=== PATIENT | female | born 1955 | race Hispanic/Latino ===

== ENCOUNTER 2018-11-01 11:42 | Emergency (ER) | payer OTHER ==
[2018-11-01] MEDS ORDERED: LORAZEPAM 0.5 MG TABLET ONE (12:15)
--- NOTE | 2018-11-01 12:25 | RAD REPORT ---
EXAM DESCRIPTION: CT - Head Brain Wo Cont - 11/01/2018 12:17 pm CLINICAL HISTORY: HEADACHE Headache, drowsiness COMPARISON: No comparisonsHEAD BRAIN W O CONTRAST dated 02/01/2013 TECHNIQUE: All CT scans are performed using dose optimization technique as appropriate and may inclu de automated exposure control or mA/KV adjustment according to patient size. FINDINGS: No intracranial hemorrhage, hydrocephalus or extra-axial fluid collection.No areas of brai n edema or evidence of midline shift. The paranasal sinuses and mastoids are clear. The calvarium is intact. IMPRESSION: No acute intracranial abnormality.
--- NOTE | 2018-11-01 13:21 | EDPHYS ---
Physician Documentation [facility] Name: Rosi Gaytan Age: 63 yrs Sex: Female : 1955 Arrival Date: 11/01/2018 Time: 11:45 Bed 13 Private MD: SHERLYN Physician Don Cordero HPI: 11/01 13:18 This 63 yrs old Female presents to ER via Ambulatory with complaints of pm1 Headache. 13:18 The patient complains of pain to the whole head. The patient describes the headache as pm1 aching. Onset: The symptoms/episode began/occurred just prior to arrival. Associated signs and symptoms: The patient has no apparent associated signs or symptoms, Pertinent negatives: dizziness, fever, nausea, rash, vomiting, weakness. Headache History: The patient has had previous headaches and this one is similar to previous episodes. The symptoms are alleviated by nothing. the symptoms are aggravated by stress, argument with . The patient has experienced similar episodes in the past, multiple times, and the symptoms today are exactly the same, to previous headaches with argument with her . Patient discovered that her was sleeping with prostitutes 3 months ago. He has tried to come home multiple times, today was the tenth time, but they get in arguments and he leaves. Today she had an argument with him and she was shaking all over and had a headache. 13:18 They are in the process of getting a divorce. pm1 Historical: - Allergies: 11:48 Ampicillin; sv - PMHx: 11:48 Diabetes - IDDM; GERD; Hyperlipidemia; Hypertension; Thyroid problem; sv - PSHx: 11:48 Tubal ligation; sv - Immunization history:: Adult Immunizations up to date. - Social history:: Smoking status: Patient/guardian denies using tobacco. - Ebola Screening: : No symptoms or risks identified at this time. ROS: 13:18 Constitutional: Negative for fever, chills, and weight loss, Eyes: Negative for injury, pm1 pain, redness, and discharge, ENT: Negative for injury, pain, and discharge, Neck: Negative for injury, pain, and swelling, Cardiovascular: Negative for chest pain, palpitations, and edema, Respiratory: Negative for shortness of breath, cough, wheezing, and pleuritic chest pain, Abdomen/GI: Negative for abdominal pain, nausea, vomiting, diarrhea, and constipation, Back: Negative for injury and pain, : Negative for injury, bleeding, discharge, and swelling, MS/Extremity: Negative for injury and deformity, Skin: Negative for injury, rash, and discoloration. 13:18 Neuro: Positive for headache, Negative for dizziness, numbness, tingling, weakness. Exam: 13:18 Constitutional: This is a well developed, well nourished patient who is awake, alert, pm1 and in no acute distress. Head/Face: Normocephalic, atraumatic. Eyes: Pupils equal round and reactive to light, extra-ocular motions intact. Lids and lashes normal. Conjunctiva and sclera are non-icteric and not injected. Cornea within normal limits. Periorbital areas with no swelling, redness, or edema. ENT: Nares patent. No nasal discharge, no septal abnormalities noted. Tympanic membranes are normal and external auditory canals are clear. Oropharynx with no redness, swelling, or masses, exudates, or evidence of obstruction, uvula midline. Mucous membranes moist. Neck: Trachea midline, no thyromegaly or masses palpated, and no cervical lymphadenopathy. Supple, full range of motion without nuchal rigidity, or vertebral point tenderness. No Meningismus. Chest/axilla: Normal chest wall appearance and motion. Nontender with no deformity. No lesions are appreciated. Cardiovascular: Regular rate and rhythm with a normal S1 and S2. No gallops, murmurs, or rubs. Normal PMI, no JVD. No pulse deficits. Respiratory: Lungs have equal breath sounds bilaterally, clear to auscultation and percussion. No rales, rhonchi or wheezes noted. No increased work of breathing, no retractions or nasal flaring. Abdomen/GI: Soft, non-tender, with normal bowel sounds. No distension or tympany. No guarding or rebound. No evidence of tenderness throughout. Back: No spinal tenderness. No costovertebral tenderness. Full range of motion. Skin: Warm, dry with normal turgor. Normal color with no rashes, no lesions, and no evidence of cellulitis. MS/ Extremity: Pulses equal, no cyanosis. Neurovascular intact. Full, normal range of motion. 13:18 Neuro: Orientation: is normal, Motor: is normal, moves all fours, strength is normal, strength is 5/5 in all extremities, Sensation: is normal, no obvious gross deficits. 13:18 Psych: Behavior/mood is anxious, Affect is animated, crying. Vital Signs: 11:48 BP 196 / 103; Pulse 103; Resp 22; Pulse Ox 100% ; Weight 102.51 kg; Height 5 ft. 2 in. sv (157.48 cm); Pain 0/10; 12:25 BP 169 / 103; Pulse 80; Resp 18; Temp 97.8(O); Pulse Ox 99% on R/A; mh5 13:16 BP 161 / 84; Pulse 77; Resp 17; Temp 97.5(O); Pulse Ox 100% on R/A; mh5 11:48 Body Mass Index 41.34 (102.51 kg, 157.48 cm) sv MDM: 11:56 Patient medically screened. pm1 13:18 Data reviewed: vital signs. Data interpreted: Pulse oximetry: on room air is 100 %. pm1 Interpretation: normal. Counseling: I had a detailed discussion with the patient and/or guardian regarding: the historical points, exam findings, and any diagnostic results supporting the discharge/admit diagnosis, radiology results, the need for outpatient follow up, to return to the emergency department if symptoms worsen or persist or if there are any questions or concerns that arise at home. 11/01 12:07 Order name: CT Head Brain wo Cont; Complete Time: 12:34 pm1 Administered Medications: 12:14 Drug: Ativan 0.5 mg Route: PO; bp 13:48 Follow up: Response: Anxiety decreased bp Disposition: 11/02 08:20 Co-signature as Attending Physician, Don Cordero MD I agree with the assessment and arun plan of care. Disposition: 11/01/18 13:20 Discharged to Home. Impression: Acute stress reaction, Headache. - Condition is Stable. - Discharge Instructions: General Headache Without Cause, Stress and Stress Management. - Prescriptions for Ativan 0.5 mg Oral Tablet - take 1 tablet by ORAL route every 8 hours As needed; 6 tablet. - Medication Reconciliation Form, Thank You Letter, Antibiotic Education, Prescription Opioid Use form. - Follow up: Emergency Department; When: As needed; Reason: Worsening of condition. Follow up: Private Physician; When: 2 - 3 days; Reason: Recheck today's complaints, Continuance of care, Re-evaluation by your physician. - Problem is new. - Symptoms have improved. Signatures: Dispatcher [employer] EDMignon Hernandez RN RN Don Rose MD MD cha Marinas, Patrick, MATT HYDROSTATIC TUBING TESTER pm1 Flaquito Shearer, RN RN bp Corrections: (The following items were deleted from the chart) 11/01 13:51 13:20 11/01/2018 13:20 Discharged to Home. Impression: Acute stress reaction; Headache. bp Condition is Stable. Forms are Medication Reconciliation Form, Thank You Letter, Antibiotic Education, Prescription Opioid Use. Follow up: Emergency Department; When: As needed; Reason: Worsening of condition. Follow up: Private Physician; When: 2 - 3 days; Reason: Recheck today's complaints, Continuance of care, Re-evaluation by your physician. Problem is new. Symptoms have improved. pm1
--- NOTE | 2018-11-01 13:21 | ER ---
Nurse's Notes [facility] Name: Rosi Gaytan Age: 63 yrs Sex: Female : 1955 Arrival Date: 11/01/2018 Time: 11:45 Bed 13 Private MD: Diagnosis: Acute stress reaction;Headache Presentation: 11/01 11:46 Presenting complaint: Patient states: "My came and pissed me off and then I sv started shaking and my heart was racing." Pt reports feeling like this the other day but today was worse. Denies physical abuse. c/o headache. Transition of care: patient was not received from another setting of care. Onset of symptoms was November 01, 2018. Risk Assessment: Do you want to hurt yourself or someone else? Patient reports no desire to harm self or others. Care prior to arrival: None. 11:46 Method Of Arrival: Ambulatory sv 11:46 Acuity: BILL 3 sv 13:51 Initial Sepsis Screen: Does the patient meet any 2 criteria? No. Patient's initial bp sepsis screen is negative. Does the patient have a suspected source of infection? No. Patient's initial sepsis screen is negative. Triage Assessment: 12:00 General: Appears in no apparent distress. comfortable, obese, Behavior is cooperative, bp appropriate for age, anxious. Pain: Complains of pain in head. EENT: No deficits noted. Neuro: Level of Consciousness is awake, alert, obeys commands, Oriented to person, place, time, situation, Appropriate for age. Cardiovascular: No deficits noted. Respiratory: No deficits noted. GI: No signs and/or symptoms were reported involving the gastrointestinal system. : No signs and/or symptoms were reported regarding the genitourinary system. Derm: No deficits noted. Musculoskeletal: No deficits noted. Historical: - Allergies: 11:48 Ampicillin; sv - PMHx: 11:48 Diabetes - IDDM; GERD; Hyperlipidemia; Hypertension; Thyroid problem; sv - PSHx: 11:48 Tubal ligation; sv - Immunization history:: Adult Immunizations up to date. - Social history:: Smoking status: Patient/guardian denies using tobacco. - Ebola Screening: : No symptoms or risks identified at this time. Screenin:00 Abuse screen: Denies threats or abuse. Denies injuries from another. Nutritional bp screening: No deficits noted. Tuberculosis screening: No symptoms or risk factors identified. Fall Risk None identified. Assessment: 12:00 General: SEE TRIAGE NOTE. Pain: Complains of pain in head. bp 13:48 Reassessment: PT D/C HOME AMBULATORY, DX WITH ACUTE STRESS REACTION. bp Vital Signs: 11:48 BP 196 / 103; Pulse 103; Resp 22; Pulse Ox 100% ; Weight 102.51 kg; Height 5 ft. 2 in. sv (157.48 cm); Pain 0/10; 12:25 BP 169 / 103; Pulse 80; Resp 18; Temp 97.8(O); Pulse Ox 99% on R/A; mh5 13:16 BP 161 / 84; Pulse 77; Resp 17; Temp 97.5(O); Pulse Ox 100% on R/A; mh5 11:48 Body Mass Index 41.34 (102.51 kg, 157.48 cm) sv ED Course: 11:45 Patient arrived in ED. rg4 11:47 Triage completed. sv 11:48 Arm band placed on. sv 11:50 Niranjan Koehler NP is PHCP. pm1 11:50 Don Cordero MD is Attending Physician. pm1 12:00 Flaquito Shearer, R[place] is Primary Nurse. bp 12:22 CT Head Brain wo Cont In Process Unspecified. EDMS 13:16 Patient has correct armband on for positive identification. Call light in reach. Pulse mh5 ox on. NIBP on. 13:48 No provider procedures requiring assistance completed. Patient did not have IV access bp during this emergency room visit. Administered Medications: 12:14 Drug: Ativan 0.5 mg Route: PO; bp 13:48 Follow up: Response: Anxiety decreased bp Outcome: 13:20 Discharge ordered by . pm1 13:49 Discharged to home ambulatory. bp 13:49 Condition: stable 13:49 Discharge instructions given to patient, Instructed on discharge instructions, follow up and referral plans. medication usage, Demonstrated understanding of instructions, follow-up care, medications, Prescriptions given X 1. 13:51 Patient left the ED. bp Signatures: Dispatcher [employer] EDMignon Hernandez RN RN Niranjan Koehler NP PROJECT DIRECTOR pm1 Ines Rodriguez rg4 Viv Atkins [facility] Flaquito Shearer RN RN bp Corrections: (The following items were deleted from the chart) 11:46 Presenting complaint: Patient states: "My came and pissed me off and then sv I started shaking and my heart was racing." Pt reports feeling like this the other day but today was worse. Denies physical abuse. sv 11:46 Acuity: BILL 4 sv sv
[2018-11-01 14:03] VITALS: BP 161/84; TEMP 97.5; O2SAT 100
== END 2018-11-01 13:51 | disposition home or self-care (01) ==
LOC: ER 11:42
DX: F43.0 Acute stress reaction (principal); Z88.1 Allergy status to other antibiotic agents
CPT/HCPCS: 70450; 99284

== ENCOUNTER 2018-11-10 09:05 | Emergency (ER) | payer OTHER ==
[2018-11-10] MEDS ORDERED: LORAZEPAM 0.5 MG TABLET ONE (09:14)
--- NOTE | 2018-11-10 09:59 | ER ---
Nurse's Notes [facility] Name: Rosi Gaytan Age: 63 yrs Sex: Female : 1955 Arrival Date: 11/10/2018 Time: 09:10 Bed 17 Private MD: Diagnosis: Anxiety disorder, unspecified Presentation: 11/10 09:10 Presenting complaint: EMS states: Pt is going through a divorce, pt states "My jacobo got me upset.". Transition of care: patient was not received from another setting of care. Onset of symptoms was November 10, 2018. Risk Assessment: Do you want to hurt yourself or someone else? Patient reports no desire to harm self or others. Initial Sepsis Screen: Does the patient meet any 2 criteria? No. Patient's initial sepsis screen is negative. Does the patient have a suspected source of infection? No. Patient's initial sepsis screen is negative. Care prior to arrival: None. 09:10 Method Of Arrival: EMS: [facility] 09:10 Acuity: BILL 3 jl7 Historical: - Allergies: 09:12 Ampicillin; jl7 - PMHx: 09:12 Diabetes - IDDM; GERD; Hyperlipidemia; Hypertension; Thyroid problem; jl7 - PSHx: 09:12 Tubal ligation; jl7 - Immunization history:: Adult Immunizations unknown. - Social history:: Smoking status: unknown. - Ebola Screening: : No symptoms or risks identified at this time. Screenin:15 Abuse screen: Denies threats or abuse. Denies injuries from another. Nutritional jl7 screening: No deficits noted. Tuberculosis screening: No symptoms or risk factors identified. Fall Risk None identified. Assessment: 09:16 General: Appears in no apparent distress. uncomfortable, Behavior is cooperative, jl7 anxious, crying. Pain: Denies pain. Neuro: Level of Consciousness is awake, alert, obeys commands, Oriented to person, place, time, situation. Cardiovascular: Patient's skin is warm and dry. Respiratory: Airway is patent Respiratory effort is even, unlabored, Respiratory pattern is regular, symmetrical. GI: No signs and/or symptoms were reported involving the gastrointestinal system. : No signs and/or symptoms were reported regarding the genitourinary system. EENT: No signs and/or symptoms were reported regarding the EENT system. Derm: Skin is pink, warm \\T\\ dry. Musculoskeletal: No signs and/or symptoms reported regarding the musculoskeletal system. 09:45 Reassessment: Patient appears in no apparent distress at this time. Patient states jl7 feeling better. Patient states symptoms have improved. Vital Signs: 09:12 BP 160 / 64; Pulse 89; Resp 16 S; Temp 98.9(O); Pulse Ox 100% on R/A; jl7 10:11 BP 118 / 64; Pulse 87; Resp 16 S; Pulse Ox 98% on R/A; jl7 ED Course: 09:09 Liza Me[facility] F[facility]-C [facility]. kb 09:09 Don Cordero MD is Attending Physician. kb 09:10 Patient arrived in ED. jl7 09:12 Triage completed. jl7 09:12 Arm band placed on right wrist. jl7 09:13 Chris Cornejo RN is Primary Nurse. jl7 09:15 Patient has correct armband on for positive identification. Placed in gown. Bed in low jl7 position. Call light in reach. Side rails up X 1. court recording monitor on. Pulse ox on. NIBP on. Warm blanket given. 10:12 No provider procedures requiring assistance completed. Patient did not have IV access jl7 during this emergency room visit. Administered Medications: 09:15 Drug: Ativan 0.5 mg Route: PO; jl7 09:45 Follow up: Response: No adverse reaction; Anxiety decreased jl7 Outcome: 09:59 Discharge ordered by . kb 10:12 Discharged to home ambulatory. jl7 10:12 Condition: stable 10:12 Discharge instructions given to patient, family, Instructed on discharge instructions, follow up and referral plans. medication usage, Demonstrated understanding of instructions, follow-up care, medications, Prescriptions given X 1. 10:12 Patient left the ED. jl7 Signatures: Liza Meza FNP-C FNP-Chris Alicia, RN RN jl7
--- NOTE | 2018-11-10 10:00 | EDPHYS ---
Physician Documentation [facility] Name: Rosi Gaytan Age: 63 yrs Sex: Female : 1955 Arrival Date: 11/10/2018 Time: 09:10 Bed 17 Private MD: ED Physician Don Cordero HPI: 11/10 09:12 This 63 yrs old Female presents to ER via EMS with complaints of Anxiety. kb 09:12 The patient presents to the emergency department with anxiety, over a relationship. kb Onset: The symptoms/episode began/occurred just prior to arrival. Associated signs and symptoms: Pertinent positives; anxiety, tremor. Severity of symptoms: At their worst the symptoms were moderate in the emergency department the symptoms are unchanged. The patient has not experienced similar symptoms in the past. The patient has not recently seen a physician. Pt reports she got into an argument with her this morning. States she was here getting blood work done and he started yelling at her on the phone about the hospital charging too much money. States she drove back home and he continued to yell and cuss at her. She started shaking after that and felt tingling all over so she called 911. Pt is tearful while recalling argument with . Historical: - Allergies: 09:12 Ampicillin; jl7 - PMHx: 09:12 Diabetes - IDDM; GERD; Hyperlipidemia; Hypertension; Thyroid problem; jl7 - PSHx: 09:12 Tubal ligation; jl7 - Immunization history:: Adult Immunizations unknown. - Social history:: Smoking status: unknown. - Ebola Screening: : No symptoms or risks identified at this time. ROS: 09:10 Constitutional: Negative for fever, chills, and weight loss, ENT: Negative for injury, kb pain, and discharge, Neck: Negative for injury, pain, and swelling, Cardiovascular: Negative for chest pain, palpitations, and edema, Respiratory: Negative for shortness of breath, cough, wheezing, and pleuritic chest pain, Abdomen/GI: Negative for abdominal pain, nausea, vomiting, diarrhea, and constipation, Back: Negative for injury and pain, MS/Extremity: Negative for injury and deformity, Skin: Negative for injury, rash, and discoloration. 09:10 Neuro: Positive for "shaking and tingling all over". Exam: 09:11 Constitutional: This is a well developed, well nourished patient who is awake, alert, kb and in no acute distress. Head/Face: Normocephalic, atraumatic. ENT: Nares patent. No nasal discharge, no septal abnormalities noted. Tympanic membranes are normal and external auditory canals are clear. Oropharynx with no redness, swelling, or masses, exudates, or evidence of obstruction, uvula midline. Mucous membranes moist. Neck: Trachea midline, no thyromegaly or masses palpated, and no cervical lymphadenopathy. Supple, full range of motion without nuchal rigidity, or vertebral point tenderness. No Meningismus. Chest/axilla: Normal chest wall appearance and motion. Nontender with no deformity. No lesions are appreciated. Cardiovascular: Regular rate and rhythm with a normal S1 and S2. No gallops, murmurs, or rubs. Normal PMI, no JVD. No pulse deficits. Respiratory: Lungs have equal breath sounds bilaterally, clear to auscultation and percussion. No rales, rhonchi or wheezes noted. No increased work of breathing, no retractions or nasal flaring. Abdomen/GI: Soft, non-tender, with normal bowel sounds. No distension or tympany. No guarding or rebound. No evidence of tenderness throughout. Skin: Warm, dry with normal turgor. Normal color with no rashes, no lesions, and no evidence of cellulitis. MS/ Extremity: Pulses equal, no cyanosis. Neurovascular intact. Full, normal range of motion. Neuro: Awake and alert, GCS 15, oriented to person, place, time, and situation. Cranial nerves II-XII grossly intact. Motor strength 5/5 in all extremities. Sensory grossly intact. Cerebellar exam normal. Normal gait. 09:11 Psych: Behavior/mood is cooperative, anxious, Affect is calm, Oriented to person, place, time, Patient has no thoughts/intents to harm self or others. Judgement / Insight is normal. Memory is normal. Delusions/hallucinations are not present. Vital Signs: 09:12 BP 160 / 64; Pulse 89; Resp 16 S; Temp 98.9(O); Pulse Ox 100% on R/A; jl7 10:11 BP 118 / 64; Pulse 87; Resp 16 S; Pulse Ox 98% on R/A; jl7 MDM: 09:09 Patient medically screened. kb 09:57 Data reviewed: vital signs, nurses notes. Data interpreted: Pulse oximetry: on room air kb is 100 %. Interpretation: normal. Counseling: I had a detailed discussion with the patient and/or guardian regarding: the historical points, exam findings, and any diagnostic results supporting the discharge/admit diagnosis, the need for outpatient follow up, a family practitioner, to return to the emergency department if symptoms worsen or persist or if there are any questions or concerns that arise at home. 09:57 ED course: Pt denies chest pain, shortness of breath. States she is feeling better now. kb . Administered Medications: 09:15 Drug: Ativan 0.5 mg Route: PO; jl7 09:45 Follow up: Response: No adverse reaction; Anxiety decreased jl7 Disposition: 10:32 Co-signature as Attending Physician, Don Cordero MD I agree with the assessment and arun plan of care. Disposition: 11/10/18 09:59 Discharged to Home. Impression: Anxiety disorder, unspecified. - Condition is Stable. - Discharge Instructions: Panic Attacks, [id number]. - Prescriptions for Hydroxyzine HCl 25 mg Oral Tablet - take 1 tablet by ORAL route every 6 hours As needed; 20 tablet. - Medication Reconciliation Form, Thank You Letter, Antibiotic Education, Prescription Opioid Use form. - Follow up: Emergency Department; When: As needed; Reason: Worsening of condition. Follow up: Private Physician; When: 2 - 3 days; Reason: Recheck today's complaints, Continuance of care, Re-evaluation by your physician. Signatures: Liza Meza, MANUFACTURING TECHNOLOGY ANALYST-C MANUFACTURING TECHNOLOGY ANALYST-Ckb Don Cordero MD MD cha Leal, Jahala RN RN jl7 Corrections: (The following items were deleted from the chart) 10:12 09:59 11/10/2018 09:59 Discharged to Home. Impression: Anxiety disorder, unspecified. jl7 Condition is Stable. Forms are Medication Reconciliation Form, Thank You Letter, Antibiotic Education, Prescription Opioid Use. Follow up: Emergency Department; When: As needed; Reason: Worsening of condition. Follow up: Private Physician; When: 2 - 3 days; Reason: Recheck today's complaints, Continuance of care, Re-evaluation by your physician. kb
[2018-11-10 10:45] VITALS: TEMP 98.9
[2018-11-10 10:46] VITALS: BP 118/64; O2SAT 98
== END 2018-11-10 10:12 | disposition home or self-care (01) ==
LOC: ER 09:05
DX: F41.9 Anxiety disorder, unspecified (principal); I10 Essential (primary) hypertension; Z88.1 Allergy status to other antibiotic agents
CPT/HCPCS: 99284

== ENCOUNTER 2018-12-13 08:40 | Day surgery (SDC) | payer OTHER ==
[2018-12-13] MEDS ORDERED: NA CHLORIDE 0.9% 1,000 ML ONE (08:51)
--- NOTE | 2018-12-13 08:51 | RAD REPORT ---
EXAM DESCRIPTION: Isabell Bermudez (2 Views)12/13/2018 8:39 am CLINICAL HISTORY: Preop for hernia surgery. Hypertension COMPARISON: May 2018 FINDINGS: The lungs appear clear of acute infiltrate. The heart is normal size IMPRESSION: No acute abnormalities displayed
[2018-12-13 08:55] LABS: Absolute Lymphocytes (CBC) 2.1 K/uL (0.7-4.9); Basophils % 0.6 % (0-1.3); Hematocrit 37.8 % (36.0-45.0); Lymphocytes % 24.8 % (15.3-44.8); MPV 9.1 fL (7.6-11.3); RBC Red Blood Cell Count 4.43 M/uL (3.86-4.86)
[2018-12-13 09:13] LABS: Potassium 4.2 mmol/L (3.5-5.1)
[2018-12-13] MEDS ORDERED: FENTANYL CITR 100 MCG/2 ML ONE (09:31)
[2018-12-13] MEDS ORDERED: PROPOFOL 200 MG/20 ML VIAL IV ONE (09:31)
[2018-12-13] MEDS ORDERED: ROCURONIUM 50 MG/5 ML VIAL IV ONE (09:31)
[2018-12-13] MEDS ORDERED: MIDAZOLAM HCL 2 MG/2 ML INJ ONE (09:32)
[2018-12-13] MEDS ORDERED: LIDOCAINE 2% MPF 5 ML VIAL ONE (09:32)
[2018-12-13] MEDS: CIPROFLOXACIN 400mg IV 400 MG/200 ML BAG IV ONE ×2 (09:36→10:15)
[2018-12-13] MEDS ORDERED: ONDANSETRON 4 MG/2 ML VIAL ONE (09:37)
[2018-12-13] MEDS ORDERED: NEOSTIGMINE 1 MG/ML -5 ML ONE (10:45)
[2018-12-13] MEDS ORDERED: GLYCOPYRROLATE 0.2 MG/ML SYR ONE (10:45)
[2018-12-13 12:03] VITALS: TEMP 97.5; O2SAT 96
[2018-12-13] MEDS ORDERED: CODEINE 30MG/APAP 300MG TAB ONE (12:19)
--- NOTE | 2018-12-13 12:20 | EKG ---
Test Date: 2018-12-13 Test Time: 09:24:48 Lapel Padder Blindstitch: TIFF MEASUREMENT RESULTS: Intervals: Rate: 77 CA: 166 QRSD: 98 QT: 396 QTc: 448 [place]: P: 49 CA: 166 QRS: 34 T: 32 INTERPRETIVE STATEMENTS: Normal sinus rhythm Normal ECG Compared to ECG 11/26/2016 01:22:06 No significant changes Electronically Signed On 12-13-18 12:19:12 [employer] CASHIER by Virgilio Bender
[2018-12-13] MEDS ORDERED: HYDROCODONE/APAP 7.5/325 MG TAB ONE (12:22)
[2018-12-13 13:25] VITALS: BP 126/78
--- NOTE | 2018-12-13 22:37 | OP ---
Date of Procedure: 12/13/2018 Surgeon: Everette Hughes MD Preoperative Diagnosis: Umbilical hernia. Postoperative Diagnosis: Umbilical hernia. Procedure: Repair of umbilical hernia. Estimated Blood Loss: Minimal. Specimen: Hernia sac and contents. Findings: As above. Anesthesia: General. Complications: None. Disposition: Patient tolerated the procedure in stable condition, taken to Recovery in good general condition. Description Of Procedure: Patient was brought to the OR and placed in supine position. General anes thesia was begun. Patient was prepped and draped in usual sterile fashion. Marcaine 0.5% was infilt rated locally. A 15-blade was used to make a 4 cm supraumbilical midline incision. Subcutaneous tis leeroy was divided and then the umbilical stalk identified and freed from the surrounding tissue. It chambers s been released from the fascia. Approximately a 1 cm defect remained which was the hernia and there was a hernia sac associated with it with incarcerated omentum in it which was removed and sent to Pa thology as specimen. Then, #1 PDS [id number] suture was used to close the hernia defect. Wound was irrigated. Bleeding was controlled with cautery. Then, the umbilical stalk reattached to the f ascia with 3-0 chromic and 3-0 chromic used to approximate the subcutaneous tissue and staple used to close the skin. Sterile dressing was applied. Patient was awakened and taken to Recovery in good general condition. ADELA/MODThang Voice ID: [id number] Report ID: [id number]
--- NOTE | 2018-12-13 22:40 | DS ---
Date of Discharge: 12/13/2018 Patient will go to Day Surgery, then home when stable. Disposition: Home. Condition: Stable. Discharge Instructions: Resume home medications and diet. Activity as tolerated. No heavy lifting. Remove outer dressing in 2 days. Shower. Keep wound clean and dry. Follow up in my office in a w [place]. Call for appointment. Abdominal binder as ordered. Tylenol No. 3 one tablet p.o. q.4 p.r.n. p ain. ADELA/SANCHEZ Voice ID: [id number] Report ID: [id number]
== END 2018-12-13 13:27 | disposition home or self-care (01) ==
LOC: OR 08:40
PROVIDERS: ATTEND Surgery
PROC: 0WQF0ZZ Repair Abdominal Wall, Open Approach (ICD-10-PCS; principal; 2018-12-13 10:00)
DX: K42.9 Umbilical hernia without obstruction or gangrene (principal); E11.9 Type 2 diabetes mellitus without complications; I10 Essential (primary) hypertension; Z88.0 Allergy status to penicillin
CPT/HCPCS: 93005; 85025; 80048; 36415; 82947 ×2; 88302; 71046; 49585; J2704; J2250; J3010; J2710; J7030; J2405; J0744

== ENCOUNTER 2019-11-07 06:36 | Day surgery (SDC) | payer OTHER ==
[2019-10-31 10:39] LABS: Absolute Lymphocytes (CBC) 2.3 K/uL (0.7-4.9); Basophils % 0.9 % (0-1.3); Hematocrit 38.4 % (36.0-45.0); Lymphocytes % 25.5 % (15.3-44.8); MPV 8.9 fL (7.6-11.3); RBC Red Blood Cell Count 4.55 M/uL (3.86-4.86)
[2019-10-31 10:42] LABS: Protime INR 1.05
[2019-10-31 10:54] LABS: Urine Appearance CLEAR; Urine Bilirubin NEGATIVE (NEG); Urine Blood NEGATIVE (NEG); Urine Color YELLOW; Urine Glucose NEGATIVE (NEG); Urine Protein NEGATIVE (NEG); Urine Specific Gravity 1.015 (1.005-1.030); Urine Urobilinogen 0.2 mg/dL (0.2-1.0)
[2019-10-31 10:56] LABS: Potassium 4.2 mmol/L (3.5-5.1)
[2019-10-31 11:04] LABS: Urine Microscopic Reflex NO UMIC
--- OUTSIDE RECORDS SUMMARY | 2019-11-07 06:39 | XMS REPORT | Clinical Summary ---
:1955 Author Organization [facility] Address [address] [place] [address] Care Team Providers Name Role Phone Yosef Diaz DO Primary Care Provider Allergies Active Allergy Reactions Severity Noted Date Comments Ampicillin 07/28/2017 Medications Medication Sig Dispensed Refills Start Date End Date Status levothyroxine 0 05/15/2017 Activ e (SYNTHROID, LEVOXYL) 125 mcg tablet LANTUS SOLOSTAR U-100 0 07/21/2017 Active INSULIN 100 unit/mL injection (pen) ascorbic acid, vitamin Take 1,000 mg by 0 Active C, (vitamin C) 1000 MG mouth daily. tablet CONTOUR NEXT TEST 0 04/20/2017 A ctive STRIPS strip test strips meloxicam (MOBIC) 7.5 0 06/15/2017 Active mg tablet omeprazole (PriLOSEC) 0 05/15/2017 Active 20 MG capsule EDARBYCLOR 40-25 mg 0 07/25/2017 Active tablet simvastatin (ZOCOR) 20 0 05/15/2017 Active MG tablet LYRICA 150 mg capsule 0 05/31/2017 Active traMADol (ULTRAM) 50 mg 0 04/29/2017 Active tablet nortriptyline (PAMELOR) Take 10 mg by 0 Active 10 MG capsule mouth nightly. metFORMIN (GLUCOPHAGE) Take 500 mg by 0 Active 500 mg tablet mouth 2 (two) times a day with meals. ibuprofen Take 200 mg by 0 Activ e (ADVIL,MOTRIN) 200 MG mouth every 6 tablet (six) hours as needed for mild pain. acetaminophen-codeine Take 1 tablet by 0 Active (TYLENOL WITH CODEINE mouth every 4 #3) 300-30 mg per (four) hours as tablet needed for moderate pain. Active Problems Problem Noted Date Dyspnea 07/28/2017 Obstructive sleep apnea, adult 07/28/2017 Encounters Date Type Specialty Care Team Description 11/21/2018 Office Visit Urology Herbert Lazcano MD Renal le michael (Primary Dx) 11/21/2018 Orders Only Urology Lili Romero MA Renal l esion after 11/06/2018 Family History Medical History Relation Name Comments Heart attack Father Stroke Father Arthritis Mother Cancer Mother Thyroid disease Mother Arthritis Sister Diabetes Sister Relation Name Status Comments Father Mother Sister Social History Tobacco Use Types Packs/Day Years Used Date Never Smoker Smokeless Tobacco: Never Used Alcohol Use Drinks/Week oz/Week Comments No Sex Assigned at Date Recorded Not on file Last Filed Vital Signs Not on file Plan of Treatment Health Maintenance Due Date Last Done Comments DIABETIC RETINAL EYE EXAM 1955 DIABETIC FOOT EXAM 04/23/1965 URINE MICROALBUMIN 04/23/1965 CERVICAL CANCER SCREENING 04/23/1976 BREAST CANCER SCREENING 04/23/2005 COLONOSCOPY SCREENING 04/23/2005 SHINGLES VACCINES (#1) 04/23/2005 INFLUENZA VACCINE 09/09/2019 Results Not on fileafter 11/06/2018 Advance Directives For more information, please contact: [phone] Type Date 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
--- OUTSIDE RECORDS SUMMARY | 2019-11-07 06:40 | XMS REPORT | Continuity of Care Document ---
:1955 Author Organization [employer] Care Team Providers Name Role Phone [employer] Unavailable Un available Problems Problem Status Onset Classification Date Comments [facility] e Date Reported Complete rotator cuff 11/30/19 12/01/2017 [facility] tear or rupture of 18 right shoulder, not specified as traumatic Dyspnea (finding) Active 07/10/19 Problem 12/01/2017 with [facility] 18 activity, no chest pains with activity, lv with cardio was 2 mo ago, ECHO was done and pt said it was normal Hypertensive disorder, Active 02/08/19 Problem 12/01/2017 [facility] systemic arterial 15 (disorder) Diabetes mellitus Active 02/08/19 Problem 12/01/2017 takes lantu s bid [facility] (disorder) 14 fbs 87-100, takes 1 oral med bid Acid reflux (finding) Active Problem 12/01/2017 [facility] Hypercholesterolemia Active Problem 12/01/2017 [facility] (disorder) Hypothyroidism Active Problem 12/01/2017 [facility] (disorder) Pain of right shoulder Active Problem 12/01/2017 [facility] joint (finding) Sleep apnea (finding) Active Problem 12/01/2017 not usi ng [facility] cpap Medications Medication Details Route Status Patient Ordering Order Source Instructions Provider Date [facility] Medication 700 mL, Inactive 11/29/ [facility] Soln-IV, IV, 2018 Once, first dose 11/29/17 12:40:00 CDT, stop date 11/29/17 12:40:00 CDT Acetaminophen 325 Notes: Max 4gm Inactive 11/29/ [facility] MG / Hydrocodone acetaminophen 2018 Bitartrate 10 MG in 24 hours Oral Tablet [[place] 10325] Zofran 4 mg = 2 mL, Inactive 11/29/ [facility] Injection, IV 2018 Push, q30min PRN for nausea/vomiting , order duration: 2 doses, first dose 11/29/17 12:28:00 CDT, stop date Limited # of times Diphenhydramine 25 mg = 0.5 mL, Inactive 11/29/ [facility] Injection, IV 2018 Push, Once PRN for itching, first dose 11/29/17 12:27:00 CDT Hydralazine 10 mg = 0.5 mL, Inactive 11/29/ [facility] I Injection, IV 2018 Push, As Indicated PRN for hypertension, first dose 11/29/17 12:27:00 CDT Promethazine 12.5 mg = 0.5 Inactive 11/29/ [facility] mL, Injection, 2018 IM, Once PRN for vomiting, first dose 11/29/17 12:27:00 CDT Ondansetron 4 mg = 2 mL, Inactive 11/29/ [facility] Injection, IV 2018 Push, q15min PRN for nausea, order duration: 2 doses, first dose 11/29/17 12:27:00 CDT, stop date Limited # of times Labetalol 5 mg = 1 mL, Inactive [facility] Injection, IV 2018 Push, As Indicated PRN for hypertension, first dose 11/29/17 12:27:00 CDT Levalbuterol 0.21 0.63 mg = 3 mL, Inactive 11/29 / [facility] MG/ML Inhalant Soln, NEB, Once 2018 Solution PRN for [Xopenex] wheezing, first dose 11/29/17 12:27:00 CDT Demerol HCl 12.5 mg = 0.5 Inactive 11/29/ [facility] mL, Injection, 2018 IV Push, Once PRN for shivers, first dose 11/29/17 12:27:00 CDT Morphine 2 mg = 0.2 mL, Inactive [facility] Injection, IV 2018 Push, q5min PRN for pain, first dose 11/29/17 12:27:00 CDT Dilaudid 0.5 mg = 0.5 Inactive 11/29/ [facility] mL, Injection, 2018 IV Push, q10min PRN for pain severe (7-10), first dose 11/29/17 12:27:00 CDT Robinul 0.2 mg = 1 mL, Inactive 11/29/ [facility] Injection, IV 2018 Push, Once PRN for bradycardia, first dose 11/29/17 12:27:00 CDT Bupivacaine 0.25% 300 mL, Nerve Inactive 11/29/ [facility] 300 mL pump 300 Block, 5 mL/hr, 2018 mL start date 11/29/17 12:27:00 CDT Saline Lock Flush 10 mL, Soln, IV Inactive 11/29 [facility] Push, As 2018 Indicated PRN for flush, first dose 11/29/17 12:27:00 CDT LR 1,000 mL 1,000 mL, IV, Inactive 11/29/ [facility] 75 mL/hr, start 201711/29/17 12:27:00 CDT labetalol 5 mg = 1 mL, Inactive [facility] Injection, IV, 2017 Once, first dose 11/29/17 12:21:00 CDT, stop date 11/29/17 12:21:00 CDT ketorolac 30 mg = 1 mL, Inactive [facility] Injection, IV, 2017 Once, first dose 11/29/17 12:11:00 CDT, stop date 11/29/17 12:11:00 CDT ondansetron 4 mg = 2 mL, Inactive [facility] Injection, IV, 2017 Once, first dose 11/29/17 12:10:00 CDT, stop date 11/29/17 12:10:00 CDT HYDROmorphone 0.5 mg = 0.25 Inactive CORRECTION I mL, Injection, 2017 IV, Once, first dose 11/29/17 10:23:00 CDT, stop date 11/29/17 10:23:00 CDT raNITIdine 50 mg, Inactive [facility] Injection, IV, 2017 Once, first dose 11/29/17 10:22:00 CDT, stop date 11/29/17 10:22:00 CDT fentaNYL 25 mcg = 0.5 Inactive [facility] mL, Injection, 2017 IV, Once, first dose 11/29/17 10:20:00 CDT, stop date 11/29/17 10:20:00 CDT midazolam 0.5 mg = 0.5 Inactive 11/29/ [facility] mL, Injection, 2017 IV, Once, first dose 11/29/17 10:20:00 CDT, stop date 11/29/17 10:20:00 CDT acetaminophen 1,000 mg, Inactive [facility] Soln-IV, IV 2018 Piggyback, Once, first dose 11/29/17 10:05:00 CDT, stop date 11/29/17 10:05:00 CDT Misc Medication 1,000 mL, Inactive [facility] Soln-IV, IV, 2018 Once, first dose 11/29/17 9:56:00 CDT, stop date 11/29/17 9:56:00 CDT metoclopramide 10 mg = 2 mL, Inactive [facility] Injection, IV, 2018 Once, first dose 11/29/17 9:45:00 CDT, stop date 11/29/17 9:45:00 CDT glycopyrrolate 0.2 mg = 1 mL, Inactive [facility] Injection, IV, 2018 Once, first dose 11/29/17 9:45:00 CDT, stop date 11/29/17 9:45:00 CDT fentaNYL 25 mcg = 0.5 Inactive [facility] mL, Injection, 2018 IV, Once, first dose 11/29/17 9:37:00 CDT, stop date 11/29/17 9:37:00 CDT midazolam 0.5 mg = 0.5 Inactive [facility] mL, Injection, 2018 IV, Once, first dose 11/29/17 9:37:00 CDT, stop date 11/29/17 9:37:00 CDT propofol 140 mg = 14 mL, Inactive [facility] Emulsion, IV, 2018 Once, first dose 11/29/17 9:23:00 CDT, stop date 11/29/17 9:23:00 CDT lidocaine 4 mL, Inactive [facility] Injection, IV, 2018 Once, first dose 11/29/17 9:23:00 CDT, stop date 11/29/17 9:23:00 CDT fentaNYL 50 mcg = 1 mL, Inactive [facility] Injection, IV, 2018 Once, first dose 11/29/17 8:54:00 CDT, stop date 11/29/17 8:54:00 CDT midazolam 1 mg = 1 mL, Inactive [facility] Injection, IV, 2018 Once, first dose 11/29/17 8:54:00 CDT, stop date 11/29/17 8:54:00 CDT Clindamycin 900 mg, Inactive [facility] Soln-IV, IV 2018 Piggyback, Once, infuse over 30 minutes, first dose 11/29/17 8:00:00 CDT, stop date 11/29/17 8:00:00 CDT, Prophylaxis Lidocaine 2% 0.2 0.2 mL, Inactive 11/29/ [facility] mL IV Start Injection, 2018 [[facility]] Subcutaneous, Once PRN for other (see comment), first dose 11/29/17 7:10:00 CDT LR 1,000 mL 1,000 mL, IV, Inactive 11/29/ [facility] 30 mL/hr, start 2018 date 11/29/17 7:10:00 CDT Omeprazole 20 MG 20 mg = 1 caps, Active 11/23/ [facility] Enteric Coated Oral, Daily, 2018 Capsule take on morning of surgery, 0 Refill(s), acid reflux metFORMIN 500 mg 1,000 mg = 2 Active 11/23/ [facility] oral tablet, tabs, Oral, 2018 extended release Daily, hold on morning of surgery, 0 Refill(s), diabetes Acetaminophen 300 1 tabs, Oral, Active 11/23/ [facility] MG / Codeine q6hr, PRN as 2018 Phosphate 30 MG needed for Oral Tablet pain, 0 [Tylenol with Refill(s), pain Codeine #3] Vitamin C 1,000 mg, Oral, Active 11/23/ [facility] BID, 0 2018 Refill(s), supplement Vitamin D3 1000 1,000 IntUnit = Active 11/23/ [facility] intl units oral 1 tabs, Oral, 2018 tablet Daily, # 30 tabs, 0 Refill(s), supplement nortriptyline 10 30 mg = 3 caps, Active 11/23/ [facility] mg oral capsule Oral, qHS, 0 2018 Refill(s), nerve pain Lantus 40 units, Active 11/23/ [facility] Subcutaneous, 2018 BID, take 1/2 dose on morning of surgery, 0 Refill(s), diabetes Lyrica 150 mg, Oral, Active 11/23/ [facility] BID, 0 2018 Refill(s), pain Thyroxine 125 mcg, Oral, Active 11/23/ [facility] Daily, ok to 2018 take on morning of surgery, 0 Refill(s), hypothryroid simvastatin 20 mg 20 mg = 1 tabs, Active 11/23/ [facility] oral tablet Oral, qHS, 0 2018 Refill(s), cholesterol azilsartan 1 tabs, Oral, Active medoxomil 40 MG / Daily, hold on 2017 Chlorthalidone 25 morning of MG Oral Tablet surgery, 0 [Edarbyclor Refill(s), ] hypertension Allergies, Adverse Reactions, Alerts Substance Category Reaction Severity Reaction Status Date Comments S ource type Reported ampicillin Assertion Cutaneous Drug Active [facility] eruption allergy (morphologi c abnormality ) Immunizations No Data Provided for This Section Results Order Name Results Value Reference Date Interpretation Comments Cathy rce Range LABORATORY Blood 128 74 - 106 11/29 Glucose, Capillary LABORATORY Results Reported 11/23 (11/23/17 10:01 AM) LABORATORY RDW 13.3 11.5 - 14.5 11/23 LABORATORY MCHC 33.6 32.0 - 36.0 11/23 LABORATORY MPV 9.6 7.4 - 10.4 11/23 LABORATORY Platelet 287 133 - 450 11/23 LABORATORY MCV 85.4 80.0 - 98.0 11/23 LABORATORY Hematocrit 38.5 36.0 - 48.0 11/23 LABORATORY Hemoglobin 12.9 12.0 - 16.0 11/23 LABORATORY Red Blood 4.50 4.20 - 5.40 11/23 Cell Count LABORATORY MCH 28.7 27.0 - 31.0 11/23 LABORATORY White Blood 8.4 3.7 - 10.4 11/23 Count LABORATORY Results Reported 11/23 (11/23/17 10:01 AM) LABORATORY eGFR 62 11/23 Result Comment: The eGFR is calculated using the CKD-EPI formula. In most young, healthy
i ndividuals the eGFR will be >90 mL/min/1.73m2 . The eGFR declines with age. An
eGFR of 60-89 may be normal in some populations, particularly the elderly, for
whom the CKD-EPI formula has not been extensively validated. Use of the eGFR is
not recommended in the following populations:< br/>Individua ls with unstable creatinine concentration s, including
patients and those with serious co-morbid conditions.<b r/>Patients with extremes in muscle mass or diet.
The data above are obtained from the National Kidney Disease Education Program
( NKDEP) which additionally recommends that when the eGFR is used in patients<br/& gt;with extremes of body mass index for purposes of drug dosing, the eGFR should
be multiplied by the estimated BMI. LABORATORY Calcium 9.0 8.5 - 10.5 11/23 [facility] Level /2017 LABORATORY AGAP 14.2 10.0 - 20.0 11/23 [facility] LABORATORY Carbon 29 24 - 32 11/23 [facility] Dioxide /2018 Level LABORATORY Chloride 98 95 - 109 11/23 [facility] Level /2017 LABORATORY Potassium 4.2 3.5 - 5.1 11/23 [facility] Level /2017 LABORATORY Sodium Level 137 135 - 145 11/23 LABORATORY Creatinine 0.98 0.50 - 1.40 11/23 LABORATORY BUN 21 7 - 22 11/23 LABORATORY Glucose Lvl 143 70 - 99 11/23 Result /2017 Comment: Adult reference range values reflect the clinical guidelines
of the [place] [employer]. LABORATORY Results Reported 11/23 (11/23/17 10:01 AM) LABORATORY Hgb A1c 10.4 <=5.6 % 11/23 LABORATORY Results Scanned 11/23 (11/23/17 10:01 AM) LABORATORY Monocyte # 0.6 0.0 - 0.8 11/23 LABORATORY Eosinophil % 0.2 0.0 - 0.5 11/23I LABORATORY Lymphocyte # 2.3 1.0 - 5.5 11/23I LABORATORY Basophil % 0.4 0.0 - 1.0 11/23 [facility] LABORATORY Neutrophil # 5.3 1.5 - 8.1 11/23 LABORATORY Lymphocyte % 27.7 20.0 - 40.0 11/23 LABORATORY Eosinophil # 2.0 0.0 - 4.0 11/23 LABORATORY Basophil # 0.0 0.0 - 0.2 11/23 LABORATORY Monocyte % 6.9 2.0 - 12.0 11/23 LABORATORY Neutrophil % 63.0 45.0 - 75.0 11/23 Pathology Reports No Data Provided for This Section Diagnostic Reports No Data Provided for This Section Consultation Notes No Data Provided for This Section Discharge Summaries No Data Provided for This Section History and Physicals No Data Provided for This Section Vital Signs Vital Sign Value Date Comments Source Systolic (mm Hg) 130 11/29/2017 [facility] Diastolic (mm Hg) 72 11/29/2017 [facility] Respitory Rate 15 11/29/2017 [facility] Peripheral Pulse Rate 69 11/29/2017 [facility] Systolic (mm Hg) 150 11/29/2017 [facility] Diastolic (mm Hg) 84 11/29/2017 [facility] Respitory Rate 16 11/29/2017 [facility] Heart Rate 68 11/29/2017 [facility] Respitory Rate 16 11/29/2017 [facility] Heart Rate 68 11/29/2017 [facility] Systolic (mm Hg) 149 11/29/2017 [facility] Diastolic (mm Hg) 85 11/29/2017 [facility] Heart Rate 71 11/29/2017 [facility] Temperature Oral (F) 36.8 Maribel 11/29/2017 [facility] Temperature Oral (F) 36.7 Maribel 11/29/2017 [facility] Peripheral Pulse Rate 77 11/29/2017 [facility] Weight Measured 102.8 11/29/2017 [facility] Height 157 cm 11/29/2017 [facility] Height 157 cm 11/23/2017 [facility] Weight Measured 102.8 11/23/2017 [facility] Encounters Location Location Encounter Encounter Reason Attending ADM DC Stat us Source Details Type Number For Provider Date Date Visit [facility] Outpatient [id number] [place] 11/29 11/29 Active Surgic al Mishra /2017 Specialty [facility] Outpatient [id number] [place] 11/29 11/29 [facility] Ludin Davisnett [facility] Preadmit [id number] [place] Active Surgical [facility] Procedures Procedure Code Date Perfomer Comments Source ARTHROSCOPY 11/29/2017 auto-populated [facility] SHOULDER FOR from documented EXCISION OF DISTAL surgical case CLAVICLE 11222 (Right)<sup>1</sup > ARTHROSCOPY 11/29/2017 auto-populated [facility] SHOULDER ROTATOR from documented CUFF REPAIR [id number] surgical case (Right)<sup>2</sup > ARTHROSCOPY 11/29/2017 auto-populated [facility] SHOULDER W/BICEPS from documented TENDONESIS [id number] surgical case (Right)<sup>3</sup > ARTHROSCOPY 11/29/2017 auto-populated [facility] SHOULDER from documented W/SUBACROMIAL surgical case DECOMPRESSION/ACRO MIOPLASTY 83600 (Right)<sup>4</sup > UNLISTED 11/29/2017 auto-populated [facility] PROCEDURE-SHOULDER from documented [id number] surgical case (Right)<sup>5</sup > Assessment and Plan No Data Provided for This Section Plan of Care No Data Provided for This Section Social History Social History Date Source Social History TypeResponse 10/18/2017 [facility] Smoking Status Never smoker Family History No Data Provided for This Section Advance Directives No Data Provided for This Section Functional Status No Data Provided for This Section
[2019-11-07] MEDS ORDERED: Ringers Lactate 1,000 ML IV ONE (07:08)
[2019-11-07] MEDS ORDERED: CEFAZOLIN/SWI 1gm 1 GM/10 ML SYR ONE (07:10)
[2019-11-07] MEDS ORDERED: NA CHLORIDE 0.9% 1,000 ML ONE (07:10)
[2019-11-07] MEDS ORDERED: FENTANYL CITR 100 MCG/2 ML ONE ×3 (07:37→10:32)
[2019-11-07] MEDS ORDERED: KETOROLAC 30 MG/ML INJ ONE (07:37)
[2019-11-07] MEDS ORDERED: propofoL 200 MG/20 ML VIAL IV ONE (07:37)
[2019-11-07] MEDS ORDERED: LIDOCAINE 2% MPF 5 ML VIAL ONE (07:37)
[2019-11-07] MEDS ORDERED: dexAMETHasone 10 MG/ML VIAL ONE (07:37)
[2019-11-07] MEDS ORDERED: ROCURONIUM 50 MG/5 ML VIAL IV ONE (07:37)
[2019-11-07] MEDS ORDERED: NS 0.9% VIAL 10 ML ONE (07:38)
[2019-11-07] MEDS ORDERED: ONDANSETRON 4 MG/2 ML VIAL ONE (07:38)
[2019-11-07] MEDS ORDERED: MIDAZOLAM HCL 2 MG/2 ML INJ ONE (07:38)
[2019-11-07] MEDS ORDERED: VECURONIUM 10 MG/VIAL IV ONE (07:38)
[2019-11-07] MEDS ORDERED: SCOPOLAMINE HYDROBROMIDE PATCH TD ONE (07:42)
[2019-11-07] MEDS: CEFAZOLIN/SWI 1gm 1 GM/10 ML SYR ONE ×2 (07:46→07:56)
[2019-11-07] MEDS: CEFAZOLIN/SWI 2gm 2 GM/20 ML SYR ONE ×2 (07:46→07:56)
[2019-11-07] MEDS ORDERED: VASOPRESSIN 20 UNIT/ML VIAL ONE (07:50)
[2019-11-07] MEDS ORDERED: BUPIVACAINE 0.25% PF 30 ML VIAL ONE (07:50)
[2019-11-07] MEDS ORDERED: NA CHLORIDE 0.9% 100 ML IV ONE (07:50)
[2019-11-07] MEDS: NA CHLORIDE 0.9% 1,000 ML ONE ×4 (08:49→12:47)
[2019-11-07] MEDS ORDERED: GLYCOPYRROLATE 0.2 MG/ML SYR ONE (11:33)
[2019-11-07] MEDS ORDERED: NEOSTIGMINE 1 MG/ML -5 ML ONE (11:33)
[2019-11-07] MEDS ORDERED: MORPHINE 4 MG/ML SYR IV PRN (11:49)
[2019-11-07] MEDS ORDERED: ONDANSETRON 4 MG (ODT) TAB PO PRN (11:49)
[2019-11-07] MEDS ORDERED: PROMETHAZINE INJ 25 MG/ML AMP IV PRN (11:49)
[2019-11-07] MEDS ORDERED: ACETAMINOPHEN 500 MG TAB PO PRN (11:49)
--- NOTE | 2019-11-07 12:06 | P.BOP ---
Preoperative diagnosis: PMB, stage 2 ant/post wall prolapse, uterine prolapse, occult BARTOLOME Postoperative diagnosis: above, post enterocele Primary procedure: TVH/Ant Post repair/ Rt SSLF colpopexy Secondary procedure: post enterocele repair/MUS/cysto, perineorrhaphy Food Scientist: Dr Mesa ([place] ) Estimated blood loss: 100 Specimen: uterus Findings: 0/0/-3/5/mod/7/0/+1/-2 Anesthesia: General Complications: None Drain(s): Urinary catheter Implants: TVT-O Fluids & blood products: none Taoist Transferred to: Recovery Room Condition: Good (UO 450, vaginal pack)
[2019-11-07] MEDS: HYDROMORPHONE HCL 1 MG/ML INJ ONE ×2 (12:33→13:02)
[2019-11-07] MEDS ORDERED: PROMETHAZINE INJ 25 MG/ML AMP ONE (12:44)
[2019-11-07] MEDS ORDERED: D50W 25 GM/50 ML SYRINGE/VIAL IV PRN (13:43)
[2019-11-07] MEDS ORDERED: GLUCAGON 1 MG/VIAL IM PRN (13:43)
[2019-11-07] MEDS ORDERED: INSULIN GLULISINE 8 UNIT SQ SCH (14:00)
[2019-11-07 16:04] VITALS: BMI 41.3
[2019-11-07] MEDS ORDERED: METFORMIN HCL 500 MG TAB PO SCH (17:00)
[2019-11-07] MEDS: Ringers Lactate 1,000 ML IV SCH (20:00)
[2019-11-07] MEDS: INSULIN LISPRO 100 UNIT/1 ML SQ SCH (21:00)
[2019-11-07] MEDS: INSULIN GLARGINE 100 UNITS/ML SQ SCH (21:00)
--- NOTE | 2019-11-07 21:04 | OP ---
Date of Procedure: 11/07/2019 Surgeon: Adela Chung MD Manager Auto: 1. Lazaro Mesa M.D. 2. Swati Curran. Preoperative Diagnoses: Postmenopausal bleeding, stage II anterior and posterior wall prolapse, uter ine prolapse, stage I occult stress urinary incontinence. Postoperative Diagnoses: Postmenopausal bleeding, stage II anterior and posterior wall prolapse, huslia rine prolapse, stage I occult stress urinary incontinence, posterior enterocele. Procedures Performed: Total vaginal hysterectomy, anterior and posterior repairs, right sacrospinous ligament fixation colpopexy using a posterior approach, posterior enterocele repair with perineorrha phy, mid urethral sling and cystoscopy. Estimated Blood Loss: 100. Urine Output: 450. Complications: No complications. Condition: Stable. Drains: Mejia catheter and vaginal packing. Findings: A 0, 0, -3, 5, moderate, 7 cm, 0, +1, -2. Anesthesia: General endotracheal. Disposition: No blood products given, the patient is a Rastafarian, and she was in a stable co ndition transferred to the PACU. Indications: The patient is a 64-year-old female diabetic, who presented with vaginal bulge and prol apse symptoms, had vaginal bleeding evaluated with ultrasound. No endometrial pathology was noted. No adnexal pathology was noted either. Underwent a cystoscopy in the office with no transitional taniya l tumors or diverticula. On urodynamic testing in the office, she was found to have occult stress ur inary incontinence. Her PVR was mostly negligible, less than 50. Her lowest Valsalva leak point pre ssure was 50 cm of water. Her maximal urethral closure pressure average was also 50 cm of water. So , we discussed about this. Although, she currently did not have any BARTOLOME symptoms. After discussing all the different options for treatment including pessary management and having abdominovaginal surge ry, options discussed, sacral colpopexy included. She was consented for a vaginal repair. The patie nt did not prefer to have any vaginal mesh other than the sling, which she understood was the best wa y to repair her stress urinary incontinence. Her Rastafarian copies of consent and the product s that she could use were all filed in the chart. She was consented understanding fully that. The c omplications included severe blood loss and sometimes, which could lead to . Description Of Procedure: After informed consent was verified, she was taken back to the OR. Her pr eop clearance was done by her primary care and clinical data abstractor, Dr. Diaz. Her glycemic control was o ptimal at this time, close to 7. Her fasting blood sugar prior to the surgery was 96. After the patient was taken back to OR, 3 g of Ancef were given, placed in a supine fashion, general anesthesia given, placed in a dorsal lithotomy position using candy-cane stirrups. Lower abdomen, vulva, vagina, and perineum were prepped and drap ed in a sterile fashion. Mejia placed to drain the bladder and clamped and retracted superiorly. On the pelvic exam, the POP-Q was as dictated in the findings above. The first procedure to be performed is vaginal hysterectomy. A mass clamp was placed on the cervix o n both anterior and posterior lips of the cervix. Then, the dilute vasopressin 1 in 20 units mixed i n 40 cc of normal saline was injected, 30 cc all around the cervical area, and then incision made wit h a #10 blade at the fold of the bladder with cervix and posteriorly in a similar plane. Once a circ umferential incision was made, the dissection was carried down to the cervical stromal tissue here an teriorly. The tissue was pushed superiorly to start dissecting and developing a plane between the ce rvix and the bladder. Posteriorly, the plane developed between the cervical stroma and the posterior cul-de-sac. Once the peritoneum was identified here in the posterior aspect, this was picked up and sharply incised with the help of [place] and the incision expanded laterally and a duckbill speculum wa s placed into the posterior cul-de-sac, then anteriorly dissection was carried on to reflect the vesi couterine peritoneum and the peritoneum was incised, entered the peritoneum here, and once the right angle speculum was placed here, then the uterosacral ligament was taken down with the help of Rudy clamp, first on the right, then on the left. Then, another cardinal ligament bite was taken on both sides 1 after the other. All these were tied with the help of 0 Vicryl stitch and using Rudy stitc h. Then, the bite was taken at the level of the uterine vessels with a Rudy clamp, first on the right, then on the left, and after these pedicles were secured and taken down, these were not tagged. The other 2 on each side were tagged with clamps. The fundus of the uterus was palpated and checking the size of the broad ligament and the utero-ovari an ligament and mesosalpinx and tube. This was a large bite to be taken here. So, 3 other bites wer e taken with a Rudy clamp, cut, and stitch tied before taking the fourth one, which it fr om the lateral wall. Then, on the right side, similar dissection was performed taking down in 3 furt her bites and once this was done, the topmost suture was used for transfixing the pedicle and then pu tting a simple tie behind it. There was excellent hemostasis at all the pedicles. The dissection wa s performed staying close to the uterus. Then, at the top of the vagina where the tube and ovary wer e present, they were pretty high and there were visualized on the right side very well and on the lef t side, the ovary was well visualized. The tube was difficult to visualize, however, there were no l esions and appeared to be smooth on the surface. As they were difficult for access, they were left i ntact. The peritoneum in the anterior aspect was held with the help of a 3-0 Vicryl suture on a small needle . Then, a pursestring suture was placed through the anterior peritoneum, then through the medial asp ect of the cardinal and the uterosacral pedicles. Then, the posterior peritoneum was run and then si milarly through the other left uterosacral and cardinal ligaments, and then the peritoneum was closed anteriorly. Pursestring was done to appose both peritoneal edges. In the posterior aspect while cl osing the peritoneum, a partial Bruce's was performed. The sutures on the cardinal ligament were passed through the anterior vaginal wall and the suture of the uterosacral passed through the posterior vaginal wall obliterating this space as well in the rect ovaginal area. This was done using a free needle. Similarly on the opposite side, this was done and these 2 stitches were tied to each other lateral to the angles and these were held on hemostats. The vaginal closure was performed anterior in a transverse fashion with the help of buried figure-of- eight sutures x4. There was excellent apposition of the epithelial edges. Bleeding was minimal. Procedure #2, anterior repair: Allis clamps were placed inferior to the urethrovesical junction on t he anterior wall. The anterior wall length here after the 3 cm of the urethra was, the remaining was left only 3.5 cm, so a clamp was placed right above the level of the vaginal cuff closure, injected with dilute vasopressin 10 cc. Vertical incision made through the skin to the vaginal epithelium and subepithelium. Connective tissue was dissected. The bladder was dissected inferiorly and laterally . The vaginal epithelium was excised about 0.5 cm on each side. Then, the proximal-most vaginal con nective tissue was brought together with the help of a 2-0 PDS suture and this was used to close anot her layer with the subepithelial tissues and then the suture was tied down. Then, the epithelial jseus sure was performed with the help of a 2-0 Vicryl in a continuous running horizontal mattress fashion from apex to the distal part. There was excellent closure and no shortening of the vaginal wall as a consequence of this, and there was no compromise in the narrowing, however, the wall appeared to be pulled up decently. Procedure#3, posterior enterocele repair and perineorrhaphy: The vaginal wall here was held with hel p of 3 Allis clamps, 1 at the very apex close to the inferior to the vaginal cuff closure, then in th e mid vaginal wall, and then 2 Allis clamps on each sides of the hymenal remnants. Then, dilute vaso pressin 30 cc was injected in the midline and on the lateral aspects, and then on the perineum as wel l. Then, dissection was performed making a shawna-shaped incision in the vaginal epithelial and sub epithelial tissues. This was dissected in the lower 1/2 and this epithelium was excised, then opened the rectovaginal space leaving as much of the rectovaginal connective tissue intact, but in the top 1/2, there was lack of this rectovaginal connective tissue as a continuous should go into the apex. So, enterocele was mostly present, enterocele was dissected away from the vaginal flaps on the top. Then, once the entire enterocele was dissected, then lateral dissection was performed taking down the rectovaginal connective tissue from the vaginal epithelium, creating a space in the right pararectal space going to the sacrospinous ligament. Once a skilled spine was cleared up, the sacrospinous lig ament was cleaned up through the coccygeus muscle. Then, prolene suture was used using a [employer] going on the mid ligament. The first 2 bites did not catch the ligament very well and so on the th ird bite, there was an excellent bite, made sure that the rectum was dissected medially and once I wa s satisfied with despite another bite was taken immediately lateral to it, at least 2 cm from the isc hial spine on the first 1 and probably slightly closer to it on the second 1 still at least a centime ter away. These 2 were held on 2 separate clamps marking 1 with a curved, other with a straight. The posterior enterocele was reduced using a help of a 3-0 Monocryl in a continuous running pursestri ng fashion once this was brought down together. Then, the uterosacral remnants on the top were held with 2 Allis clamps and then the sutures on the needle side of the Prolene suture were passed through the uterosacrals. The medial 1 staying more proximal and then the lateral 1 sling slightly distal o n both sides. Then, the vaginal epithelium was left as it is without trimming and then the sutures w ere tied down to the ischial spine without leaving a bridge. After both sutures were pulled back, th ere was at least 6-7 cm of vaginal length left. The perineum was also pulled up. Then, the vaginal epithelium was trimmed accordingly to prevent any narrowing of the vaginal introitus or the canal serenity meter and once this was done with a Jessa and the excised tissue was discarded, closure was performed with the help of a 2-0 Vicryl in a continuous running fashion. Before this was done, the rectovagin al connective tissue in the midline, which appeared to be very thin and pulled to the side without sp ecific defect, this was pulled back together with the help of 2-0 PDS suture starting in the top, com ing down, then the perineal body was also reconstructed with them and then the suture was tied in the retirement up the rectovaginal lower half plain. Then, the vaginal epithelial closure with a 2-0 Vicry l in a continuous running fashion. Perineal body repair as dictated above with the reconstruction of the perineal body with 2-0 PDS. Rectal exam was performed, no trauma. Mid urethral sling was performed. After changing the gloves, mid urethral area picked up with Allis clamps, injected with dilute vasopressin 10 cc underneath the urethra as well as on the lateral aspec ts where the tracts were to be created. A 1 cm incision made for the graft. Then, dissection was pe rformed at the subepithelial tissues under the connective tissue going to the ipsilateral superior pu bic ramus, hugging this anterior to the obturator space, perforated to the obturator membrane. Then, the track opened up. Similar dissection on the opposite side as well. Then, the wing guide placed, spike passed, turned in the usual fashion, exited at 1 cm lateral to the lateral groin fold above th e level of the horizontal line dropped at the level of the external meatus. Once the spike was retri eved, the needle was removed, dilator was pulled out, the sheath and the graft were held with a Jessa , similarly passed on the opposite side. Then, the tensioning was performed with the help of Metzenb aum scissors in the middle, sheaths pulled out, mesh trimmed very flushed with the skin. Skin closed with the help of Dermabond where the graft positioning was inspected and there was appropriate tensi oning and knot to tie. Once this was ensured, it was irrigated with normal saline, vaginal epithelia l closure with a 3-0 Vicryl in a continuous running locked fashion. Mejia was removed. There was 45 0 of urine output during this entire case. Cystoscopy with a 17-Turkish sheath, 30-degree lens, normal saline. Excellent streams of urine from b oth ureteric orifices. No evidence of any foreign body or trauma to the bladder. Anatomy of the kenyon dder mostly unremarkable other than trabeculations. The Mejia was replaced after the bladder was drained. Rectal exam performed negative. No sutures th rough the rectal wall. Vaginal packing was done, Mejia left in place, recovered from anesthesia. Instrument, needle, and sp onge counts x3 were correct at the end of the case. The patient tolerated the procedure well and she was recovered from the OR and taken to the PACU in stable condition. [facility] Voiding trial, removing the vaginal pack, checki ng her CBC and doing a BMP in the morning. If she passes the voiding trial, she is going to be disch arged home with voiding instructions. If not, she will go home with a catheter, Macrobid daily for p revention, and voiding trial on Wednesday. All the findings were discussed with her daughter and the pr kiko, and she understood this well. MARIE Voice ID: [id number] Report ID: [id number]
[2019-11-08] MEDS: Ringers Lactate 1,000 ML IV SCH (04:00)
[2019-11-08 05:38] LABS: Absolute Lymphocytes (CBC) 1.9 K/uL (0.7-4.9); Basophils % 0.5 % (0-1.3); Hematocrit 35.5 % (36.0-45.0); Lymphocytes % 13.6 % (15.3-44.8); MPV 8.7 fL (7.6-11.3); RBC Red Blood Cell Count 4.22 M/uL (3.86-4.86)
[2019-11-08] MEDS ORDERED: OLMESARTAN PO SCH (06:00)
[2019-11-08] MEDS ORDERED: HYDROCHLOROTHIAZIDE PO SCH (06:00)
[2019-11-08] MEDS ORDERED: VALSARTAN 160 MG TAB PO SCH (06:00)
[2019-11-08] MEDS ORDERED: hydroCHLOROthiazide 25 MG TAB PO SCH (06:00)
[2019-11-08] MEDS ORDERED: [UNRECOGNIZED DRUG - OTHER] PO SCH (06:00)
[2019-11-08 06:23] VITALS: O2SAT 94
[2019-11-08] MEDS ORDERED: LEVOTHYROXINE SOD 0.125 MG TAB PO SCH (06:30)
[2019-11-08 07:44] VITALS: BP 175/74; TEMP 97.9
[2019-11-08] MEDS ORDERED: PANTOPRAZOLE 40MG TABLET PO SCH (09:00)
[2019-11-08] MEDS ORDERED: HOME MED 1 EA UNK (Omeprazole [Omeprazole] 20 MG) PO SCH (09:00)
[2019-11-08] MEDS: INSULIN GLARGINE 100 UNITS/ML SQ SCH (09:10)
[2019-11-08] MEDS: INSULIN LISPRO 100 UNIT/1 ML SQ SCH (09:10)
[2019-11-08] MEDS ORDERED: INSULIN GLARGINE 100 UNITS/ML SQ ONE (13:27)
== END 2019-11-08 12:45 | disposition home or self-care (01) ==
LOC: OR 06:36 → 2ND-WC 12:01 → OR 11-08 12:45
PROVIDERS: ATTEND Obstetrics & Gynecology
PROC: 0USG7ZZ Reposition Vagina, Via Natural or Artificial Opening (ICD-10-PCS; 2019-11-07)
PROC: 0UQF7ZZ Repair Cul-de-sac, Via Natural or Artificial Opening (ICD-10-PCS; 2019-11-07)
PROC: 0TSD0ZZ Reposition Urethra, Open Approach (ICD-10-PCS; 2019-11-07)
PROC: 0JQC0ZZ Repair Pelvic Region Subcutaneous Tissue and Fascia, Open Approach (ICD-10-PCS; 2019-11-07)
PROC: 0WQNXZZ Repair Female Perineum, External Approach (ICD-10-PCS; 2019-11-07)
PROC: 0UT97ZZ Resection of Uterus, Via Natural or Artificial Opening (ICD-10-PCS; principal; 2019-11-07 07:30)
DX: N95.0 Postmenopausal bleeding (principal); N81.2 Incomplete uterovaginal prolapse; N39.3 Stress incontinence (female) (male); E11.9 Type 2 diabetes mellitus without complications; I10 Essential (primary) hypertension; E03.9 Hypothyroidism, unspecified; E78.00 Pure hypercholesterolemia, unspecified; M79.7 Fibromyalgia; Z20.828 Contact with and (suspected) exposure to other viral communicable diseases; Z88.0 Allergy status to penicillin; K21.9 Gastro-esophageal reflux disease without esophagitis; F41.9 Anxiety disorder, unspecified; E66.9 Obesity, unspecified
CPT/HCPCS: 57282; 57288; 85025 ×2; 80048 ×2; 36415 ×2; 85610; 82947 ×4; 88307; 85730; 81003; 58270; 57260; U0002; J2704; J2550; J1815 ×5; J2250; J3010 ×3; J1100; J1170; J2710; J0690 ×3; J7120 ×3; J7030 ×3; J2405

== ENCOUNTER 2022-09-28 13:06 | Emergency (ER) | payer OTHER ==
--- OUTSIDE RECORDS SUMMARY | 2022-09-28 13:11 | XMS REPORT | Continuity of Care Document ---
:1955 Author Organization [facility] t Address [address] [place] [address] [place] [id number] Care Team Providers Name Role Phone WINTERBRYANNA MARTINEZ Primary Care Physician Unavailable EDWIN HEARD Attending Clinician Unavailable [email or web address] Attending Clinician Unavailable REMA ECKERT Attending Clinician Unavailable Rema Eckert MD Attending Clinician Doctor Unassigned, [place] Attending Clinician Unavailable Horacio Moreira RN Attending Clinician Unavailable MJ BERRY Attending Clinician Unavailable Raul Albarran MD Attending Clinician Saima Alvarado MD Attending Clinician Mj Berry MD Attending Clinician CLEMENTINA ANDERSON Attending Clinician Unavailable Roberth Mishra Attending Clinician [email or web address]_S Admitting Clinician Unavailable MJ BERRY Admitting Clinician Unavailable Mj Berry MD Admitting Clinician Roberth Mishra Admitting Clinician Payers Payer Name Policy Type Policy Number Effective Date Expiration Date Lana beck [facility] MEDICARE [id number] COMPLETE (MEDICARE REPLACEMENT HMO) JARVIS/DYLAN [id number] 2022 MEDICARE ADVANTAGE 00:00:00 Problems Condition Condition Condition Status Onset Resolution Last Treating Co mments Source Name Details Category Date Date Treatment Clinician Date Weakness Weakness Disease Active Unive rs 4-01 ity of 00:00: [place] 00 Medical Branch Dyspnea Dyspnea Disease Active Methodi 07-28 st 00:00: [facility]osp[facility] 00 l Obstructiv Obstructiv Disease Active M ethodi e sleep e sleep 07-28 apnea, apnea, 00:00: Hospita adult adult 00 l Dyspnea Dyspnea Problem Active 2017-12-01 Me moria (finding) (finding) 07-09 04:00:36 l Active 00:00: [place] 07/09/2017 00 Problem 12/01/2017 with activity, no chest pains with activity, lv with cardio was 2 mo ago, ECHO was done and pt said it was normal [facility] Hypertensi Hypertens Problem Active 2017-12-01 Memoria ve wilmer 02-08 04:00:36 l disorder, disorder, 00:00: Herm jessica systemic systemic 00 arterial arterial (disorder) (disorder) Active 02/08/2014 Problem 12/01/2017 [facility] Diabetes Diabetes Problem Active 2017-12-01 Memoria mellitus mellitus 1- 04:00:36 l (disorder) (disorder) 00:00: He rmann Active 00 02/08/2013 Problem 12/01/2017 takes lantus bid
fb s 87-100, takes 1 oral med bid [facility] Hyperchole Hyperchol Problem Active 2017-12-01 Memoria sterolemia esterolemi 04:00:36 l (disorder) a Jose J n (disorder) Active Problem 12/01/2017 [facility] Hypothyroi Hypothyro Problem Active 2017-12-01 Memoria dism idism 04:00:36 l (disorder) (disorder) Arcadio rmann Active Problem 12/01/2017 [facility] Pain of Pain of Problem Active 2017-12-01 Me moria right right 04:00:36 l shoulder shoulder Jose J n joint joint (finding) (finding) Active Problem 12/01/2017 [facility] Sleep Sleep Problem Active 2017-12-01 Memor ia apnea apnea 04:00:36 l (finding) (finding) Herm jessica Active Problem 12/01/2017 not using cpap [facility] Acid Acid Problem Active 2017-12-01 Memor ia reflux reflux 04:00:36 l (finding) (finding) Herm jessica Active Problem 12/01/2017 [facility] History of Past Illness Condition Condition Condition Status Onset Resolution Last Treating Co mments Source Name Details Category Date Date Treatment Clinician Date Complete Complete Problem 2017-022017-12-01 2017-12-01 Memoria rotator rotator 04:00:36 04:00:36 l cuff tear cuff tear 05:00: Herm jessica or rupture or rupture 00 of right of right shoulder, shoulder, not not specified specified as as traumatic traumatic 11/29/2017 12/01/2017 [facility] Allergies, Adverse Reactions, Alerts Allergy Allergy Status Severity Reaction(s) Onset Inactive Treating Comm ents Source Name Type Date Date Clinician PENICILL DRUG Active Unknown-Cmnt Un tex IN INGREDI 05-09 ity of 00:00: [place] 00 Medical Branch Penicill Propensi Active Unknown - Uni vers in ty to See comments 05-09 ity of adverse 00:00: [place] reaction 00 Medical s Branch Ampicill Propensi Active Method i in ty to 07-28 st adverse 00:00: Hospita reaction 00 l s to drug ampicill ampicill Active Cutaneous Mem oria in in eruption l (morphologic Herm jessica abnormality) Family History Family Member Diagnosis Comments Start Date Stop Date Source Natural father Heart attack [facility] Natural father Stroke [facility] [place] [facility] Natural mother Arthritis [facility] [place] [facility] Natural mother Cancer [facility] [place] [facility] Natural mother Thyroid disease Metho dist [facility] Natural sister Arthritis [facility] [place] [facility] Natural sister Diabetes [facility] [place] [facility] Social History Social Habit Start Date Stop Date Quantity Comments Source History [facility] University o f Alcohol Std Drinks [place] [facility] History [facility] University o f Alcohol Binge [place] [facility] Gender identity [facility] [place] [facility] Sexual orientation [facility] ist Hospital History [facility] Food 2022-05-12 2022-05-12 1 Univers ity of Worry 00:00:00 00:00:00 [place] [facility] History [facility] Food 2022-05-12 2022-05-12 1 Univers ity of Scarcity 00:00:00 00:00:00 [place] [facility] History SDVT 2022-05-12 2022-05-12 2 University o f Transport Med 00:00:00 00:00:00 [place] [facility] History SDOH 2022-05-12 2022-05-12 2 University o f Transport Non-Med 00:00:00 00:00:00 [place] M ed[facility] Exposure to 2022-04-292022-05-09 Not sure University of SARS-CoV-2 (event) 00:00:00 18:23:00 [place] [facility] [place] Tobacco use and 2022-05-09 2022-05-09 Smokeless Universit y of exposure 00:00:00 00:00:[address] tobacco non-[address] [facility] dical Branch History SDOH 2022-05-09 2022-05-09 1 University o f Alcohol Frequency 00:00:00 00:00:00 [place] [facility] Alcohol intake 2018-11-04 2018-11-04 [facility] 00:00:00 00:00:00 non-drinker of Hospital alcohol (finding) History of Social 2018-11-04 2018-11-[address] function 00:00:00 00:00:00 Hospital Sex Ass[birth year] [facility] 00:00:[facility] 00:00:00 Hospital Smoking Status Start Date Stop Date Source Social History [facility] Medications Ordered Filled Start Stop Current Ordering Indication Dosage Frequency Signature Comments Components Source Medication Medication Date Date Medication? Clinician (SIG) Name Name aspirin Yes 81mg 81 mg, Univers chewable 4-04 Oral, ity of tablet 81 14:00: DAILY, [place] mg 00 First dose Medical on [facility] 05/12/22 at 0900, Until Discontinu ed, Routine nortriptyli 2022-0 Yes 30mg Take 3 Univ ers ne 10 mg 4-03 capsules ity of capsule 18:00: by mouth [place] [address] at Medical bedtime. Branch gabapentin 2022-0 Yes 300mg Take 1 Univ ers 300 mg 4-03 capsule by ity of capsule 18:00: mouth in [place] [address] the Medical morning Branch and 1 capsule at noon and 1 capsule in the evening. Omeprazole 2022-0 Yes 20mg Take 1 Unive rs 20 mg 4-03 tablet by ity of tablet 18:00: mouth [place] 42 every Medical morning. Branch levothyroxi 2022-0 Yes 88ug Take 1 Univ ers ne 4-03 tablet by ity of (SYNTHROID) 18:00: mouth [place] 88 mcg 42 every Medical tablet morning. Branch metFORMIN 2022-0 Yes 500mg Take 1 Unive rs 500 mg 4-03 tablet by ity of tablet 18:00: mouth in [place] [address] the Medical morning Branch and 1 tablet in the evening. Take with meals. insulin 2022-0 Yes 30U inject 30 Unive rs glargine,hu 4-03 Units ity of m.rec.anlog 18:00: under the [place] (LANTUS 42 skin at Medical SOLOSTAR bedtime. Branch U-100 INSULIN SC) lisinopriL- 0 Yes 1{tbl} Take 1 Un [place] hydrochloro 4-03 tablet by ity of thiazide 18:00: mouth in [place] 20-12.5 mg 42 the Medical per tablet morning. Branc h ascorbic 2022-0 Yes 500mg Take 1 Univer s acid, 4-03 tablet by ity of vitamin C, 18:00: mouth in [facility] as (VITAMIN C) 42 the Medical 500 mg morning Branch tablet and 1 tablet in the evening. Cholecalcif 2022-0 Yes 1000U Take 1 Uni vers bebo, 4-03 capsule by ity of Vitamin D3, 18:00: mouth in [place] (VITAMIN 42 the Medical D3) 25 mcg morning Branch (1,000 and 1 unit) capsule in capsule the evening. omega 2022-0 Yes 1000mg Take 1 Univers 3-dha-epa-f 4-03 capsule by it y of christine oil 18:00: mouth in [place] (FISH OIL) 42 the Medical capsule morning Branch and 1 capsule in the evening. Take with meals. metoprolol 0 Yes 12.5mg Take 0.5 U nivers succinate 4-03 tablets by ity of XL 25 mg 24 18:00: mouth in [place] hr tablet 42 the Medical morning. Branch crisaborole 0 Yes 1{dose} Apply 1 Univers (EUCRISA) 2 4-03 Dose to ity o f % Oint 18:00: area(s) in [place] 42 the Medical morning Branch and 1 Dose in the evening. Apply a thin layer over eczematous areas nortriptyli 2022-0 Yes 30mg Take 3 Univ ers ne 10 mg 4-03 capsules ity of capsule 18:00: by mouth [place] [address] at Medical bedtime. Branch gabapentin 2022-0 Yes 300mg Take 1 Univ ers 300 mg 4-03 capsule by ity of capsule 18:00: mouth in [place] 42 the Medical morning Branch and 1 capsule at noon and 1 capsule in the evening. Omeprazole 2022-0 Yes 20mg Take 1 Unive rs 20 mg 4-03 tablet by ity of tablet 18:00: mouth [place] 42 every Medical morning. Branch levothyroxi 2022-0 Yes 88ug Take 1 Univ ers ne 4-03 tablet by ity of (SYNTHROID) 18:00: mouth [place] 88 mcg 42 every Medical tablet morning. Branch metFORMIN 3-0 Yes 500mg Take 1 Unive rs 500 mg 4-03 tablet by ity of tablet 18:00: mouth in [place] 42 the Medical morning Branch and 1 tablet in the evening. Take with meals. insulin 2022-0 Yes 30U inject 30 Unive rs glargine,hu 4-03 Units ity of m.rec.anlog 18:00: under the [place] (LANTUS 42 skin at [facility] bedtime. Branch U-100 INSULIN SC) lisinopriL- 2022-0 Yes 1{tbl} Take 1 Un tex hydrochloro 4-03 tablet by ity of thiazide 18:00: mouth in [place] 20-12.5 mg 42 the Medical per tablet morning. Branc h ascorbic 2022-0 Yes 500mg Take 1 Univer s acid, 4-03 tablet by ity of vitamin C, 18:00: mouth in [facility] as (VITAMIN C) 42 the Medical 500 mg morning Branch tablet and 1 tablet in the evening. Cholecalcif 2022-0 Yes 1000U Take 1 Uni vers bebo, 4-03 capsule by ity of Vitamin D3, 18:00: mouth in [facility] (VITAMIN 42 the Medical D3) 25 mcg morning Branch (1,000 and 1 unit) capsule in capsule the evening. omega 3-0 Yes 1000mg Take 1 Univers 3-dha-epa-f 4-03 capsule by it y of christine oil 18:00: mouth in [place] (FISH OIL) 42 the Medical capsule morning Branch and 1 capsule in the evening. Take with meals. metoprolol 2022-0 Yes 12.5mg Take 0.5 U nivers succinate 4-03 tablets by ity of XL 25 mg 24 18:00: mouth [place] hr tablet 42 the Medical morning. Branch crisaborole 2022-0 Yes 1{dose} Apply 1 Univers (EUCRISA) 2 4-03 Dose to ity o f % Oint 18:00: area(s) in [place] [address] the Medical morning Branch and 1 Dose in the evening. Apply a thin layer over eczematous areas nortriptyli 2023-0 Yes 30mg Take 3 Univ ers ne 10 mg 4-03 capsules ity of capsule 18:00: by mouth [place] [address] at Medical bedtime. Branch gabapentin 2023-0 Yes 300mg Take 1 Univ ers 300 mg 4-03 capsule by ity of capsule 18:00: mouth in [place] [address] the Medical morning Branch and 1 capsule at noon and 1 capsule in the evening. Omeprazole 2023-0 Yes 20mg Take 1 Unive rs 20 mg 4-03 tablet by ity of tablet 18:00: mouth [place] [address] every Medical morning. Branch levothyroxi 3-0 Yes 88ug Take 1 Univ ers ne 4-03 tablet by ity of (SYNTHROID) 18:00: mouth [place] 88 mcg 42 every Medical tablet morning. Branch metFORMIN 3-0 Yes 500mg Take 1 Unive rs 500 mg 4-03 tablet by ity of tablet 18:00: mouth in [place] [address] the Medical morning [place] and 1 tablet in the evening. Take with meals. insulin 2022-0 Yes 30U inject 30 Unive rs glargine,hu 4-03 Units ity of m.rec.anlog 18:00: under the [place] (LANTUS 42 skin at [facility] bedtime. Branch U-100 INSULIN SC) lisinopriL- 2022-0 Yes 1{tbl} Take 1 Un tex hydrochloro 4-03 tablet by ity of thiazide 18:00: mouth in [place] 20-12.5 mg 42 the Medical per tablet morning. Branc h ascorbic 2023-0 Yes 500mg Take 1 Univer s acid, 4-03 tablet by ity of vitamin C, 18:00: mouth in [facility] as (VITAMIN C) 42 the Medical 500 mg morning Branch tablet and 1 tablet in the evening. Cholecalcif 2023-0 Yes 1000U Take 1 Uni vers bebo, 4-03 capsule by ity of Vitamin D3, 18:00: [place] (VITAMIN 42 the Medical D3) 25 mcg morning Branch (1,000 and 1 unit) capsule in capsule the evening. omega 2023-0 Yes 1000mg Take 1 Univers 3-dha-epa-f 4-03 capsule by it y of christine oil 18:00: mouth in [place] (FISH OIL) 42 the Medical capsule morning Branch and 1 capsule in the evening. Take with meals. metoprolol 2022-0 Yes 12.5mg Take 0.5 U nivers succinate 4-03 tablets by ity of XL 25 mg 24 18:00: mouth in [place] hr tablet 42 the Medical morning. Branch crisaborole 2022-0 Yes 1{dose} Apply 1 Univers (EUCRISA) 2 4-03 Dose to ity o f % Oint 18:00: area(s) in [place] 42 the Medical morning Branch and 1 Dose in the evening. Apply a thin layer over eczematous areas nortriptyli 2022-0 Yes 30mg Take 3 Univ ers ne 10 mg 4-03 capsules ity of capsule 18:00: by mouth [place] [address] at Medical bedtime. Branch gabapentin 2022-0 Yes 300mg Take 1 Univ ers 300 mg 4-03 capsule by ity of capsule 18:00: mouth in [place] [address] the Medical morning Branch and 1 capsule at noon and 1 capsule in the evening. Omeprazole 2022-0 Yes 20mg Take 1 Unive rs 20 mg 4-03 tablet by ity of tablet 18:00: mouth [place] [address] every Medical morning. Branch levothyroxi 2022-0 Yes 88ug Take 1 Univ ers ne 4-03 tablet by ity of (SYNTHROID) 18:00: mouth [place] 88 mcg 42 every Medical tablet morning. Branch metFORMIN 2022-0 Yes 500mg Take 1 Unive rs 500 mg 4-03 tablet by ity of tablet 18:00: mouth in [place] [address] the Medical morning Branch and 1 tablet in the evening. Take with meals. insulin 2022-0 Yes 30U inject 30 Unive rs glargine,hu 4-03 Units ity of m.rec.anlog 18:00: under the [place] (LANTUS 42 skin at [facility] SOLOSTAR bedtime. Branch U-100 INSULIN SC) lisinopriL- 2022-0 Yes 1{tbl} Take 1 Un tex hydrochloro 4-03 tablet by ity of thiazide 18:00: mouth in [place] 20-12.5 mg 42 the Medical per tablet morning. Branc h ascorbic 2022-0 Yes 500mg Take 1 Univer s acid, 4-03 tablet by ity of vitamin C, 18:00: mouth in [facility] as (VITAMIN C) 42 the Medical 500 mg morning Branch tablet and 1 tablet in the evening. Cholecalcif 2023-0 Yes 1000U Take 1 Uni vers bebo, 4-03 capsule by ity of Vitamin D3, 18:00: mouth [place] (VITAMIN 42 the Medical D3) 25 mcg morning Branch (1,000 and 1 unit) capsule in capsule the evening. omega 2023-0 Yes 1000mg Take 1 Univers 3-dha-epa-f 4-03 capsule by it y of christine oil 18:00: mouth in [place] (FISH OIL) 42 the Medical capsule morning Branch and 1 capsule in the evening. Take with meals. metoprolol 2023-0 Yes 12.5mg Take 0.5 U nivers succinate 4-03 tablets by ity of XL 25 mg 24 18:00: mouth in [facility] hr tablet 42 the Medical morning. Branch crisaborole 2023-0 Yes 1{dose} Apply 1 Univers (EUCRISA) 2 4-03 Dose to ity o f % Oint 18:00: area(s) in [place] 42 the Medical morning Branch and 1 Dose in the evening. Apply a thin layer over eczematous areas nortriptyli 2023-0 Yes 30mg Take 3 Univ ers ne 10 mg 4-03 capsules ity of capsule 18:00: by mouth [place] [address] at Medical bedtime. Branch nortriptyli 2023-0 Yes 30mg Take 3 Univ ers ne 10 mg 4-03 capsules ity of capsule 18:00: by mouth [place] [address] at Medical bedtime. Branch gabapentin 2023-0 Yes 300mg Take 1 Univ ers 300 mg 4-03 capsule by ity of capsule 18:00: mouth in [place] 42 the Medical morning Branch and 1 capsule at noon and 1 capsule in the evening. Omeprazole 2023-0 Yes 20mg Take 1 Unive rs 20 mg 4-03 tablet by ity of tablet 18:00: mouth [place] 42 every Medical morning. Branch levothyroxi 2023-0 Yes 88ug Take 1 Univ ers ne 4-03 tablet by ity of (SYNTHROID) 18:00: mouth [place] 88 mcg 42 every Medical tablet morning. Branch metFORMIN 2023-0 Yes 500mg Take 1 Unive rs 500 mg 4-03 tablet by ity of tablet 18:00: mouth in [place] 42 the Medical morning Branch and 1 tablet in the evening. Take with meals. insulin 2023-0 Yes 30U inject 30 Unive rs glargine,hu 4-03 Units ity of m.rec.anlog 18:00: under the [place] (LANTUS 42 skin at [facility] bedtime. Branch U-100 INSULIN SC) lisinopriL- 2022-0 Yes 1{tbl} Take 1 Un [place] hydrochloro 4-03 tablet by ity of thiazide 18:00: mouth in [place] 20-12.5 mg 42 the Medical per tablet morning. Branc h ascorbic 3-0 Yes 500mg Take 1 Univer s acid, 4-03 tablet by ity of vitamin C, 18:00: mouth in [facility] as (VITAMIN C) 42 the Medical 500 mg morning Branch tablet and 1 tablet in the evening. Cholecalcif 2022-0 Yes 1000U Take 1 Uni vers bebo, 4-03 capsule by ity of Vitamin D3, 18:00: mouth [place] (VITAMIN 42 the [facility] D3) 25 mcg morning Branch (1,000 and 1 unit) capsule in capsule the evening. omega 2022-0 Yes 1000mg Take 1 Univers 3-dha-epa-f 4-03 capsule by it y of christine oil 18:00: mouth in [place] (FISH OIL) 42 the Medical capsule morning Branch and 1 capsule in the evening. Take with meals. metoprolol 2022-0 Yes 12.5mg Take 0.5 U nivers succinate 4-03 tablets by ity of XL 25 mg 24 18:00: mouth in [facility] hr tablet 42 the Medical morning. Branch gabapentin 3-0 Yes 300mg Take 1 Univ ers 300 mg 4-03 capsule by ity of capsule 18:00: mouth in [place] [address] the Medical morning Branch and 1 capsule at noon and 1 capsule in the evening. crisaborole 2023-0 Yes 1{dose} Apply 1 Univers (EUCRISA) 2 4-03 Dose to ity o f % Oint 18:00: area(s) in [place] [address] the Medical morning Branch and 1 Dose in the evening. Apply a thin layer over eczematous areas Omeprazole 2023-0 Yes 20mg Take 1 Unive rs 20 mg 4-03 tablet by ity of tablet 18:00: mouth [place] 42 every Medical morning. Branch levothyroxi 2022-0 Yes 88ug Take 1 Univ ers ne 4-03 tablet by ity of (SYNTHROID) 18:00: mouth [place] 88 mcg 42 every Medical tablet morning. Branch metFORMIN 2022-0 Yes 500mg Take 1 Unive rs 500 mg 4-03 tablet by ity of tablet 18:00: mouth in [place] 42 the Medical morning Branch and 1 tablet in the evening. Take with meals. insulin 2022-0 Yes 30U inject 30 Unive rs glargine,hu 4-03 Units ity of m.rec.anlog 18:00: under the [place] (LANTUS 42 skin at [facility] bedtime. Branch U-100 INSULIN SC) lisinopriL- 2022-0 Yes 1{tbl} Take 1 Un tex hydrochloro 4-03 tablet by ity of thiazide 18:00: mouth in [place] 20-12.5 mg 42 the Medical per tablet morning. Branc h ascorbic 2022-0 Yes 500mg Take 1 Univer s acid, 4-03 tablet by ity of vitamin C, 18:00: mouth in [facility] as (VITAMIN C) 42 the Medical 500 mg morning Branch tablet and 1 tablet in the evening. Cholecalcif 2022-0 Yes 1000U Take 1 Uni vers bebo, 4-03 capsule by ity of Vitamin D3, 18:00: mouth in [facility] (VITAMIN 42 the Medical D3) 25 mcg morning Branch (1,000 and 1 unit) capsule in capsule the evening. omega 2022-0 Yes 1000mg Take 1 Univers 3-dha-epa-f 4-03 capsule by it y of christine oil 18:00: mouth in [place] (FISH OIL) 42 the Medical capsule morning Branch and 1 capsule in the evening. Take with meals. metoprolol 2022-0 Yes 12.5mg Take 0.5 U nivers succinate 4-03 tablets by ity of XL 25 mg 24 18:00: mouth in [facility] hr tablet 42 the Medical morning. Branch crisaborole 2022-0 Yes 1{dose} Apply 1 Univers (EUCRISA) 2 4-03 Dose to ity o f % Oint 18:00: area(s) in [place] 42 the Medical morning Branch and 1 Dose in the evening. Apply a thin layer over eczematous areas insulin Yes 15U 15 Units, Unive rs glargine 05-11 Subcutaneo ity o f (LANTUS 16:45: us, Q12H, [place] U-100) 00 First dose Medical injection (after Branch 15 Units last modificati on) on Wed05/11/22 at 1145, Until Discontinu ed, Routine simvastatin 2022- No 20mg Take 1 Uni vers 20 mg 05-11 tablet by ity of tablet 16:31: 00:00 mouth at [place] 14 :00 bedtime. Medical Branch insulin 2022- No 45U inject 45 Univ ers glargine,hu 05-11- Units ity of m.rec.anlog 16:31: 00:00 under the [place] (LANTUS 14 :00 skin every Medica l SOLOSTAR morning. [place] U-100 INSULIN SC) aspirin 2022- No 81mg Take 1 Univers (RAQUEL LOW 05-11 tablet by ity of DOSE 16:31: 00:00 mouth in [place] ASPIRIN) 81 14 :00 the Medical mg EC morning. [place] tablet perflutren 2022- No [id number] 3mL 3 mL, IV Univers protein-A 05-11- Push, ity of microsphr 15:30: 15:07 ONCE, 1 [place] (OPTISON) 00 :00 dose, On Medica l injection 3 Wed05/11/22 Br anch mL at 1030, Routine Saline 2022- No [id number] 6mL 6 mL, Unive rs Bubble 05-11 Injection, ity of Study 15:15: 15:04 SEE-INSTRU [place] 00 :00 CTIONS, 2 Medical doses, Branch Starting on Wed05/11/22 at 1015, Until Wed05/11/22 at 1004, Routine famotidine Yes 20mg 20 mg, Unive rs (PEPCID AC) 05-11 Oral, BID, it y of tablet 20 01:00: First dose [place] mg 00 on Sun Medical 05/10/22 at Branch 2000, Until Discontinu ed, Routine atorvastati Yes [id number] 40mg Take 1 Univers n 40 mg 4-03 tablet by ity of tablet 00:00: mouth at [place] 00 bedtime. Medical Branch clopidogreL 2022-0 Yes [id number] 75mg Take 1 Univers 75 mg 4-03 tablet by ity of tablet 00:00: mouth in [place] 00 the Medical morning. Branch Insulin 2022-0 Yes [id number] 15U inject 15 Univers Glargine 4-03 Units ity of (LANTUS 00:00: under the [place] SOLOSTAR 00 skin every Medic al U-100 morning. Branch INSULIN) 100 unit/mL (3 mL) injection atorvastati 2022-0 Yes [id number] 40mg Take 1 Univers n 40 mg 4-03 tablet by ity of tablet 00:00: mouth at [place] 00 bedtime. Medical Branch clopidogreL 2022-0 Yes [id number] 75mg Take 1 Univers 75 mg 4-03 tablet by ity of tablet 00:00: mouth in [place] the Medical morning. Branch Insulin 2022-0 Yes [id number] 15U inject 15 Univers Glargine 4-03 Units ity of (LANTUS 00:00: under the [place] SOLOSTAR 00 skin every Medic al U-100 morning. Branch INSULIN) 100 unit/mL (3 mL) injection atorvastati 2022-0 Yes [id number] 40mg Take 1 Univers n 40 mg 4-03 tablet by ity of tablet 00:00: mouth at [place] 00 bedtime. Medical Branch clopidogreL 2022-0 Yes [id number] 75mg Take 1 Univers 75 mg 4-03 tablet by ity of tablet 00:00: mouth in [place] the Medical morning. Branch Insulin 2022-0 Yes [id number] 15U inject 15 Univers Glargine 4-03 Units ity of (LANTUS 00:00: under the [place] SOLOSTAR 00 skin every Medic al U-100 morning. Branch INSULIN) 100 unit/mL (3 mL) injection atorvastati 2022-0 Yes [id number] 40mg Take 1 Univers n 40 mg 4-03 tablet by ity of tablet 00:00: mouth at [place] 00 bedtime. Medical Branch clopidogreL 2022-0 Yes [id number] 75mg Take 1 Univers 75 mg 4-03 tablet by ity of tablet 00:00: mouth in [place] 00 the Medical morning. Branch Insulin 2022-0 Yes [id number] 15U inject 15 Univers Glargine 4-03 Units ity of (LANTUS 00:00: under the [place] 00 skin every Medic al U-100 morning. Branch INSULIN) 100 unit/mL (3 mL) injection atorvastati Yes [id number] 40mg Take 1 Univers n 40 mg 4-03 tablet by ity of tablet 00:00: mouth at [place] 00 bedtime. Medical Branch clopidogreL Yes [id number] 75mg Take 1 Univers 75 mg 4-03 tablet by ity of tablet 00:00: mouth in [place] 00 the Medical morning. Branch Insulin Yes [id number] 15U inject 15 Univers Glargine 4-03 Units ity of (LANTUS 00:00: under the [place] 00 skin every Medic al U-100 morning. Branch INSULIN) 100 unit/mL (3 mL) injection atorvastati Yes [id number] 40mg Take 1 Univers n 40 mg 4-03 tablet by ity of tablet 00:00: mouth at [place] 00 bedtime. Medical Branch clopidogreL Yes [id number] 75mg Take 1 Univers 75 mg 4-03 tablet by ity of tablet 00:00: mouth in [place] the Medical morning. Branch Insulin Yes [id number] 15U inject 15 Univers Glargine 4-03 Units ity of (LANTUS 00:00: under the [place] SOLOSTWV 00 skin every Medic al U-100 morning. Branch INSULIN) 100 unit/mL (3 mL) injection enoxaparin Yes 40mg 40 mg, Unive rs (LOVENOX) 05-10 Subcutaneo ity of injection 22:00: [place], QPM, [place] 40 mg 00 First dose Medical on [place] 05/10/22 at 1700, Until Discontinu ed, Routine labetaloL Yes 10mg 10 mg, Univer s (NORMODYNE) 05-10 Slow IV ity o f injection 21:24: Push, [place] 10 mg 24 [id number], 5 Medical doses, Branch Starting on 05/10/22 at 1624, Until Discontinu ed, Routine, Hypertensi on SBP> 220 clopidogreL No 75mg 75 mg, Uni vers (PLAVIX) 75 05-10 Oral, ity of mg tablet 17:45: 16:41 DAILY, [place] 75 mg 00 :58 First dose Medical on [facility] 05/10/22 at 1245, Until Discontinu ed, Routine LORazepam Yes 2mg 2 mg, Slow Un [place] (ATIVAN) 05-10 IV Push, ity of injection 2 12:30: PRN - SEE [place] mg 05 [facility], Branch Starting on [place] 05/10/22 at 0730, Until Discontinu ed, Routine, claustroph opia a/w MRI levothyroxi Yes 88ug 88 mcg, Uni vers ne 05-10 Oral, ity of (SYNTHROID) 11:00: QAM-0600, [place] tablet 88 00 First dose Medi cb mcg on [facility] 05/10/22 at 0600, Until Discontinu ed, Routine omeprazole 2022- No 20mg 20 mg, Univ ers (PRILOSEC) 05-10 Oral, ity of capsule 20 11:00: 14:01 QAM-0600, [place] mg 00 :12 First dose Medical on [facility] 05/10/22 at 0600, Until Discontinu ed Sliding Yes Subcutaneo Univ ers Scale 05-10 us, TID ity of Insulin - 02:00: MEALS+HS, [place] as Lispro 00 First dose Medical (HumaLOG) + on [facility] 05/09/22 at Testing 2100, Until Discontinu ed, Routine atorvastati Yes 40mg 40 mg, Univ ers n (LIPITOR) 05-10 Oral, QHS, it y of tablet 40 02:00: First dose [place] mg 00 on [facility] 05/09/22 at Branch 2100, Until Discontinu ed, Routine gabapentin Yes 300mg 300 mg, Uni vers (NEURONTIN) 05-10 Oral, TID, it y of capsule 300 01:00: First dose [place] mg 00 on [facility] 05/09/22 at Branch 2000, Until Discontinu ed, Routine glucagon Yes 1mg 1 mg, Univers (GLUCAGEN 05-09 Intramuscu ity of DIAGNOSTIC 23:11: lar, PRN, [place] KIT) 17 Starting Medical injection 1 on Sat Branch mg 05/09/22 at 1811, Until Discontinu ed, NAVEED, Blood Glucose < or = 70 mg/dL and patient is NPO, unable to swallow or has mental changes. dextrose 50 Yes 25mL 25 mL, Univ ers % in water 05-09 Slow IV ity of (D50W) 23:11: Push, PRN, [place] injection 17 Starting Medica l 25 mL on Sat Branch 05/09/22 at 1811, Until Discontinu ed, NAVEED, Blood Glucose < or = 70 mg/dL and patient is NPO, unable to swallow or has mental status changes. labetaloL Yes 20mg 20 mg, Univer s (NORMODYNE) 05-09 Slow IV ity o f injection 20:08: Push, [place] 20 mg 05 [id number], Medical 15 doses, Branch Starting on 05/09/22 at 1508, Until Discontinu ed, Routine, BP goal < 185/110 pre-TNK; BP goal < 180/105 post-tnkTP A Tenecteplas 202- No .25mg/k 24.825 mg Univers e (TNKASE) 05-09 g (0.25 ity of for Acute 18:30: 17:47 mg/kg [place] Ischemic 00 :00 ?99.3 kg), Medic al Stroke Slow IV Branch Injection Push, 24.825 mg ONCE, 1 dose, On 05/09/22 at 1330, STAT
In dication: ACUTE ISCHEMIC STROKE iopamidol 202- No [id number] 80mL 80 mL, U nivers (ISOVUE 05-09 Intravenou ity o f 370-500 mL) 18:15: 18:15 s, ONCE, 1 [place] injection 00 :00 dose, On Medica l 80 mL 05/09/22 Branch at 1315, Routine NaCl 0.9% Yes IV Univers (NS) 1000 05-09 Infusion, ity o f mL + KCL 20 18:00: at 75 [place] mEq 00 mL/hr, Medical CONTINUOUS Branch , Starting on 05/09/22 at 1300, Until Discontinu ed, Routine acetaminoph Yes 650mg 650 mg, Un [place] 05-09 Oral, ity of (TYLENOL) 17:41: Q6HPRN, [place] tablet 650 32 Starting Medic al mg on Sat Branch 05/09/22 at 1241, Until Discontinu ed, Routine, Pain (scale 1-3), Pain (scale 4-6), Temp > 37.5 C labetaloL 2022- No 20mg 20 mg, Unive rs (NORMODYNE) 05-09 Slow IV ity of injection 17:31: 20:08 Push, [place] 20 mg 18 :52 [id number], Medical Starting Branch on 05/09/22 at 1231, Until 05/09/22 at 1508, Routine, BP goal < 185/110 pre-TNK; BP goal < 180/105 post-tnkTP A NaCl 0.9% Yes 5mL 5 mL, Slow Un [place] (NS) 05-09 IV Push, ity of injection 5 17:07: PRN - SEE [place] mL 35 INSTRUCTIO Medical NS, Branch Starting on 05/09/22 at 1207, Until Discontinu ed, 10 mL [facility] 2017-02 No 700 mL, Memoria Medication 0-22 Soln-IV, l 17:40: IV, Once, first dose 11/29/17 12:40:00 CDT, stop date 11/29/17 12:40:00 CDT [facility] No 700 mL, Memoria Medication 0-22 Soln-IV, l 17:40: IV, Once, first dose 11/29/17 12:40:00 CDT, stop date 11/29/17 12:40:00 CDT Acetaminoph 2017-02 Yes Notes: Max Memoria en 325 MG / 0-22 4gm l Hydrocodone 17:28: acetaminop [place] Bitartrate 00 hen in 24 10 MG Oral hours Tablet [Hays ] Zofran 2017-02 Yes 4 mg = 2 Memoria 0-22 mL, l 17:28: Injection, [place] 00 IV Push, q30min PRN for nausea/vom iting, order duration: 2 doses, first dose 11/29/17 12:28:00 CDT, stop date Limited # of times Acetaminoph 2017-02 Yes Notes: Max Memoria en 325 MG / 0-22 4gm l Hydrocodone 17:28: acetaminop [place] Bitartrate 00 hen in 24 10 MG Oral hours Tablet [Hays 10/325] Zofran 2017-02 Yes 4 mg = 2 Memoria 0-22 mL, l 17:28: Injection, [place] 00 IV Push, q30min PRN for nausea/vom iting, order duration: 2 doses, first dose 11/29/17 12:28:00 CDT, stop date Limited # of times Diphenhydra 2017-02 No 25 mg = Mem oria mine 0-22 0.5 mL, l 17:27: Injection, [place] 00 IV Push, Once PRN for itching, first dose 11/29/17 12:27:00 CDT Hydralazine 2017-02 No 10 mg = Mem oria 0-22 0.5 mL, l 17:27: Injection, [place] 00 IV Push, As Indicated PRN for hypertensi on, first dose 11/29/17 12:27:00 CDT Promethazin 2017-02 No 12.5 mg = M emoria e 0-22 0.5 mL, l 17:27: Injection, [place] 00 IM, Once PRN for vomiting, first dose 11/29/17 12:27:00 CDT Ondansetron 2017-02 No 4 mg = 2 Me moria 0-22 mL, l 17:27: Injection, [place] 00 IV Push, q15min PRN for nausea, order duration: 2 doses, first dose 11/29/17 12:27:00 CDT, stop date Limited # of times Labetalol 2017-02 No 5 mg = 1 Gerard rodri 0-22 mL, l 17:27: Injection, [place] 00 IV Push, As Indicated PRN for hypertensi on, first dose 11/29/17 12:27:00 CDT Levalbutero 2017-02 No 0.63 mg = M emoria l 0.21 0-22 3 mL, l MG/ML 17:27: Soln, NEB, Jose J n Inhalant 00 Once PRN Solution for [Xopenex] wheezing, first dose 11/29/17 12:27:00 CDT Demerol HCl 2017-02 No 12.5 mg = M emoria 0-22 0.5 mL, l 17:27: Injection, [place] 00 IV Push, Once PRN for shivers, first dose 11/29/17 12:27:00 CDT Morphine 2017-02 No 2 mg = 0.2 Mem oria 0-22 mL, l 17:27: Injection, [place] 00 IV Push, q5min PRN for pain, first dose 11/29/17 12:27:00 CDT Dilaudid 2017-02 No 0.5 mg = Memor ia 0-22 0.5 mL, l 17:27: Injection, [place] 00 IV Push, q10min PRN for pain severe (7-10), first dose 11/29/17 12:27:00 CDT Robinul 2017-02 No 0.2 mg = 1 Gerard rodri 0-22 mL, l 17:27: Injection, IV [place], Once PRN for bradycardi a, first dose 11/29/17 12:27:00 CDT Bupivacaine 2017-02 No 300 mL, Mem oria 0.25% 300 0-22 Nerve l mL pump 300 17:27: Block, 5 He rmann mL 00 mL/hr, start date 11/29/17 12:27:00 CDT Saline Lock 2017-02 No 10 mL, Gerard rodri Flush 0-22 Soln, IV l 17:27: Push, As Indicated PRN for flush, first dose 11/29/17 12:27:00 CDT LR 1,000 mL 2017-02 No 1,000 mL, M emoria 0-22 IV, 75 l 17:27: mL/hr, start date 11/29/17 12:27:00 CDT Diphenhydra 2017-02 No 25 mg = Mem oria mine 0-22 0.5 mL, l 17:27: Injection, [place] 00 IV Push, Once PRN for itching, first dose 11/29/17 12:27:00 CDT Hydralazine 2017-02 No 10 mg = Mem oria 0-22 0.5 mL, l 17:27: Injection, [place] 00 IV Push, As Indicated PRN for hypertensi on, first dose 11/29/17 12:27:00 CDT Promethazin 2017-02 No 12.5 mg = M emoria e 0-22 0.5 mL, l 17:27: Injection, [place] 00 IM, Once PRN for vomiting, first dose 11/29/17 12:27:00 CDT Ondansetron 2017-02 No 4 mg = 2 Me moria 0-22 mL, l 17:27: Injection, [place] 00 IV Push, q15min PRN for nausea, order duration: 2 doses, first dose 11/29/17 12:27:00 CDT, stop date Limited # of times Labetalol 2017-02 No 5 mg = 1 Gerard rodri 0-22 mL, l 17:27: Injection, [place] 00 IV Push, As Indicated PRN for hypertensi on, first dose 11/29/17 12:27:00 CDT Levalbutero 2017-02 No 0.63 mg = M emoria l 0.21 0-22 3 mL, l MG/ML 17:27: SolnBENTON, Jose J n Inhalant 00 Once PRN Solution for [Xopenex] wheezing, first dose 11/29/17 12:27:00 CDT Demerol HCl 2017-02 No 12.5 mg = M emoria 0-22 0.5 mL, l 17:27: Injection, [place] 00 IV Push, Once PRN for shivers, first dose 11/29/17 12:27:00 CDT Morphine 2017-02 No 2 mg = 0.2 Mem oria 0-22 mL, l 17:27: Injection, [place] 00 IV Push, q5min PRN for pain, first dose 11/29/17 12:27:00 CDT Dilaudid 2017-02 No 0.5 mg = Memor ia 0-22 0.5 mL, l 17:27: Injection, [place] 00 IV Push, q10min PRN for pain severe (7-10), first dose 11/29/17 12:27:00 CDT Robinul 2017-02 No 0.2 mg = 1 Gerard rodri 0-22 mL, l 17:27: Injection, [place] 00 IV Push, Once PRN for bradycardi a, first dose 11/29/17 12:27:00 CDT Bupivacaine 2017-02 No 300 mL, Mem oria 0.25% 300 0-22 Nerve l mL pump 300 17:27: Block, 5 He rmann mL 00 mL/hr, start date 11/29/17 12:27:00 CDT Saline Lock 2017-02 No 10 mL, Gerard rodri Flush 0-22 Soln, IV l 17:27: Push, As Indicated PRN for flush, first dose 11/29/17 12:27:00 CDT LR 1,000 mL 2017-02 No 1,000 mL, M emoria 0-22 IV, 75 l 17:27: mL/hr, [place] 00 start date 11/29/17 12:27:00 CDT labetalol 2017-02 No 5 mg = 1 Gerard rodri 0-22 mL, l 17:21: Injection, [place] 00 IV, Once, first dose 11/29/17 12:21:00 CDT, stop date 11/29/17 12:21:00 CDT labetalol 2017-02 No 5 mg = 1 Gerard rodri 0-22 mL, l 17:21: Injection, [place] 00 IV, Once, first dose 11/29/17 12:21:00 CDT, stop date 11/29/17 12:21:00 CDT ketorolac 2017-02 No 30 mg = 1 Mem oria 0-22 mL, l 17:11: Injection, [place] 00 IV, Once, first dose 11/29/17 12:11:00 CDT, stop date 11/29/17 12:11:00 CDT ketorolac 2017-02 No 30 mg = 1 Mem oria 0-22 mL, l 17:11: Injection, [place] 00 IV, Once, first dose 11/29/17 12:11:00 CDT, stop date 11/29/17 12:11:00 CDT ondansetron 2017-02 No 4 mg = 2 Me moria 0-22 mL, l 17:10: Injection, [place] 00 IV, Once, first dose 11/29/17 12:10:00 CDT, stop date 11/29/17 12:10:00 CDT ondansetron 2017-02 No 4 mg = 2 Me moria 0-22 mL, l 17:10: Injection, [place] 00 IV, Once, first dose 11/29/17 12:10:00 CDT, stop date 11/29/17 12:10:00 CDT HYDROmorpho 2017- No 0.5 mg = Me moria ne 0-22 0.25 mL, l 15:23: Injection, [place] 00 IV, Once, first dose 11/29/17 10:23:00 CDT, stop date 11/29/17 10:23:00 CDT HYDROmorpho 2017-02 No 0.5 mg = Me moria ne 0-22 0.25 mL, l 15:23: Injection, [place] 00 IV, Once, first dose 11/29/17 10:23:00 CDT, stop date 11/29/17 10:23:00 CDT raNITIdine 2017-02 No 50 mg, Memor ia 0-22 Injection, l 15:22: IV, Once, first dose 11/29/17 10:22:00 CDT, stop date 11/29/17 10:22:00 CDT raNITIdine 2017-02 No 50 mg, Memor ia 0-22 Injection, l 15:22: IV, Once, first dose 11/29/17 10:22:00 CDT, stop date 11/29/17 10:22:00 CDT fentaNYL 2017- No 25 mcg = Memor ia 0-22 0.5 mL, l 15:20: Injection, [place] 00 IV, Once, first dose 11/29/17 10:20:00 CDT, stop date 11/29/17 10:20:00 CDT midazolam 2017- No 0.5 mg = Gerard rodri 0-22 0.5 mL, l 15:20: Injection, [place] 00 IV, Once, first dose 11/29/17 10:20:00 CDT, stop date 11/29/17 10:20:00 CDT fentaNYL 2017- No 25 mcg = Memor ia 0-22 0.5 mL, l 15:20: Injection, [place] 00 IV, Once, first dose 11/29/17 10:20:00 CDT, stop date 11/29/17 10:20:00 CDT midazolam 2017- No 0.5 mg = Gerard rodri 0-22 0.5 mL, l 15:20: Injection, [place] 00 IV, Once, first dose 11/29/17 10:20:00 CDT, stop date 11/29/17 10:20:00 CDT acetaminoph 2017- No 1,000 mg, M emoria en 0-22 Soln-IV, l 15:05: IV [place] 00 Piggyback, Once, first dose 11/29/17 10:05:00 CDT, stop date 11/29/17 10:05:00 CDT acetaminoph 2017-02 No 1,000 mg, M emoria en 0-22 Soln-IV, l 15:05: IV [place] 00 Piggyback, Once, first dose 11/29/17 10:05:00 CDT, stop date 11/29/17 10:05:00 CDT Misc 2017-02 No 1,000 mL, Memoria Medication 0-22 Soln-IV, l 14:56: IV, Once, first dose 11/29/17 9:56:00 CDT, stop date 11/29/17 9:56:00 CDT Misc 2017-02 No 1,000 mL, Memoria Medication 0-22 Soln-IV, l 14:56: IV, Once, first dose 11/29/17 9:56:00 CDT, stop date 11/29/17 9:56:00 CDT metoclopram 2017-02 No 10 mg = 2 M emoria hanh 0-22 mL, l 14:45: Injection, [place] 00 IV, Once, first dose 11/29/17 9:45:00 CDT, stop date 11/29/17 9:45:00 CDT glycopyrrol 2017-02 No 0.2 mg = 1 Memoria ate 0-22 mL, l 14:45: Injection, [place] 00 IV, Once, first dose 11/29/17 9:45:00 CDT, stop date 11/29/17 9:45:00 CDT metoclopram 2018 No 10 mg = 2 M emoria hanh 0-22 mL, l 14:45: Injection, [place] 00 IV, Once, first dose 11/29/17 9:45:00 CDT, stop date 11/29/17 9:45:00 CDT glycopyrrol 2017-02 No 0.2 mg = 1 Memoria ate 0-22 mL, l 14:45: Injection, [place] 00 IV, Once, first dose 11/29/17 9:45:00 CDT, stop date 11/29/17 9:45:00 CDT fentaNYL 2017- No 25 mcg = Memor ia 0-22 0.5 mL, l 14:37: Injection, [place] 00 IV, Once, first dose 11/29/17 9:37:00 CDT, stop date 11/29/17 9:37:00 CDT midazolam 2017-02 No 0.5 mg = Gerard rodri 0-22 0.5 mL, l 14:37: Injection, [place] 00 IV, Once, first dose 11/29/17 9:37:00 CDT, stop date 11/29/17 9:37:00 CDT fentaNYL 2017-02 No 25 mcg = Memor ia 0-22 0.5 mL, l 14:37: Injection, [place] 00 IV, Once, first dose 11/29/17 9:37:00 CDT, stop date 11/29/17 9:37:00 CDT midazolam 2017-02 No 0.5 mg = Gerard rodri 0-22 0.5 mL, l 14:37: Injection, [place] 00 IV, Once, first dose 11/29/17 9:37:00 CDT, stop date 11/29/17 9:37:00 CDT propofol 2017-02 No 140 mg = Memor ia 0-22 14 mL, l 14:23: Emulsion, [place] 00 IV, Once, first dose 11/29/17 9:23:00 CDT, stop date 11/29/17 9:23:00 CDT lidocaine 2017- No 4 mL, Memoria 0-22 Injection, l 14:23: IV, Once, [place] 00 first dose 11/29/17 9:23:00 CDT, stop date 11/29/17 9:23:00 CDT propofol 2017-02 No 140 mg = Memor ia 0-22 14 mL, l 14:23: Emulsion, [place] 00 IV, Once, first dose 11/29/17 9:23:00 CDT, stop date 11/29/17 9:23:00 CDT lidocaine 2017- No 4 mL, Memoria 0-22 Injection, l 14:23: IV, Once, [place] 00 first dose 11/29/17 9:23:00 CDT, stop date 11/29/17 9:23:00 CDT fentaNYL 2017-02 No 50 mcg = 1 Mem oria 0-22 mL, l 13:54: Injection, [place] 00 IV, Once, first dose 11/29/17 8:54:00 CDT, stop date 11/29/17 8:54:00 CDT midazolam 2017-02 No 1 mg = 1 Gerard rodri 0-22 mL, l 13:54: Injection, [place] 00 IV, Once, first dose 11/29/17 8:54:00 CDT, stop date 11/29/17 8:54:00 CDT fentaNYL 2017-02 No 50 mcg = 1 Mem oria 0-22 mL, l 13:54: Injection, [place] IV, Once, first dose 11/29/17 8:54:00 CDT, stop date 11/29/17 8:54:00 CDT midazolam 2017-02 No 1 mg = 1 Gerard rodri 0-22 mL, l 13:54: Injection, [place] IV, Once, first dose 11/29/17 8:54:00 CDT, stop date 11/29/17 8:54:00 CDT Clindamycin 2017-02 No 900 mg, Mem oria 0-22 Soln-IV, l 13:00: IV [place] 00 Piggyback, Once, infuse over 30 minutes, first dose 11/29/17 8:00:00 CDT, stop date 11/29/17 8:00:00 CDT, Prophylaxi s Clindamycin 2017-02 No 900 mg, Mem oria 0-22 Soln-IV, l 13:00: IV [place] 00 Piggyback, Once, infuse over 30 minutes, first dose 11/29/17 8:00:00 CDT, stop date 11/29/17 8:00:00 CDT, Prophylaxi s Lidocaine 2017-02 No 0.2 mL, Memor ia 2% 0.2 mL 0 Injection, l IV Start 12:10: Subcutaneo Her cab[place]as [[facility]] 00 us, Once PRN for other (see comment), first dose 11/29/17 7:10:00 CDT LR 1,000 mL 2017-02 No 1,000 mL, M emoria 0-22 IV, 30 l 12:10: mL/hr, [place] 00 start date 11/29/17 7:10:00 CDT Lidocaine 2017-02 No 0.2 mL, Memor ia 2% 0.2 mL 0-22 Injection, l IV Start 12:10: Subcutaneo [place] [[facility]] 00 us, Once PRN for other (see comment), first dose 11/29/17 7:10:00 CDT LR 1,000 mL 2017-02 No 1,000 mL, M emoria 0-22 IV, 30 l 12:10: mL/hr, [place] 00 start date 11/29/17 7:10:00 CDT Omeprazole 2017-02 Yes 20 mg = 1 Me moria 20 MG 0-16 caps, l Enteric 16:49: Oral, [place] Coated 00 Daily, Capsule take on morning of surgery, 0 Refill(s), acid reflux metFORMIN 2017-02 Yes 1,000 mg = Me moria 500 mg oral 0-16 2 tabs, l tablet, 16:49: Oral, [place] extended 00 Daily, release hold on morning of surgery, 0 Refill(s), diabetes Acetaminoph 2017-02 Yes 1 tabs, Mem oria en 300 MG / 0-16 Oral, l Codeine 16:49: q6hr, PRN Elo nn Phosphate 00 as needed 30 MG Oral for pain, Tablet 0 [Tylenol Refill(s), with pain Codeine #3] Vitamin C 2017-02 Yes 1,000 mg, Mem oria 0-16 Oral, BID, l 16:49: 0 [place] 00 Refill(s), supplement Vitamin D3 2017-02 Yes 1,000 Memori a 1000 intl 0-16 IntUnit = l units oral 16:49: 1 tabs, Herm jessica tablet 00 Oral, Daily, # 30 tabs, 0 Refill(s), supplement nortriptyli 2017-02 Yes 30 mg = 3 M emoria ne 10 mg 0-16 caps, l oral 16:49: Oral, qHS, [place] capsule 00 0 Refill(s), nerve pain Lantus 2017-02 Yes 40 units, Memori a 0-16 Subcutaneo l 16:49: us, BID, [place] 00 take 1/2 dose on morning of surgery, 0 Refill(s), diabetes Lyrica 2017-02 Yes 150 mg, Memoria 0-16 Oral, BID, l 16:49: 0 [place] 00 Refill(s), pain Thyroxine 2017-02 Yes 125 mcg, Gerard rodri 0-16 Oral, l 16:49: Daily, ok [place] 00 to take on morning of surgery, 0 Refill(s), hypothryro id simvastatin 2017-02 Yes 20 mg = 1 M emoria 20 mg oral 0-16 tabs, l tablet 16:49: Oral, qHS, Elo nn 00 0 Refill(s), cholestero l azilsartan 2017-02 Yes 1 tabs, Gerard rodri medoxomil 0-16 Oral, l 40 MG / 16:49: Daily, [place] Chlorthalid 00 hold on one 25 MG morning of Oral Tablet surgery, 0 [Edarbyclor Refill(s), 40/25] hypertensi on Omeprazole 2017-02 Yes 20 mg = 1 Me moria 20 MG 0-16 caps, l Enteric 16:49: Oral, [place] Coated 00 Daily, Capsule take on morning of surgery, 0 Refill(s), acid reflux metFORMIN 2017-02 Yes 1,000 mg = Me moria 500 mg oral 0-16 2 tabs, l tablet, 16:49: Oral, [place] extended 00 Daily, release hold on morning of surgery, 0 Refill(s), diabetes Acetaminoph 2017-02 Yes 1 tabs, Mem oria en 300 MG / 0-16 Oral, l Codeine 16:49: q6hr, PRN Elo nn Phosphate 00 as needed 30 MG Oral for pain, Tablet 0 [Tylenol Refill(s), with pain Codeine #3] Vitamin C 2017-02 Yes 1,000 mg, Mem oria 0-16 Oral, BID, l 16:49: 0 [place] 00 Refill(s), supplement Vitamin D3 2017-02 Yes 1,000 Memori a 1000 intl 0-16 IntUnit = l units oral 16:49: 1 tabs, Herm jessica tablet 00 Oral, Daily, # 30 tabs, 0 Refill(s), supplement nortriptyli 2017-02 Yes 30 mg = 3 M emoria ne 10 mg 0-16 caps, l oral 16:49: Oral, qHS, [place] capsule 00 0 Refill(s), nerve pain Lantus 2017-02 Yes 40 units, Memori a 0-16 Subcutaneo l 16:49: us, BID, [place] 00 take 1/2 dose on morning of surgery, 0 Refill(s), diabetes Lyrica 2017-02 Yes 150 mg, Memoria 0-16 Oral, BID, l 16:49: 0 [place] 00 Refill(s), pain Thyroxine 2017-02 Yes 125 mcg, Gerard rodri 0-16 Oral, l 16:49: Daily, ok [place] 00 to take on morning of surgery, 0 Refill(s), hypothryro id simvastatin 2017-02 Yes 20 mg = 1 M emoria 20 mg oral 0-16 tabs, l tablet 16:49: Oral, qHS, Elo nn 00 0 Refill(s), cholestero l azilsartan 2017-02 Yes 1 tabs, Gerard rodri medoxomil 0-16 Oral, l 40 MG / 16:49: Daily, [place] Chlorthalid 00 hold on one 25 MG morning of Oral Tablet surgery, 0 [Edarbyclor Refill(s), 40/25] hypertensi on nortriptyli Yes 10mg QD Take 10 mg [facility] ne 6-[address] (PAMELOR) 15:01: nightly. [facility] 10 MG 27 l capsule metFORMIN Yes 500mg Q.5D Take 500 Met [facility] (GLUCOPHAGE 6-[address] ) 500 mg 15:01: mouth 2 Hospit a tablet 27 (two) l times a day with meals. ibuprofen Yes 200mg Q6H Take 200 Met [facility] (ADVIL,MOTR 6-[address] IN) 200 MG 15:01: mouth Hospit a tablet 27 every 6 l (six) hours as needed for mild pain. acetaminoph Yes 1{tbl} Q4H Take 1 Me thodi en-codeine 6-[address] (TYLENOL 15:01: mouth Hospita WITH 27 every 4 l CODEINE #3) (four) 300-30 mg hours as per tablet needed for moderate pain. ascorbic Yes 1000mg QD Take 1,000 M ethodi acid, 6-[address] vitamin C, 14:53: mouth Hospit a (vitamin C) 53 daily. l 1000 MG tablet EDARBYCLOR Yes [facility] 40-25 mg 6-17 st tablet 00:00: Hospita 00 l LANTUS Yes [facility] SOLOSTAR 6-13 st U-100 00:00: Hospita INSULIN 100 00 l unit/mL injection (pen) meloxicam Yes [facility] (MOBIC) 7.5 5-08 st mg tablet 00:00: Hospita 00 l LYRICA 150 Yes [facility] mg capsule 4-23 st 00:00: Hospita 00 l levothyroxi Yes [facility] i ne 4-07 st (SYNTHROID, 00:00: Hospit a LEVOXYL) 00 l 125 mcg tablet omeprazole Yes [facility] (PriLOSEC) 4-07 st 20 MG 00:00: Hospita capsule 00 l simvastatin Yes Method i (ZOCOR) 20 4-07 st MG tablet 00:00: Hospita 00 l traMADol Yes [facility] (ULTRAM) 50 3-22 st mg tablet 00:00: Hospita 00 l CONTOUR Yes [facility] NEXT TEST 3-13 st STRIPS 00:00: Hospita strip test 00 l strips Vital Signs Vital Name Observation Time Observation Value Comments Source Systolic blood 2022-07-24 18:16:00 128 mm[Hg] [facility] Diastolic blood 2022-07-24 18:16:00 84 [facility]Hg[facility] 2022-07-24 18:16:00 69 /min [facility] Respiratory rate 2022-07-24 18:16:00 19 /min [facility] 2022-07-24 18:16:00 154.9 cm [facility] Body weight 2022-07-24 18:16:00 91.944 kg [facility] BMI 2022-07-24 18:16:00 38.30 kg/m2 [facility] Oxygen saturation in 2022-07-24 18:16:00 96 /min [facility] Arterial blood by [facility] Pulse oximetry Branch Systolic blood 2022-05-11 21:15:00 141 mm[Hg] [facility] Diastolic blood 2022-05-11 21:15:00 95 mm[Hg] [facility] Heart rate 2022-05-11 21:15:00 78 /min [facility] Body temperature 2022-05-11 21:15:00 36.39 Maribel [facility] 2022-05-11 21:15:00 16 /min [facility] O[facility] in 2022-05-11 21:15:00 97 /min [facility] Arterial blood by [facility] Pulse oximetry [place] Body height 2022-05-09 18:00:00 154.9 cm [facility] Body weight 2022-05-09 18:00:00 99.338 kg [facility] BMI 2022-05-09 18:00:00 41.38 kg/m2 [facility] Systolic (mm Hg) 2017-11-29 19:09:00 Gerard rial [place] Diastolic (mm Hg) 2017-11-29 19:09:00 Mem [facility] [place] Respitory Rate 2017-11-29 19:09:00 [facility] [place] Systolic (mm Hg) 2017-11-29 18:10:00 Gerard rial [place] Diastolic (mm Hg) 2017-11-29 18:10:00 Mem [facility] [place] Respitory Rate 2017-11-29 18:10:00 [facility] Heart Rate 2017-11-29 18:10:00 [facility] [place] Respitory Rate 2017-11-29 18:00:00 [facility] Heart Rate 2017-11-29 18:00:00 [facility] [place] Systolic (mm Hg) 2017-11-29 18:00:00 Gerard [facility] [place] Diastolic (mm Hg) 2017-11-29 18:00:00 [facility] [place] Heart Rate 2017-11-29 17:50:00 [facility] Temperature Oral (F) 2017-11-29 17:30:00 36.8 Mar[facility] Temperature Oral (F) 2017-11-29 12:08:00 36.7 Maribel [facility] Height 2017-11-29 12:08:00 157 cm [facility] Height 2017-11-23 14:11:00 157 cm [facility] Procedures Procedure Date / Time Performing Clinician Source Performed CONSENT/REFUSAL FOR 2022-07-24 17:56:22 Doctor Unassigned, No [facility] DIAGNOSIS AND TREATMENT Name [facility] REFERRAL- 2022-06-02 05:01:00 Doctor Unassigned, No [facility] REQUEST/RESPONSE Name [facility] POCT GLUCOSE (AUTOMATED) 2022-05-11 21:52:00 [facility] POCT GLUCOSE (AUTOMATED) 2022-05-11 17:34:00 [facility] TRANSTHORACIC ECHO (TTE) 2022-05-11 15:10:00 Kiko Villanueva [facility] COMPLETE W/ CONTRAST [facility] POCT GLUCOSE (AUTOMATED) 2022-05-11 13:21:00 [facility] POCT GLUCOSE (AUTOMATED) 2022-05-11 02:06:00 Mj [facility] POCT GLUCOSE (AUTOMATED) 2022-05-11 00:26:00 Mj [facility] POCT GLUCOSE (AUTOMATED) 2022-05-10 22:53:00 Mj [facility] POCT GLUCOSE (AUTOMATED) 2022-05-10 17:29:00 Saima Alvarado [facility] MR STROKE BRAIN WO 2022-05-10 16:01:47 Jigna Villanueva [facility] POCT GLUCOSE (AUTOMATED) 2022-05-10 13:09:00 Saima Alvarado [facility] MRSA / MSSA SCREEN BY 2022-05-10 09:18:00 Jigna Villanueva [facility] PCR, NARES Medical Branch MAGNESIUM 2022-05-10 09:15:00 Jigna Villanueva [facility] BASIC METABOLIC PANEL 2022-05-10 09:15:00 Jigna Villanueva of [place] (NA, K, CL, CO2, Medical Branch GLUCOSE, BUN, CREATININE, CA) CBC WITH DIFF 2022-05-10 09:15:00 Korin Grijalva [facility] PROTHROMBIN TIME / INR 2022-05-10 09:15:00 Korin Grijalva [facility] POCT GLUCOSE (AUTOMATED) 2022-05-10 01:15:00 Saima Alvarado [facility] URINALYSIS 2022-05-09 17:58:[address] [facility] [address] STROKE ANGIOGRAM HEAD 2022-05-09 17:23:42 Deion [facility] CT STROKE ANGIOGRAM NECK 2022-05-09 17:23:42 Deion [facility] TROPONIN I 2022-05-09 17:19:00 De[facility] THYROID STIMULATING 2022-05-09 17:19:00 Korin Grijalva [facility] HORMONE [facility] BASIC METABOLIC PANEL 2022-05-09 17:19:00 Raul Albarran [facility] (NA, K, CL, CO2, Medical Branch GLUCOSE, BUN, CREATININE, CA) LIPID PANEL 2022-05-09 17:19:00 Korin Grijalva [place] [facility] ([id number])(TOTAL Medical Branch CHOLESTEROL, TRIGLYCERIDES, HDL) CBC WITHOUT DIFF 2022-05-09 17:19:00 Deion [facility] GLYCOSYLATED HEMOGLOBIN 2022-05-09 17:19:00 [facility] PROTHROMBIN TIME / INR 2022-05-09 17:19:00 Deion Raul [facility] ACTIVATED PARTIAL 2022-05-09 17:19:00 Deion [facility] THRMPLAS UGO [facility] CT STROKE HEAD WO 2022-05-09 17:15:40 Deion [facility] CONTRAST [facility] ADM - MISC 2022-05-09 05:01:00 Doctor Unassigned, No [facility] ARTHROSCOPY SHOULDER FOR 2017-11-29 14:57:00 Deanna Noland EXCISION OF DISTAL CLAVICLE 49250 (Right)<sup>1</sup> ARTHROSCOPY SHOULDER 2017-11-29 14:57:00 Shirley Noland ROTATOR CUFF REPAIR 32437 (Right)<sup>2</sup> ARTHROSCOPY SHOULDER 2017-11-29 14:57:00 Shirley Noland W/BICEPS TENDONESIS 56775 (Right)<sup>3</sup> ARTHROSCOPY SHOULDER 2017-11-29 14:57:00 Shirley Noland W/SUBACROMIAL DECOMPRESSION/ACROMIOPLA STY 60472 (Right)<sup>4</sup> UNLISTED 2017-11-29 14:57:00 [facility] PROCEDURE-SHOULDER 70825 (Right)<sup>5</sup> Plan of Care Planned Activity Planned Date Details Comments Source Future Scheduled 2022-09-12 Screening for [facility] Test 09:25:51 malignant neoplasm of colon (procedure) [code = 994920191] Future Scheduled 2022-09-12 Screening for [facility] Test 09:25:51 malignant neoplasm of colon (procedure) [code = 400990936] Future Scheduled 2022-09-12 Screening for [facility] Test 09:25:51 malignant neoplasm of colon (procedure) [code = 511597574] Future Scheduled 2022-09-12 COVID-19 VACCINE (#1) [facility] Test 09:25:51 [code = COVID-19 VACCINE (#1)] Future Scheduled 2022-09-12 65+ PNEUMOCOCCAL [facility] Test 09:25:51 VACCINE (1 - PCV) [code = 65+ PNEUMOCOCCAL VACCINE (1 - PCV)] Future Scheduled 2022-09-12 Hepatitis C screening [facility] Test 09:25:51 (procedure) [code = 652560443] Future Scheduled 2022-09-12 BREAST CANCER [facility] Test 09:25:51 SCREENING [code = BREAST CANCER SCREENING] Future Scheduled 2022-09-12 Screening for [facility] Test 09:25:51 malignant neoplasm of colon (procedure) [code = 442096598] Future Scheduled 2022-09-12 Screening for [facility] Test 09:25:51 malignant neoplasm of colon (procedure) [code = 980122387] Future Scheduled 2022-09-12 SHINGLES [facility]ACCINES ([facility] 09:25:51 of 2) [code = SHINGLES VACCINES (1 of 2)] Future Scheduled 2022-09-12 [facility]ACCINE [facility] 09:25:51 [code = INFLUENZA VACCINE] Encounters Start End Encounter Admission Attending Care Care Encounter Source Date/Time Date/Time Type Type Clinicians Facility Department ID 2022-09-[address] [facility] [id number] Dc moria 13:08:52 galo Noland 2022-07-[address] [facility] [id number] Me moria 13:09:27 galo Noland 2022-09-18 2022-09-18 Outpatient GC_GCBZW_Ka PRIV PRIV [id number] [facility] 00:00:00 00:00:00 diyala_S [id number] Medic al 2022-09-16 2022-09-16 Outpatient GC_GCBZW_Ka PRIV PRIV [id number] [facility] 00:00:00 00:00:00 diyala_S [id number] Medic al 2022-09-10 2022-09-10 Outpatient GC_GCBZW_Ka PRIV PRIV [id number] [facility] 00:00:00 00:00:00 diyala_S [id number] Medic al 2022-08-14 2022-08-14 Outpatient [facility] [id number] [place] 08:09:25 08:09:25 [id number] [place] 2022-07-31 2022-07-31 Outpatient [facility] [id number] Chad 08:27:59 08:27:59 [id number] [place] 2022-07-24 2022-07-24 Outpatient R BABAR [facility] [id number] Univers 13:00:00 13:33:36 [facility] 2022-07-24 2022-07-24 Office Babar [facility] [id number] [facility] 13:00:00 13:33:36 Visit Rema STANTON 350.1.13.10 Samir 4.2.7.2.686 Molly JOINER [id number] Dc dical NAL 059 [facility] 2022-07-24 2022-07-24 Orders Doctor RYAN [id number] Univers 00:00:00 00:00:00 Only Unassigned, DESTINEE 350.1.13.10 ity of [place] [facility] 4.2.7.2.686 Malachi as [id number] [facility] [address] [place] 2022-06-25 2022-06-25 Outpatient [facility] [id number] [place] 08:37:05 08:37:05 [id number] [place] 2022-06-02 2022-06-02 Orders Doctor RYAN [id number] Univers 00:00:00 00:00:00 Only Unassigned, DESTINEE 350.1.13.10 ity of [place] [facility] 4.2.7.2.686 Malachi as [id number] [facility] [address] [place] 2022-06-01 2022-06-01 Outpatient [facility] [id number] [place] 15:07:33 15:07:33 [id number] [place] 2022-05-25 2022-05-25 Outpatient [facility] [id number] Chad 10:51:07 10:51:07 [id number] [place] 2022-05-12 2022-05-12 Transition MARY Moreira [id number] Univers 00:00:00 00:00:00 of Care Horacio Jayy CARDOSO 350.1.13.10 [place] [id number] [facility] [address] 2022-05-09 2022-05-11 Outpatient X [facility] [id number] Univers 12:09:00 18:00:00 [facility] 2022-05-09 2022-05-11 Hospital Raul Albarran 1.2.840.1 [id number] Univers 12:09:00 18:00:00 Encounter Saima Alvarado 350.1.13.10 ity of [place] Berry [facility] 4.2.7.2.686 [place] [id number] [facility] [address] 2022-04-28 2022-04-28 Outpatient SFA SFA [id number] Chad 11:42:32 11:42:32 [id number] F [place] 2022-04-08 2022-04-08 Outpatient SFA SFA [id number] Chad 09:31:43 09:31:43 [id number] F [place] 2022-03-24 2022-03-24 Outpatient SFA SFA [id number] Chad 11:35:19 11:35:19 [id number] F [place] 2022-03-11 2022-03-11 Outpatient SFA SFA [id number] Chad 09:12:21 09:12:21 [id number] F [place] 2022-01-05 2022-01-05 Outpatient SFA SFA [id number] Chad 16:31:33 16:31:33 [id number] F [place] 2021-11-28 2021-11-28 Outpatient SFA SFA [id number] [place] 08:06:34 08:06:34 F [place] 2021-11-21 2021-11-21 Outpatient SFA SFA [id number]- Chad 10:10:00 10:10:00 [id number] F [place] 2021-11-14 2021-11-14 Outpatient SFA SFA [id number] [place] 10:06:27 10:06:27 Malick [place] 2021-11-07 2021-11-07 Outpatient SFA SFA [id number] [place] 11:25:06 11:25:06 [id number] [place] 2021-05-22 2021-05-22 [facility] [id number] [place] 00:00:00 00:00:[address] 2017-11-29 2017-11-29 Outpatient nullFlavo [facility] [id number] [place] 11:20:36 19:09:00 galo [facility] 2017-11-29 2017-11-29 Outpatient nullFlavo [facility] [id number] Mem[place] 11:20:36 19:09:00 galo [facility] 2017-11-29 2017-11-29 Outpatient Mishra, [id number] 06:20:36 14:09:00 Roberth Willis 2017-11-29 2017-11-[address] [facility] [id number] [place] 06:20:36 14:09:00 galo Noland Results Test Description Test Time Test Comments Results Result Comments Source FOLATE, RBC 2022-08-17 13:36:52 Test Item Value Reference Range Interpretation Comme nts HEMATOCRIT (test code = 1004) 39.4 % 34.0-45.0 FOLATE, RBC (test code = 2690) 1165 NG/ML 499-1504 INTERPRETIVE RANGES DEFICIENCY . . . . . . . . . . . . . . . NG/ML < =150 POSSIBLE DEFICIENCY. . . . . . . . . . . NG/ML 151-498 S UFFICIENT . . . . . . . . . . . . . . . NG/ML 499-1504 EXCESS . . . . . . . . . . . . . . . . . NG/ML >1504 UNLESS OTHERWIS E INDICATED, ALL TESTING PERFORM ED AT [facility] [employer] [address] [place] [address] LABORATORY DIRE CTOR: ELIO TURNER M.D. C OCTAVIO NUMBER [id number] [place]. [id number] CULTURE, [id number] 11:38:47SPECIMEN NUMBER: [id number] CULTURE, URINE SPECIMEN NUMBER: [id number] SPECIMEN COMMENT: URINE SOURCE:URINE REPORT STATUS: FINAL FINAL REPORT: 08/16/2022 50-100,000 CFU/ML UROGENITAL RON PRESENT NO COM MON PATHOGENS UNLESS OTHERWISE INDICATED, ALL TESTING PERFORMED AT [facility] [employer] [address] [place] [address] TRANSPORT RN: ELIO TURNER M.D. CLIA NUMBER [id number] [place]. [id number] VITAMIN [id number] 06:14:21 Test Item Value Reference Range Interpretation Comments VITAMIN B-12 (test code = 2840) 767 PG/ML 200-950 VITAMIN D, 25 [id number] 05:36:47 Test Item Value Reference Range Interpretation Comments VITAMIN D, 25 54 NG/ML SEE BELOW EFFECTIVE 02/16/2022, [place] (test code PLEASE NOTE NE W METHODOLOGY = 4958) IS ELECTROCH EMILUMINESCENCE BINDING ASSAY. NOTE: 25-HYDROXYVITAM IN D ASSAY INCLUDES 25-HYD ROXYVITAMIN D2 AND D3. I NTERPRETIVE RANGES PED IATRIC (<17 YEARS) . . . . . . . . . . . NG/ML 20-100ADU LT: INSUFFICIENT . . . . . . . . . . . . . . NG/ML <20 SUBO PTIMAL . . . . . . . . . . . . . . . NG/ML 20-29 OPTIMAL . . . . . . . . . . . . . . . . . NG/ML 30-100 LIPID [id number] 04:21:21 Test Item Value Reference Range Interpretation Comments CHOLESTEROL (test 195 MG/DL <200 code = 2210) TRIGLYCERIDES (test 106 MG/DL <150 code = 2232) HDL CHOLESTEROL (test 46 MG/DL >39 code = 2220) CALC LDL CHOL (test 128 MG/DL <100 H NOTE: C ALCULATED LDL code = 2237) IS BASED ON NICOLAS-GONZALEZ METHOD WHICHINCLUDES ADJUSTABLE TRIGLYCERIDE:VL DL CHOLESTEROL RAT IO.THIS FACTOR VARIES B Y MEASURED TRIGLY CERIDE AND NON-HDLCHOL ESTEROL CONCENTRATIONS WITH INCREASED CALCU LATED LDL SEENIN HIGH ER TRIGLYCERIDE OR LOWER NON-HDL SPECIME NS. FOR MOREINFORMATION , SEE CLIENT ANNOUNCE MENT AT [email or web address] RISK RATIO LDL/HDL 2.78 RATIO <3.22 (test code = 2238) HEMOGLOBIN [id number] 04:17:54 Test Item Value Reference Range Interpretation Comments HEMOGLOBIN A1c (test 9.4 % 4.2-5.6 H AMERIC AN DIABETES code = 44262) ASSOCIATION IDELINES FOR HGB A1C: PREDIABETES/INC REASED RISK . . . . . . . 5.7 -6.4% DIAGNOSIS OF DI ABETES . . . . . . . . . >=6 .5% WITH CONFIRMATION OR APPROPRIATE SYMPTOMS NOTE: ASSAY MAY BE AFFECTED BY HEMOGLOBINOPATH IES (SICKLE CELL ANEMIA, S- C DISEASE, OTHERS) OR KJ FICIALLY LOWERED BY DECR EASED RED CELL SURVIVAL ( HEMOLYTIC ANEMIAS, BLOOD LOSS, ETC.). CONSIDER ALTERN ATE TESTING OR LABORATORY C ONSULTATION. CBC W/AUTO DIFF WITH [id number] 03:26:08 Test Item Value Reference Range Interpretation Comments WBC (test code = 9.3 K/UL 3.5-11.0 1001) RBC (test code = 4.60 M/UL 3.80-5.40 1002) HEMOGLOBIN (test code 13.1 G/DL 11.5-15.5 = 1003) HEMATOCRIT (test code 39.4 % 34.0-45.0 = 1004) MCV (test code = 85.7 fL 80.0-99.0 1005) MCH (test code = 28.5 PG 25.0-33.0 1006) MCHC (test code = 33.2 G/DL 31.0-36.0 1007) RDW (test code = 12.6 % 11.5-15.0 1038) NEUTROPHILS (test 54.5 % code = 1008) LYMPHOCYTES (test 31.4 % code = 1010) MONOCYTES (test code 8.8 % = 1011) EOSINOPHILS (test 4.1 % code = 1012) BASOPHILS (test code 0.9 % = 1013) IMMATURE GRANULOCYTES 0.3 % (test code = 1036) NUCLEATED RBCS (test 0.0 /100 WBC'S See_Comment [Aut omated code = 1065) message] The sy stem which generated this result transmitted reference range : 0.0. The refere nce range was not u sed to interpret th is result as normal/abnormal . PLATELET COUNT (test 292 K/UL 130-400 code = 1015) ABSOLUTE NEUTROPHILS 5.08 K/UL 1.50-7.50 (test code = 1066) ABSOLUTE LYMPHOCYTES 2.93 K/UL 1.00-4.00 (test code = 1067) ABSOLUTE MONOCYTES 0.82 K/UL 0.20-1.00 (test code = 1068) ABSOLUTE EOSINOPHILS 0.38 K/UL 0.00-0.50 (test code = 1040) ABSOLUTE BASOPHILS 0.08 K/UL 0.00-0.20 (test code = 1069) ABS IMMATURE 0.03 K/UL 0.00-0.10 GRANULOCYTES (test code = 1020) ABS NUCLEATED RBCS 0.00 K/UL 0.00-0.11 (test code = 28810) COMPREHENSIVE METABOLIC [id number] 06:54:12 Test Item Value Reference Range Interpretation Comments GLUCOSE (test code = 218 MG/DL 70-99 H 2216) BUN (test code = 22 MG/DL 8-23 2207) CREATININE (test 0.99 MG/DL 0.60-1.30 code = 221) eGFR (2020 CKD-EPI) 62 >60 (test code = 92640) ML/MIN/1.73 CALC BUN/CREAT (test 22 RATIO 6-28 code = 2235) SODIUM (test code = 141 MEQ/L 637-862 7738) POTASSIUM (test code 4.3 MEQ/L 3.5-5.4 = 2227) CHLORIDE (test code 99 MEQ/L 95-107 = 2214) CARBON DIOXIDE (test 28 MEQ/L 19-31 code = 2206) CALCIUM (test code = 9.7 MG/DL 8.5-10.5 2208) PROTEIN, TOTAL (test 6.6 G/DL 6.1-8.3 code = 2228) ALBUMIN (test code = 4.2 G/DL 3.5-5.2 2200) CALC GLOBULIN (test 2.4 G/DL 1.9-3.7 code = 2239) CALC A/G RATIO (test 1.8 RATIO 1.0-2.6 code = 223) BILIRUBIN, TOTAL 0.5 MG/DL See_Comment [Automated message] (test code = 2206) The syste m which generated this result transmitted ref erence range: <=1.2. T he reference range was not used to int erpret this result as normal/abnormal . ALKALINE PHOSPHATASE 102 U/L 40-142 (test code = 2203) AST (test code = 17 U/L 9-40 2217) ALT (test code = 13 U/L 5-40 UNLESS OTH ERWISE 2218) INDICATED, ALL TESTING PERFORM ED AT [facility]ICAL [facility] [employer] [address] [place], [place] [id number] [place] [address] DIRECTOR: Rajan NOLEN OCTAVIO NUMBER [id number] CAP ACCREDITATION N O. [id number] TSH, THIRD [id number] 07:16:27 Test Item Value Reference Range Interpretation Comments TSH, THIRD GENERATION (test code 3.560 UIU/ML 0.400-4.100 = 2821) ALBUMIN/CREATININE RATIO, URINE, [id number] 04:16:19 Test Item Value Reference Range Interpretation Comments CREATININE, URINE, 91.5 MG/DL NOT ESTAB CONC. (test code = 2072) ALBUMIN, URINE, <0.2 MG/DL NOT ESTAB RANDOM (test code = 04881) CALC <2 MG/G <30 Note: Albumin/ Creatinine ALBUMIN/CREAT, RND ratio ref erence interval (test code = reflects ADA an d NKF 02971) guidelines. [facility] has important patho logy staff changes effecti ve 04/08/2022. New pathology staff will provide uninter rupted, excellent patie nt care and clinical consultation. S ee URL: [email or web address] UNLESS O THERWISE INDICATED, ALL TESTING PERFORMED AT [facility] [employer] [employer]. [address] [place] [id number] [place] [address] DIRECTOR: Rajan NOLEN OCTAVIO NUMBER [id number] CAP ACCREDITATION N O. [id number] POCT GLUCOSE (AUTOMATED)2022-05-11 22:00:58 Test Item Value Reference Range Interpretation Comments POCT GLU (test code = 0573912192) 202 mg/dL 70-110 H Lab Interpretation (test code = Abnormal 34303-6) [facility] GLUCOSE (AUTOMATED)2022-05-11 17:39:26 Test Item Value Reference Range Interpretation Comments POCT GLU (test code = 5824488691) 314 mg/dL 70-110 H Lab Interpretation (test code = Abnormal 92609-7) [facility] GLUCOSE (AUTOMATED)2022-05-11 13:24:24 Test Item Value Reference Range Interpretation Comments POCT GLU (test code = 0532208453) 225 mg/dL 70-110 H Lab Interpretation (test code = Abnormal 14660-7) [facility] GLUCOSE (AUTOMATED)2022-05-11 02:12:28 Test Item Value Reference Range Interpretation Comments POCT GLU (test code = 7601164329) 271 mg/dL 70-110 H Lab Interpretation (test code = Abnormal 07694-3) [facility] GLUCOSE (AUTOMATED)2022-05-11 00:28:01 Test Item Value Reference Range Interpretation Comments POCT GLU (test code = 5399151494) 300 mg/dL 70-110 H Lab Interpretation (test code = Abnormal 68649-0) [facility] GLUCOSE (AUTOMATED)2022-05-10 22:55:00 Test Item Value Reference Range Interpretation Comments POCT GLU (test code = 1865376835) 225 mg/dL 70-110 H Lab Interpretation (test code = Abnormal 12849-2) [facility] GLUCOSE (AUTOMATED)2022-05-10 17:31:04 Test Item Value Reference Range Interpretation Comments POCT GLU (test code = 6807182463) 204 mg/dL 70-110 H Lab Interpretation (test code = Abnormal 06745-1) [facility] GLUCOSE (AUTOMATED)2022-05-10 13:10:19 Test Item Value Reference Range Interpretation Comments POCT GLU (test code = 9442796226) 118 mg/dL 70-110 H Lab Interpretation (test code = Abnormal 18682-6) [facility]abolic Panel (Na, K, Cl, CO2, Glucose, BUN, Creatinine, Ca)2022-05-10 10:14:17 Test Item Value Reference Range Interpretation Comments NA (test code = 139 mmol/L 135-145 3249701679) K (test code = 4.0 mmol/L 3.5-5.0 9536327155) CL (test code = 105 mmol/L 98-108 1096866664) CO2 TOTAL (test code = 30 mmol/L 23-31 4788415332) AGAP (test code = 4 2-16 4100842442) BUN (test code = 25 mg/dL 7-23 H 6762568363) GLUCOSE (test code = 93 mg/dL 70-110 9839112484) CREATININE (test code = 0.90 mg/dL 0.50-1.04 0475656986) CALCIUM (test code = 8.3 mg/dL 8.6-10.6 L 1841635217) eGFR (test code = 62.5 mL/min/1.73m2 8118980220) HASMUKH (test code = HASMUKH) Association of Glomerular Filtration Rate (GFR) and Staging of Kidney Disease* + --+ --+ ------+| GFR (mL/min/1.73 m2) ?| With Kidney Damage ?| ?Without Kidney Damage+ --------+ --------+ +| ?>90 ?| ?Stage one ?| ? Normal ?+ ---+ ---+ -------+| ?60-89 ?| ?Stage two ?| ? Decreased GFR ? + --+ --+ ------+| ?30-59 ?| ?Stage three ?| ? Stage three ? + --+ --+ ------+| ?15-29 ?| ?Stage four ? | ? Stage four ?+ ---+ ---+ -------+| ?<15 (or dialysis) ? ?| ?Stage five ? | ? Stage five ?+ ---+ ---+ -------+ *Each stage assumes the associated GFR level has been in effect for at least three months. ?Stages 1 to 5, with or without kidney disease, indicate chronic kidney disease. Notes: Determination of stages one and two (with eGFR >59mL/min/1.73 m2) requires estimation of kidney damage for at least three months as defined by structural or functional abnormalities of the kidney, manifested by either:Pathological abnormalities or Markers of kidney damage (including abnormalities in the composition of the blood or urine or abnormalities in imaging tests). Lab Interpretation Abnormal (test code = 02917-5) [facility] [id number] 10:14:17 Test Item Value Reference Range Interpretation Comments MAGNESIUM (test code = 5960317716) 1.9 mg/dL 1.7-2.4 Lab Interpretation (test code = Normal 38158-2) [facility] Time / [id number] 09:54:37 Test Item Value Reference Range Interpretation Comments PROTIME PATIENT (test 13.2 See_Comment H [Auto mated message] code = 5964-2) The system [employer] generated this result transmitted ref erence range: 10.1 - 1 2.6 Seconds. The reference range was not used to int erpret this result as normal/abnormal . INR (test code = 6301-6) 1.2 Nor mal INR <1.1; Warfarin Therap eutic range 2.0 to 3. 0 or 2.5 to 3.5, dep ending upon the indica tions. Lab Interpretation (test Abnormal code = 62361-8) [facility] with [id number] 09:49:14 Test Item Value Reference Range Interpretation Comments WBC (test code = 9.67 See_Comment [Automated message] 6490-2) The system [employer] generated this result transmitted ref erence range: 4.30 - 1 1.10 10*3/?L. The re ference range was not u sed to interpret this result as normal/abnor mal. RBC (test code = 4.20 See_Comment [Automated message] 789-8) The system [employer] generated this result transmitted ref erence range: 3.93 - 5 .25 10*6/?L. The re ference range was not u sed to interpret this result as normal/abnor mal. HGB (test code = 11.9 g/dL 11.6-15.0 718-7) HCT (test code = 36.8 % 35.7-45.2 4544-3) MCV (test code = 87.6 fL 80.6-95.5 787-2) MCH (test code = 28.3 pg 25.9-32.8 785-6) MCHC (test code = 32.3 g/dL 31.6-35.1 786-4) RDW-SD (test code 41.6 fL 39.0-49.9 = 92394-4) RDW-CV (test code 13.2 % 12.0-15.5 = 788-0) PLT (test code = 248 See_Comment [Automated message] 777-3) The system [employer] generated this result transmitted ref erence range: 166 - 35 8 10*3/?L. The re ference range was not u sed to interpret this result as normal/abnor mal. MPV (test code = 10.5 fL 9.5-12.9 68526-9) NRBC/100 WBC (test 0.0 See_Comment [Automat ed message] code = 4642925928) The [employer] [facility] which generated this result transmitted ref erence range: 0.0 - 10 .0 /100 WBCs. The refer ence range was not u sed to interpret this result as normal/abnor mal. NRBC x10^3 (test See_Comment [Automated message] code = 9324952003) The syste m which generated this result transmitted ref erence range: 10*3/?L. The reference range was not used to interpr et this result as normal/abnormal . GRAN MAT (NEUT) % 54.6 % (test code = 770-8) IMM GRAN % (test 0.30 % code = 0137779434) LYMPH % (test code 33.4 % = 736-9) MONO % (test code 7.9 % = 5905-5) EOS % (test code = 3.2 % 713-8) BASO % (test code 0.6 % = 706-2) GRAN MAT 5.28 10*3/uL 1.88-7.09 x10^3(ANC) (test code = 0153708213) IMM GRAN x10^3 0.03 10*3/uL 0.00-0.06 (test code = [id number]) LYMPH x10^3 (test 3.23 10*3/uL 1.32-3.29 code = 731-0) MONO x10^3 (test 0.76 10*3/uL 0.33-0.92 code = 742-7) EOS x10^3 (test 0.31 10*3/uL 0.03-0.39 code = 711-2) BASO x10^3 (test 0.06 10*3/uL 0.01-0.07 code = 704-7) [facility] 01:16:40 Test Item Value Reference Range Interpretation Comments POCT GLU (test code = [id number]) 275 mg/dL 70-110 H Lab Interpretation (test code = Abnormal 71463-7) [facility] [id number] 03:10:32 Test Item Value Reference Range Interpretation Comments HEMOGLOBIN A1c (test 7.3 % 4.2-5.6 H [employer] AN DIABETES code = 09773) ASSOCIATION IDELINES FOR HGB A1C: PREDIABETES/INC REASED RISK . . . . . . . 5.7 -6.4% DIAGNOSIS OF DI ABETES . . . . . . . . . >=6 .5% WITH CONFIRMATION OR APPROPRIATE SYMPTOMS NOTE: ASSAY MAY BE AFFECTED BY HEMOGLOBINOPATH IES (SICKLE CELL ANEMIA, S- C DISEASE, OTHERS) OR KJ FICIALLY LOWERED BY DECR EASED RED CELL SURVIVAL ( HEMOLYTIC ANEMIAS, BLOOD LOSS, ETC.). CONSIDER ALTERN ATE TESTING OR LABORATORY C ONSULTATION. [facility] has imp ortant pathology staff changes effective 04/08. New pathology s taff will provide uninter rupted, excellent patie nt care and clinical consul tation. See URL: [email or web address]. UNLESS OTHE RWISE INDICATED, ALL TESTING PERFORMED AT [facility] 2[facility]out [facility]. [address] [place] [address], [place] [address] LABORATOR Y DIRECTOR: HARRY INMAN M.D. CLIA NUMBER [id number] CAP ACCREDITATION N O. [id number] VITAMIN D, [id number] 03:47:11 Test Item Value Reference Range Interpretation Comments VITAMIN D, 25 59 NG/ML SEE BELOW EFFECTIVE 02/16/2022, [place] (test code PLEASE NOTE NE W METHODOLOGY = 4958) IS ELECTROCH EMILUMINESCENCE BINDING ASSAY. NOTE: 25-HYDROXYVITAM IN D ASSAY INCLUDES 25-HYD ROXYVITAMIN D2 AND D3. I NTERPRETIVE RANGES PED IATRIC (<17 YEARS) . . . . . . . . . . . NG/ML 20-100ADU LT: INSUFFICIENT . . . . . . . . . . . . . . NG/ML <20 SUBOP TIMAL . . . . . . . . . . . . . . . NG/ML 20-29 OPTIMAL . . . . . . . . . . . . . . . . . NG/ML 30-100 [facility] has important p athology staff changes effecti ve 04/08/2022. New patholo gy staff will provide uninter rupted, excellent patie nt care and clinical consul tation. See URL: [email or web address]. UNLESS OTHERWIS E INDICATED, ALL TESTING PERFORM ED AT [facility] PATHOLOGY [place]. [address] [place] [address] CLIA: [id number], CAP : [id number] 00:37:53 Test Item Value Reference Range Interpretation Comments RPR RESULT (test code = NON-REACTIVE NON-REACTIVE 3501) RPR TITER (test code = 3500) NOT INDIC. TITER NOT INDIC. TSH, THIRD [id number] 04:41:28 Test Item Value Reference Range Interpretation Comments TSH, THIRD GENERATION (test code 0.313 UIU/ML 0.400-4.100 L = 2821) FOLIC [id number] 04:41:28 Test Item Value Reference Range Interpretation Comments FOLIC ACID (test 19.2 UG/L SEE BELOW INTE RPRETIVE code = 2695) RANGES DE FICIENCY . . . . . . . . . . . . . . . UG/L <4.0 POS SIBLE DEFICIENCY. . . . . . . . . . . UG/L 4.0- 5.9 SUFFICIENT . . . . . . . . . . . . . . . UG/L >=6.0 VITAMIN [id number] 04:41:28 Test Item Value Reference Range Interpretation Comments VITAMIN B-12 (test 946 PG/ML 200-950 CPL has important code = 6370) pathology staff changes effective 04/08. New patholo gy staff will provide uninterrupted, excellent patie nt care and clinical consultation. S ee URL: [email or web address]. UNLESS OTHERWISE INDIC ATED, ALL TESTING [facility], [address] CLIA: [id number], CAP: [id number] HIV 1/2 4TH GEN, RFLX [id number] 03:31:10 Test Item Value Reference Range Interpretation Comments HIV 1/2 4TH GEN, RFLX CONF (test NON-REACTIVE NON-REACTIVE code = 3514) HEPATITIS PANEL, [id number] 03:31:10 Test Item Value Reference Range Interpretation Comments HEPATITIS A IgM (test NON-REACTIVE NON-REACTIVE code = 21695) HEPATITIS B CORE IgM NON-REACTIVE NON-REACTIVE (test code = 4644) HEPATITIS B SURF AG NON-REACTIVE NON-REACTIVE (test code = 2739) HEPATITIS C ANTIBODY NON-REACTIVE NON-REACTIVE (test code = 4675) INTERPRETATION (NOTE) Hepatitis A HEPATITIS A: (test code sero logy shows no = 7966) evidence of acu te hepatitis A. INTERPRETATION (NOTE) Hepatitis B HEPATITIS B: (test code sero logy shows no = 84192) evidence of acu te hepatitis B and no indication of exposure to hepatitis B vir us in the previous daphne eight months. INTERPRETATION (NOTE) Hepatitis C HEPATITIS C: (test code sero logy shows no = 55626) evidence of exposure to hepatitisC viru s at this time. I t can take up to 12 months after exposure tothe hepatitis C vir us for antibodies to become detectab le in the blood in certain patient s. CBC W/AUTO DIFF WITH [id number] 01:55:24 Test Item Value Reference Range Interpretation Comments WBC (test code = 8.2 K/UL 3.5-11.0 1001) RBC (test code = 4.29 M/UL 3.80-5.40 1002) HEMOGLOBIN (test code 12.4 G/DL 11.5-15.5 = 1003) HEMATOCRIT (test code 36.7 % 34.0-45.0 = 1004) MCV (test code = 85.5 fL 80.0-99.0 1005) MCH (test code = 28.9 PG 25.0-33.0 1006) MCHC (test code = 33.8 G/DL 31.0-36.0 1007) RDW (test code = 12.4 % 11.5-15.0 1038) NEUTROPHILS (test 63.3 % code = 1008) LYMPHOCYTES (test 26.6 % code = 1010) MONOCYTES (test code 7.7 % = 1011) EOSINOPHILS (test 1.6 % code = 1012) BASOPHILS (test code 0.6 % = 1013) IMMATURE GRANULOCYTES 0.2 % (test code = 1036) NUCLEATED RBCS (test 0.0 /100 WBC'S See_Comment [Aut omated code = 1065) message] The sy stem which generated this result transmitted reference range : 0.0. The refere nce range was not u sed to interpret th is result as normal/abnormal . PLATELET COUNT (test 273 K/UL 130-400 code = 1015) ABSOLUTE NEUTROPHILS 5.20 K/UL 1.50-7.50 (test code = 1066) ABSOLUTE LYMPHOCYTES 2.18 K/UL 1.00-4.00 (test code = 1067) ABSOLUTE MONOCYTES 0.63 K/UL 0.20-1.00 (test code = 1068) ABSOLUTE EOSINOPHILS 0.13 K/UL 0.00-0.50 (test code = 1040) ABSOLUTE BASOPHILS 0.05 K/UL 0.00-0.20 (test code = 1069) ABS IMMATURE 0.02 K/UL 0.00-0.10 GRANULOCYTES (test code = 1020) ABS NUCLEATED RBCS 0.00 K/UL 0.00-0.11 (test code = 88574) TSH, THIRD [id number] 04:59:34 Test Item Value Reference Range Interpretation Comments TSH, THIRD 1.590 UIU/ML 0.400-4.100 UNLESS OTHERWI SE GENERATION (test INDICATED, ALL TESTING code = 2821) PERFORMED [facility], [place]. [address] [place] [address] [facility] DIRECTOR: Rajan ARROYOIA NUMBER [id number] CAP ACCREDITATION N O. [id number] HEMOGLOBIN [id number] 02:01:14 Test Item Value Reference Range Interpretation Comments HEMOGLOBIN A1c (test 6.6 % 4.2-5.6 H AMERIC AN DIABETES code = 53840) ASSOCIATION IDELINES FOR HGB A1C: PREDIABETES/INC REASED RISK . . . . . . . 5.7 -6.4% DIAGNOSIS OF DI ABETES . . . . . . . . . >=6 .5% WITH CONFIRMATION OR APPROPRIATE SYMPTOMS NOTE: ASSAY MAY BE AFFECTED BY HEMOGLOBINOPATH IES (SICKLE CELL ANEMIA, S- C DISEASE, OTHERS) OR KJ FICIALLY LOWERED BY DECR EASED RED CELL SURVIVAL ( HEMOLYTIC ANEMIAS, BLOOD LOSS, ETC.). CONSIDER ALTERN ATE TESTING OR LABORATORY C ONSULTATION. UNLESS OTHERWIS E INDICATED, ALL TESTING PER FORMED ATCLINICAL PATH OLOGY LABORATORIES, [place]. [address], [place] [address] LABORATORY DIRE CTOR: HARRY HERNANDEZ M.D. CLIA NUMBER [id number] [place]. [id number] CBC W/AUTO DIFF WITH [id number] 00:07:56 Test Item Value Reference Range Interpretation Comments WBC (test code = 7.9 K/UL 3.5-11.0 1001) RBC (test code = 4.46 M/UL 3.80-5.40 1002) HEMOGLOBIN (test code 12.7 G/DL 11.5-15.5 = 1003) HEMATOCRIT (test code 38.7 % 34.0-45.0 = 1004) MCV (test code = 86.8 fL 80.0-99.0 1005) MCH (test code = 28.5 PG 25.0-33.0 1006) MCHC (test code = 32.8 G/DL 31.0-36.0 1007) RDW (test code = 12.5 % 11.5-15.0 1038) NEUTROPHILS (test 52.9 % code = 1008) LYMPHOCYTES (test 35.4 % code = 1010) MONOCYTES (test code 7.4 % = 1011) EOSINOPHILS (test 3.4 % code = 1012) BASOPHILS (test code 0.6 % = 1013) IMMATURE GRANULOCYTES 0.3 % (test code = 1036) NUCLEATED RBCS (test 0.0 /100 WBC'S See_Comment [Aut omated code = 1065) message] The sy stem which generated this result transmitted reference range : 0.0. The refere nce range was not u sed to interpret th is result as normal/abnormal . PLATELET COUNT (test 286 K/UL 130-400 code = 1015) ABSOLUTE NEUTROPHILS 4.20 K/UL 1.50-7.50 (test code = 1066) ABSOLUTE LYMPHOCYTES 2.81 K/UL 1.00-4.00 (test code = 1067) ABSOLUTE MONOCYTES 0.59 K/UL 0.20-1.00 (test code = 1068) ABSOLUTE EOSINOPHILS 0.27 K/UL 0.00-0.50 (test code = 1040) ABSOLUTE BASOPHILS 0.05 K/UL 0.00-0.20 (test code = 1069) ABS IMMATURE 0.02 K/UL 0.00-0.10 GRANULOCYTES (test code = 1020) ABS NUCLEATED RBCS 0.00 K/UL 0.00-0.11 (test code = 90200) COMPREHENSIVE METABOLIC [id number] 21:24:46 Test Item Value Reference Range Interpretation Comments GLUCOSE (test code = 65 MG/DL 70-99 L 2216) BUN (test code = 23 MG/DL 8-2207) CREATININE (test 1.08 MG/DL 0.60-1.30 code = 2214) eGFR (2020 CKD-EPI) 57 ML/MIN/1.73 >60 L The N KF-ASN (test code = 38298) Taskforc e recommends use of Cystatin C to confirm eGFR inadults at ris k for CKD. [facility] offers eGFR with Cystatin C-Creatinineusi ng the 2020 CKD-EP I eGFR_creat-cyst at equation (order code 3057) toincreas e the accuracy of estimated GFR. For more informatio n, contactyour acc ount executive or se e announcement [email or web address] CALC BUN/CREAT (test 21 RATIO 6-28 code = 2235) SODIUM (test code = 143 MEQ/L 629-799 6848) POTASSIUM (test code 4.9 MEQ/L 3.5-5.4 = 2227) CHLORIDE (test code 104 MEQ/L 95-107 = 221) CARBON DIOXIDE (test 28 MEQ/L 19-31 code = 220) CALCIUM (test code = 9.8 MG/DL 8.5-10.5 2208) PROTEIN, TOTAL (test 6.8 G/DL 6.1-8.3 code = 222) ALBUMIN (test code = 4.5 G/DL 3.5-5.2 2200) CALC GLOBULIN (test 2.3 G/DL 1.9-3.7 code = 2240) CALC A/G RATIO (test 2.0 RATIO 1.0-2.6 code = 2234) BILIRUBIN, TOTAL 0.3 MG/DL See_Comment [Automated message] (test code = 2207) The syste m which generated this result transmit madan reference range : <=1.2. The refe rence range was not u sed to interpret th is result as normal/abnormal . ALKALINE PHOSPHATASE 90 U/L 40-142 (test code = 2204) AST (test code = 18 U/L 9-40 2217) ALT (test code = 15 U/L 5-40 2218) LIPID [id number] 21:24:46 Test Item Value Reference Range Interpretation Comments CHOLESTEROL (test 155 MG/DL <200 code = 2210) TRIGLYCERIDES (test 136 MG/DL <150 code = 2232) HDL CHOLESTEROL (test 47 MG/DL >39 code = 2220) CALC LDL CHOL (test 85 MG/DL <100 NOTE: C ALCULATED LDL code = 2237) IS BASED ON NICOLAS-GONZALEZ METHOD WHICHINCLUDES ADJUSTABLE TRIGLYCERIDE:VL DL CHOLESTEROL RAT IO.THIS FACTOR VARIES B Y MEASURED TRIGLY CERIDE AND NON-HDLCHOL ESTEROL CONCENTRATIONS WITH INCREASED CALCU LATED LDL SEENIN HIGH ER TRIGLYCERIDE OR LOWER NON-HDL SPECIME NS. FOR MOREINFORMATION , SEE CLIENT ANNOUNCE MENT AT [email or web address] LDL/HDL 1.81 RATIO <3.22 (test code = 2238) HEMOGLOBIN [id number] 03:22:54 Test Item Value Reference Range Interpretation Comments HEMOGLOBIN A1c (test 7.0 % 4.2-5.6 H AMERIC AN DIABETES code = 08568) ASSOCIATION IDELINES FOR HGB A1C: PREDIABETES/INC REASED RISK . . . . . . . 5.7 -6.4% DIAGNOSIS OF DI ABETES . . . . . . . . . >=6 .5% WITH CONFIRMATION OR APPROPRIATE SYMPTOMS NOTE: ASSAY MAY BE AFFECTED BY HEMOGLOBINOPATH IES (SICKLE CELL ANEMIA, S- C DISEASE, OTHERS) OR KJ FICIALLY LOWERED BY DECR EASED RED CELL SURVIVAL ( HEMOLYTIC ANEMIAS, BLOOD LOSS, ETC.). CONSIDER ALTERN ATE TESTING OR LABORATORY C ONSULTATION. UNLESS OTHERWIS E INDICATED, ALL TESTING PER FORMED ATCLINICAL PATH OLOGY LABORATORIES, [facility]. [address] [place] [address] LABORATORY DIRE CTOR: HARRY HERNANDEZ M.D. CLIA NUMBER [id number] [place]. [id number] COMPREHENSIVE METABOLIC [id number] 02:55:48 Test Item Value Reference Range Interpretation Comments GLUCOSE (test code = 122 MG/DL 70-99 H 2216) BUN (test code = 25 MG/DL 8-23 H 2207) CREATININE (test 1.18 MG/DL 0.60-1.30 code = 2214) eGFR (2020 CKD-EPI) 51 ML/MIN/1.73 >60 L (test code = 93656) CALC BUN/CREAT (test 21 RATIO 6-28 code = 2235) SODIUM (test code = 141 MEQ/L 937-693 7509) POTASSIUM (test code 4.4 MEQ/L 3.5-5.4 = 2227) CHLORIDE (test code 101 MEQ/L 95-107 = 2215) CARBON DIOXIDE (test 27 MEQ/L 19-31 code = 2206) CALCIUM (test code = 10.2 MG/DL 8.5-10.5 2208) PROTEIN, TOTAL (test 7.0 G/DL 6.1-8.3 code = 2229) ALBUMIN (test code = 4.6 G/DL 3.5-5.2 2200) CALC GLOBULIN (test 2.4 G/DL 1.9-3.7 code = 2240) CALC A/G RATIO (test 1.9 RATIO 1.0-2.6 code = 2234) BILIRUBIN, TOTAL 0.3 MG/DL See_Comment [Automated message] (test code = 2206) The syste m which generated this result transmit madan reference range : <=1.2. The refe rence range was not u sed to interpret th is result as normal/abnormal . ALKALINE PHOSPHATASE 98 U/L 40-142 (test code = 2203) AST (test code = 19 U/L 9-40 2217) ALT (test code = 17 U/L 5-40 2218) LIPID [id number] 02:55:48 Test Item Value Reference Range Interpretation Comments CHOLESTEROL (test 149 MG/DL <200 code = 2210) TRIGLYCERIDES (test 132 MG/DL <150 code = 2232) HDL CHOLESTEROL (test 48 MG/DL >39 code = 2220) CALC LDL CHOL (test 78 MG/DL <100 NOTE: C ALCULATED LDL code = 2237) IS BASED ON NICOLAS-GONZALEZ METHOD WHICHINCLUDES ADJUSTABLE TRIGLYCERIDE:VL DL CHOLESTEROL RAT IO.THIS FACTOR VARIES B Y MEASURED TRIGLY CERIDE AND NON-HDLCHOL ESTEROL CONCENTRATIONS WITH INCREASED CALCU LATED LDL SEENIN HIGH ER TRIGLYCERIDE OR LOWER NON-HDL SPECIME NS. FOR MOREINFORMATION , SEE CLIENT ANNOUNCE MENT AT [email or web address] LDL/HDL 1.63 RATIO <3.22 (test code = 2238) HEMOGLOBIN [id number] 06:45:07 Test Item Value Reference Range Interpretation Comments HEMOGLOBIN A1c (test 7.1 % 4.2-5.6 H AMERIC AN DIABETES code = 98591) ASSOCIATION IDELINES FOR HGB A1C: PREDIABETES/INC REASED RISK . . . . . . . 5.7 -6.4% DIAGNOSIS OF DI ABETES . . . . . . . . . >=6 .5% WITH CONFIRMATION OR APPROPRIATE SYMPTOMS NOTE: ASSAY MAY BE AFFECTED BY HEMOGLOBINOPATH IES (SICKLE CELL ANEMIA, S- C DISEASE, OTHERS) OR KJ FICIALLY LOWERED BY DECR EASED RED CELL SURVIVAL ( HEMOLYTIC ANEMIAS, BLOOD LOSS, ETC.). CONSIDER ALTERN ATE TESTING OR LABORATORY C ONSULTATION. UNLESS OTHERWIS E INDICATED, ALL TESTING PER FORMED ATCLINICAL PATH [facility], [place]. [address] [place] [address] LABORATORY DIRE CTOR: HARRY HERNANDEZ M.D. CLIA NUMBER [id number] [facility] [place]. [id number] TSH, THIRD [id number] 06:17:26 Test Item Value Reference Range Interpretation Comments TSH, THIRD GENERATION (test code 3.110 UIU/ML 0.400-4.100 = 1) COMPREHENSIVE METABOLIC [id number] 04:21:02 Test Item Value Reference Range Interpretation Comments GLUCOSE (test code = 84 MG/DL 70-99 2216) BUN (test code = 19 MG/DL 8-23 2207) CREATININE (test 1.04 MG/DL 0.60-1.30 code = 2214) eGFR (2020 CKD-EPI) 60 ML/MIN/1.73 >60 L (test code = 54526) CALC BUN/CREAT (test 18 RATIO 6-28 code = 2235) SODIUM (test code = 140 MEQ/L 049-511 3489) POTASSIUM (test code 4.4 MEQ/L 3.5-5.4 = 2228) CHLORIDE (test code 101 MEQ/L 95-107 = 2215) CARBON DIOXIDE (test 26 MEQ/L 19-31 code = 2206) CALCIUM (test code = 10.4 MG/DL 8.5-10.5 2208) PROTEIN, TOTAL (test 6.7 G/DL 6.1-8.3 code = 2229) ALBUMIN (test code = 4.2 G/DL 3.5-5.2 2200) CALC GLOBULIN (test 2.5 G/DL 1.9-3.7 code = 2240) CALC A/G RATIO (test 1.7 RATIO 1.0-2.6 code = 2234) BILIRUBIN, TOTAL 0.3 MG/DL See_Comment [Automated message] (test code = 2207) The syste m which generated this result transmit madan reference range : <=1.2. The refe rence range was not u sed to interpret th is result as normal/abnormal . ALKALINE PHOSPHATASE 85 U/L 40-140 (test code = 2203) AST (test code = 15 U/L 9-40 2217) ALT (test code = 14 U/L 5-40 2218) LIPID [id number] 04:21:02 Test Item Value Reference Range Interpretation Comments CHOLESTEROL (test 143 MG/DL <200 code = 2210) TRIGLYCERIDES (test 167 MG/DL <150 H code = 2232) HDL CHOLESTEROL (test 45 MG/DL >39 code = 2220) CALC LDL CHOL (test 73 MG/DL <100 NOTE: C ALCULATED LDL code = 2237) IS BASED ON NICOLAS-GONZALEZ METHOD WHICHINCLUDES ADJUSTABLE TRIGLYCERIDE:VL DL CHOLESTEROL RAT IO.THIS FACTOR VARIES B Y MEASURED TRIGLY CERIDE AND NON-HDLCHOL ESTEROL CONCENTRATIONS WITH INCREASED CALCU LATED LDL SEENIN HIGH ER TRIGLYCERIDE OR LOWER NON-HDL SPECIME NS. FOR MOREINFORMATION , SEE CLIENT ANNOUNCE MENT AT [email or web address] LDL/HDL 1.62 RATIO <3.22 (test code = 2238) TSH, THIRD [id number] 06:29:13 Test Item Value Reference Range Interpretation Comments TSH, THIRD 0.967 UIU/ML 0.400-4.100 UNLESS OTHERWI SE GENERATION (test INDICATED, ALL TESTING code = 2821) PERFORMED [facility] PATHOLOGY LABORATORIES, [place]. [address] [place] [address] LABOR ATORY DIRECTOR: HARRY HERNANDEZ M.D. CLIA NUMBER [id number] CAP ACCREDITATION N O. [id number] 12:24:00 Test Item Value Reference Range Interpretation Comments Blood Glucose, Capillary (test code = 128 74-106 Blood Glucose, Capillary) [id number] 12:24:00 Test Item Value Reference Range Interpretation Comments Blood Glucose, Capillary (test code = 128 74-106 Blood Glucose, Capillary) [facility] [id number] 15:01:00 Test Item Value Reference Range Interpretation Comments Results (test code = Reported (11/23/17 Results) 10:01 AM) [facility] CenterPjdujvwZXKUFKZJRI8426-70-07 15:01:00 Test Item Value Reference Range Interpretation Comments RDW (test code = RDW) 13.3 11.5-14.5 [facility] CenterWzofkdhKQLTNCHWDC3549-23-07 15:01:00 Test Item Value Reference Range Interpretation Comments MCHC (test code = MCHC) 33.6 32.0-36.0 [facility] C[id number] 15:01:00 Test Item Value Reference Range Interpretation Comments MPV (test code = MPV) 9.6 7.4-10.4 [facility] CenterIzlscqrUXTSYBRUIF9286-01-68 15:01:00 Test Item Value Reference Range Interpretation Comments Platelet (test code = Platelet) 287 133-450 [facility] CenterAypxnrzLKOONKHLAP5163-83-27 15:01:00 Test Item Value Reference Range Interpretation Comments MCV (test code = MCV) 85.4 80.0-98.0 [facility] CenterTzrhjwiOQXVVNYOSI9502-29-30 15:01:00 Test Item Value Reference Range Interpretation Comments Hematocrit (test code = Hematocrit) 38.5 36.0-48.0 [facility] CenterArznfxiFPMMKDIDCM2153-07-86 15:01:00 Test Item Value Reference Range Interpretation Comments Hemoglobin (test code = Hemoglobin) 12.9 12.0-16.0 [facility] CenterJuidpbxATNSVPFZYH6088-79-07 15:01:00 Test Item Value Reference Range Interpretation Comments Red Blood Cell Count (test code = Red 4.50 4.20-5.40 Blood Cell Count) [facility] CenterJcetnfzAPXMUQZFOE0713-11-78 15:01:00 Test Item Value Reference Range Interpretation Comments MCH (test code = MCH) 28.7 pg 27.0-31.0 [facility] CenterBetuqhwBCHGLCEZKW8733-72-05 15:01:00 Test Item Value Reference Range Interpretation Comments White Blood Count (test code = White 8.4 3.7-10.4 Blood Count) [facility] CenterVeqadxzMKFDBCWVLB4761-97-15 15:01:00 Test Item Value Reference Range Interpretation Comments Results (test code = Reported (11/23/17 Results) 10:01 AM) [facility] CenterFdetpkcWGVKEDRXPQ8577-94-11 15:01:00 Test Item Value Reference Range Interpretation Comments eGFR (test code = eGFR) 62 [facility] CenterKkgzsymUKVXAZEDNV1526-64-41 15:01:00 Test Item Value Reference Range Interpretation Comments Calcium Level (test code = Calcium 9.0 8.5-10.5 Level) [facility] CenterYszgecwWHYLWTDMDR4691-36-92 15:01:00 Test Item Value Reference Range Interpretation Comments AGAP (test code = AGAP) 14.2 10.0-20.0 [facility] CenterPmxzmdeYNUKERFWOC4144-12-09 15:01:00 Test Item Value Reference Range Interpretation Comments Carbon Dioxide Level (test code = 29 24-32 Carbon Dioxide Level) [facility] CenterAizhfflQZWMIHNEAO2263-81-20 15:01:00 Test Item Value Reference Range Interpretation Comments Chloride Level (test code = Chloride 98 95-109 Level) [facility] CenterCgtilzxKCMFBIQUQD5825-64-02 15:01:00 Test Item Value Reference Range Interpretation Comments Potassium Level (test code = Potassium 4.2 3.5-5.1 Level) [facility] CenterYxwwnodBSUTURMVSM3213-48-41 15:01:00 Test Item Value Reference Range Interpretation Comments Sodium Level (test code = Sodium Level) 137 135-145 [facility] CenterUxougigGMCXCNDPCZ2067-77-04 15:01:00 Test Item Value Reference Range Interpretation Comments Results (test code = Reported (11/23/17 Results) 10:01 AM) [facility] CenterKsxrsfqHKQUFZDABB6960-83-77 15:01:00 Test Item Value Reference Range Interpretation Comments RDW (test code = RDW) 13.3 11.5-14.5 [facility] CenterDyygysoVVMMVLTUOV3931-76-11 15:01:00 Test Item Value Reference Range Interpretation Comments MCHC (test code = MCHC) 33.6 32.0-36.0 [facility] CenterPdigrofCSCGGZZFYN9053-11-59 15:01:00 Test Item Value Reference Range Interpretation Comments MPV (test code = MPV) 9.6 7.4-10.4 [facility] CenterSnrhjpvUYGNQOTXXI8118-31-18 15:01:00 Test Item Value Reference Range Interpretation Comments Platelet (test code = Platelet) 287 133-450 [facility] CenterUqombanTTBSAGUJYQ7364-29-03 15:01:00 Test Item Value Reference Range Interpretation Comments MCV (test code = MCV) 85.4 80.0-98.0 [facility] CenterYgotonpCBQYXVVSBU3425-05-07 15:01:00 Test Item Value Reference Range Interpretation Comments Hematocrit (test code = Hematocrit) 38.5 36.0-48.0 [facility] CenterVsrnpwfFSKKFZVKTX0395-01-74 15:01:00 Test Item Value Reference Range Interpretation Comments Hemoglobin (test code = Hemoglobin) 12.9 12.0-16.0 [facility] CenterMfdhyijPLLDZQKLUV9009-39-57 15:01:00 Test Item Value Reference Range Interpretation Comments Red Blood Cell Count (test code = Red 4.50 4.20-5.40 Blood Cell Count) [facility] CenterKccszppDDIXGRFXCQ5471-52-32 15:01:00 Test Item Value Reference Range Interpretation Comments Creatinine (test code = Creatinine) 0.98 0.50-1.40 [facility] CenterHjbtpupALWBFVDJSD9546-38-05 15:01:00 Test Item Value Reference Range Interpretation Comments MCH (test code = MCH) 28.7 pg 27.0-31.0 [facility] CenterZzsxaktAMRSLHSOUA8608-06-17 15:01:00 Test Item Value Reference Range Interpretation Comments White Blood Count (test code = White 8.4 3.7-10.4 Blood Count) [facility] CenterQeyppsdSGAMOGWLGF4650-83-46 15:01:00 Test Item Value Reference Range Interpretation Comments Results (test code = Reported (11/23/17 Results) 10:01 AM) [facility] CenterXqnmbgwDRHZDMGRXN3973-97-52 15:01:00 Test Item Value Reference Range Interpretation Comments eGFR (test code = eGFR) 62 [facility] CenterNpzmlfbTZPMRYZTXB7846-72-52 15:01:00 Test Item Value Reference Range Interpretation Comments Calcium Level (test code = Calcium 9.0 8.5-10.5 Level) [facility] CenterWdhzmfiTEQOXYCKJD5291-12-34 15:01:00 Test Item Value Reference Range Interpretation Comments AGAP (test code = AGAP) 14.2 10.0-20.0 [facility] CenterLvallkcAHSPANENHA8746-98-18 15:01:00 Test Item Value Reference Range Interpretation Comments Carbon Dioxide Level (test code = 29 24-32 Carbon Dioxide Level) [facility] CenterLsdpljcJPFDHCKMFG1460-48-86 15:01:00 Test Item Value Reference Range Interpretation Comments Chloride Level (test code = Chloride 98 95-109 Level) [facility] CenterYocqvllJXHEZLYFHM5968-11-10 15:01:00 Test Item Value Reference Range Interpretation Comments Potassium Level (test code = Potassium 4.2 3.5-5.1 Level) [facility] CenterCylafwsVGWCNZCEYB7903-66-06 15:01:00 Test Item Value Reference Range Interpretation Comments Sodium Level (test code = Sodium Level) 137 135-145 [facility] CenterYvpyuhsXIXNCYJDHJ2659-53-11 15:01:00 Test Item Value Reference Range Interpretation Comments BUN (test code = BUN) 28 08- [facility] CenterFzujpljHIWZIFVPAH8349-90-53 15:01:00 Test Item Value Reference Range Interpretation Comments Creatinine (test code = Creatinine) 0.98 0.50-1.40 [facility] CenterVflugokFRVDKINLGZ3257-59-69 15:01:00 Test Item Value Reference Range Interpretation Comments BUN (test code = BUN) 08-29 [facility] CenterCawsmweWVAGBJETNS7674-80-24 15:01:00 Test Item Value Reference Range Interpretation Comments Glucose Lvl (test code = Glucose Lvl) 143 70-99 [facility] CenterKhhwyzsKMGGJMFPVM1992-28-93 15:01:00 Test Item Value Reference Range Interpretation Comments Results (test code = Reported (11/23/17 Results) 10:01 AM) [facility] CenterEabukgtCGTVCUSJHH2624-83-01 15:01:00 Test Item Value Reference Range Interpretation Comments Hgb A1c (test code = Hgb A1c) 10.4 [facility] CenterOuxxecyJSLCZHYKDX6657-96-61 15:01:00 Test Item Value Reference Range Interpretation Comments Results (test code = Scanned (11/23/17 Results) 10:01 AM) [facility] CenterTspavriBHLVSDAUOS0789-55-39 15:01:00 Test Item Value Reference Range Interpretation Comments Monocyte # (test code = 0.6 See_Comment [Au tomated message] The Monocyte #) system which ge nerated this result tra nsmitted reference range : <=0.8. The reference r nan was not used to int erpret this result as normal/abnormal . [facility] [id number] 15:01:00 Test Item Value Reference Range Interpretation Comments Eosinophil % (test code 0.2 See_Comment [Au tomated message] The = Eosinophil %) system which generated this result tra nsmitted reference range : <=0.5. The reference r nan was not used to int erpret this result as normal/abnormal . [facility] CenterJsnicthIIXTDUTNHT1483-33-74 15:01:00 Test Item Value Reference Range Interpretation Comments Lymphocyte # (test code = Lymphocyte #) 2.3 1.0-5.5 [facility] CenterAujbavlAKIJRXVKSI9761-40-65 15:01:00 Test Item Value Reference Range Interpretation Comments Basophil % (test code = 0.4 See_Comment [Au tomated message] The Basophil %) system which ge nerated this result tra nsmitted reference range : <=1.0. The reference r nan was not used to int erpret this result as normal/abnormal . [facility] CenterPkwfukzDAAKSRPPZY9527-91-18 15:01:00 Test Item Value Reference Range Interpretation Comments Glucose Lvl (test code = Glucose Lvl) 143 70-99 [facility] CenterHyzsyvqBUAPHUQSNN5353-00-02 15:01:00 Test Item Value Reference Range Interpretation Comments Neutrophil # (test code = Neutrophil #) 5.3 1.5-8.1 [facility] CenterHfmncwjYHVEGTHMPX7951-15-80 15:01:00 Test Item Value Reference Range Interpretation Comments Lymphocyte % (test code = Lymphocyte %) 27.7 20.0-40.0 [facility] CenterNgckemjZMVEICXKUI5541-69-41 15:01:00 Test Item Value Reference Range Interpretation Comments Eosinophil # (test code 2.0 See_Comment [Au tomated message] The = Eosinophil #) system which generated this result tra nsmitted reference range : <=4.0. The reference r nan was not used to int erpret this result as normal/abnormal . [facility] CenterWyipygoLNTRWOHGQS9396-74-45 15:01:00 Test Item Value Reference Range Interpretation Comments Basophil # (test code = 0.0 See_Comment [Au tomated message] The Basophil #) system which ge nerated this result tra nsmitted reference range : <=0.2. The reference r nan was not used to int erpret this result as normal/abnormal . [facility] CenterZkrrqkuUROYCCKHOK7030-91-60 15:01:00 Test Item Value Reference Range Interpretation Comments Monocyte % (test code = Monocyte %) 6.9 2.0-12.0 [facility] CenterKuzqufdKSWXWZQKPH0666-77-90 15:01:00 Test Item Value Reference Range Interpretation Comments Neutrophil % (test code = Neutrophil %) 63.0 45.0-75.0 [facility] Cent[id number] 15:01:00 Test Item Value Reference Range Interpretation Comments Results (test code = Reported (11/23/17 Results) 10:01 AM) [facility] CenterWaocdyvTASSCNFOFR2812-50-55 15:01:00 Test Item Value Reference Range Interpretation Comments Hgb A1c (test code = Hgb A1c) 10.4 [facility] Cent[id number] 15:01:00 Test Item Value Reference Range Interpretation Comments Results (test code = Scanned (11/23/17 Results) 10:01 AM) [facility] Cent[id number] 15:01:00 Test Item Value Reference Range Interpretation Comments Monocyte # (test code = 0.6 See_Comment [Au tomated message] The Monocyte #) system which ge nerated this result tra nsmitted reference range : <=0.8. The reference r nan was not used to int erpret this result as normal/abnormal . [facility] CenterYiketkuUSJVGUZVBS7790-82-23 15:01:00 Test Item Value Reference Range Interpretation Comments Eosinophil % (test code 0.2 See_Comment [Au tomated message] The = Eosinophil %) system which generated this result tra nsmitted reference range : <=0.5. The reference r nan was not used to int erpret this result as normal/abnormal . [facility] CenterXhyueidYLKRPTPAKL9447-68-61 15:01:00 Test Item Value Reference Range Interpretation Comments Lymphocyte # (test code = Lymphocyte #) 2.3 1.0-5.5 [facility] CenterZfrafbrNQILCHPJLR8959-57-02 15:01:00 Test Item Value Reference Range Interpretation Comments Basophil % (test code = 0.4 See_Comment [Au tomated message] The Basophil %) system which ge nerated this result tra nsmitted reference range : <=1.0. The reference r nan was not used to int erpret this result as normal/abnormal . [facility] Cent[id number] 15:01:00 Test Item Value Reference Range Interpretation Comments Neutrophil # (test code = Neutrophil #) 5.3 1.5-8.1 [facility] CenterPfpaicwXXMMVKMAVD4870-39-17 15:01:00 Test Item Value Reference Range Interpretation Comments Lymphocyte % (test code = Lymphocyte %) 27.7 20.0-40.0 [facility] CenterSpqvalxOKPRTVUJFO9398-09-55 15:01:00 Test Item Value Reference Range Interpretation Comments Eosinophil # (test code 2.0 See_Comment [Au tomated message] The = Eosinophil #) system which generated this result tra nsmitted reference range : <=4.0. The reference r nna was not used to int erpret this result as normal/abnormal . [facility] CenterTqebrswZSSPZNPNHE0573-95-24 15:01:00 Test Item Value Reference Range Interpretation Comments Basophil # (test code = 0.0 See_Comment [Au tomated message] The Basophil #) system which ge nerated this result tra nsmitted reference range : <=0.2. The reference r nan was not used to int erpret this result as normal/abnormal . [facility] CenterCeorpocHGSOHEIYOZ6467-57-84 15:01:00 Test Item Value Reference Range Interpretation Comments Monocyte % (test code = Monocyte %) 6.9 2.0-12.0 [facility] CenterMxstjvhSGDWOQGYQX3977-31-06 15:01:00 Test Item Value Reference Range Interpretation Comments Neutrophil % (test code = Neutrophil %) 63.0 45.0-75.0 [facility]"
--- NOTE | 2022-09-28 14:00 | RAD REPORT ---
EXAM DESCRIPTION: [place] Single View09/28/2022 1:50 pm CLINICAL HISTORY: sob COMPARISON: 2019 FINDINGS: The lungs appear clear of acute infiltrate. The heart is normal size IMPRESSION: No acute abnormalities displayed
--- NOTE | 2022-09-28 14:03 | RAD REPORT ---
EXAM DESCRIPTION: CT - Head Brain Wo Cont - 09/28/2022 1:47 pm CLINICAL HISTORY: Aphasia COMPARISON: 2019 TECHNIQUE: Computed axial tomography of the head was obtained. IV contrast was not requested. All CT scans are performed using dose optimization technique as appropriate and may include automated exposure control or mA/KV adjustment according to patient size. FINDINGS: An intracranial bleed is not seen The ventricles are normal in caliber No significant hypodense areas within the brain visualized No extra-axial fluid collection is noted. Stable small calcification frontal lobe Fluid within the sinuses/ mastoids is not seen IMPRESSION: No acute intracranial abnormality is seen If patient's symptoms persist MRI of the brain would be recommended
[2022-09-28 14:23] LABS: Absolute Lymphocytes (CBC) 2.8 K/uL (0.7-4.9); Hematocrit 37.7 % (36.0-45.0); Lymphocytes % 28.6 % (15.3-44.8); MCV 85.1 fL (80-100); MPV 8.7 fL (7.6-11.3); Platelets 283 thou/uL (152-406); RBC Red Blood Cell Count 4.44 M/uL (3.86-4.86)
[2022-09-28 14:28] LABS: Protime INR 1.11
[2022-09-28 14:41] LABS: Potassium 3.9 mEq/L (3.5-5.1); Troponin High Sensitivity 40.2 pg/mL (<58.9)
[2022-09-28] MEDS ORDERED: NA CHLORIDE 0.9% 1,000 ML ONE (15:41)
[2022-09-28 15:49] LABS: Specific Gravity 1.006 (1.005-1.030); Urine Bacteria <20 /HPF (<20); Urine Bilirubin NEGATIVE (Negative); Urine Blood Negative (Negative); Urine Clarity Turbid (Clear); Urine Color Colorless (Yellow); Urine Glucose NEGATIVE (Negative); Urine Protein NEGATIVE (Negative); Urine RBC <5 /HPF (None Seen); Urine Urobilinogen Normal (Normal)
--- NOTE | 2022-09-28 16:26 | EDPHYS ---
Physician Documentation [facility] Name: Rosi Gaytan Age: 67 yrs Sex: Female : 1955 Arrival Date: 09/28/2022 Time: 13:06 Bed 3 Private MD: ED Physician Michael Field HPI: 09/28 13:40 This 67 yrs old Female presents to ER via Wheelchair with complaints of aj3 Breathing Difficulty, Weakness. 13:40 According to patient's family, the patient has been slower with ambulation and speech aj3 over the last week. She was recently hospitalized a few months ago after having a head bleed. They report that her symptoms are similar to how she presented the first time. No reports of any recent trauma or injury. Patient reports feeling tired and weak. No headache, dizziness, chest pain or shortness of breath. Historical: - Allergies: 13:12 Ampicillin; ll1 - PMHx: 13:12 Diabetes - IDDM; GERD; Hyperlipidemia; Hypertension; Thyroid problem; ll1 - PSHx: 13:12 hysterectomy; shoulder SX; ll1 - Immunization history:: Client reports having NOT received the Covid vaccine. - Social history:: Smoking status: Patient denies any tobacco usage or history of. ROS: 13:40 Eyes: Negative for injury, pain, redness, and discharge, Neck: Negative for injury, aj3 pain, and swelling, Cardiovascular: Negative for chest pain, palpitations, and edema. 13:40 Abdomen/GI: Negative for abdominal pain, nausea, vomiting, diarrhea, and constipation, Skin: Negative for injury, rash, and discoloration. 13:40 Constitutional: Positive for fatigue, Negative for chills, fever. 13:40 Respiratory: Positive for dyspnea on exertion, Negative for cough, hemoptysis, wheezing. 13:40 MS/extremity: Negative for pain. 13:40 Neuro: Positive for tremor, weakness, Negative for altered mental status, numbness, tingling. Exam: 13:50 Head/Face: Normocephalic, atraumatic. Eyes: Pupils equal round and reactive to light, aj3 extra-ocular motions intact. Lids and lashes normal. Conjunctiva and sclera are non-icteric and not injected. Cornea within normal limits. Periorbital areas with no swelling, redness, or edema. Cardiovascular: Regular rate and rhythm with a normal S1 and S2. No gallops, murmurs, or rubs. Normal PMI, no JVD. No pulse deficits. Respiratory: Lungs have equal breath sounds bilaterally, clear to auscultation and percussion. No rales, rhonchi or wheezes noted. No increased work of breathing, no retractions or nasal flaring. Abdomen/GI: Soft, non-tender, with normal bowel sounds. No distension or tympany. No guarding or rebound. No evidence of tenderness throughout. Skin: Warm, dry with normal turgor. Normal color with no rashes, no lesions, and no evidence of cellulitis. MS/ Extremity: Pulses equal, no cyanosis. Neurovascular intact. Full, normal range of motion. 13:50 Constitutional: The patient appears alert, awake, anxious. 13:50 Neuro: Orientation: to person, place, time \T\ situation. Mentation: is normal, Cranial nerves: CN II- XII are normal as tested, Cerebellar function: is grossly normal, Motor: moves all fours, Strength is 3/5 in the Bilateral upper and lower extremity. 15:21 ECG was reviewed by the Attending Physician. aj3 Vital Signs: 13:13 BP 171 / 85; Pulse 62; Resp 17; Temp 97.3; Pulse Ox 99% ; Weight 92.53 kg; Height 5 ft. ll1 2 in. ; Pain 0/10; 15:14 BP 147 / 73; Pulse 52; Resp 18; Pulse Ox 96% on R/A; ld1 15:39 BP 150 / 76; Pulse 56; Resp 18; Pulse Ox 94% ; ld1 13:13 Body Mass Index 37.31 (92.53 kg, 157.48 cm) ll1 13:13 Pain Scale: Adult ll1 MDM: 13:29 Patient medically screened. aj3 15:23 Differential diagnosis: Anxiety Reaction Myocardial Infarction Intracranial hemorrhage, aj3 ischemic stroke, electrolyte imbalance, anemia. Data reviewed: vital signs, nurses notes, lab test result(s), radiologic studies, CT scan. Data reviewed: I have discussed the patient's presentation/case with the attending Emergency Department Physician;. Independent interpretation of the following test(s) in the Emergency Department CT Scan: My interpretation is No head bleed noted on my review. 16:15 Historians other than the Patient: Daughter/Son: Daughter. Care significantly affected aj3 by the following chronic conditions: Diabetes, Hypertension. Counseling: I had a detailed discussion with the patient and/or guardian regarding the historical points, exam findings, and any diagnostic results supporting the discharge/admit diagnosis, the presence of at least one elevated blood pressure reading (>120/80) during this emergency department visit, lab results, radiology results, the need for outpatient follow up, to return to the emergency department if symptoms worsen or persist or if there are any questions or concerns that arise at home. ED course: Patient's ED work-up reassuring without findings to warrant admission today. Patient ambulatory and reports feeling better. Will discharge home with supportive measures and have her follow-up with PCP. Strict ER return precautions given.. 09/28 13:34 Order name: Basic Metabolic Panel; Complete Time: 14:46 09/28 13:34 Order name: CBC with Diff; Complete Time: 14:40 09/28 13:34 Order name: High Sensitivity Troponin; Complete Time: 14:46 09/28 13:34 Order name: Protime (+inr); Complete Time: 14:29 09/28 13:34 Order name: Ptt, Activated; Complete Time: 14:29 09/28 15:19 Order name: Urinalysis W/Microscopic; Complete Time: 15:58 09/28 13:34 Order name: CT Head Brain wo Cont; Complete Time: 14:06 09/28 13:34 Order name: Stroke CXR 1 View; Complete Time: 14:06 09/28 13:34 Order name: EKG; Complete Time: 13:35 09/28 13:34 Order name: Accucheck; Complete Time: 15:09 09/28 13:34 Order name: Cardiac monitoring; Complete Time: 15:25 09/28 13:34 Order name: EKG - Nurse/Tech; Complete Time: 15:25 09/28 13:34 Order name: IV Saline Lock; Complete Time: 14:14 09/28 13:34 Order name: Labs collected and sent; Complete Time: 14:14 09/28 13:34 Order name: NPO; Complete Time: 14:35 09/28 13:34 Order name: O2 Per Protocol; Complete Time: 14:35 aj3 09/28 13:34 Order name: O2 Sat Monitoring; Complete Time: 14:35 aj3 09/28 13:34 Order name: Stroke Swallow Screen; Complete Time: 15:09 aj3 EC: Rate is 55 beats/min. Rhythm is regular. QRS [place] is Normal. MO interval is prolonged aj3 at 208 msec. QRS interval is normal. QT interval is normal. T waves are Normal. No ST changes noted. Clinical impression: Sinus bradycardia with first-degree block. Administered Medications: 15:41 Drug: NS 0.9% IV 1000 ml Route: IV; Rate: 1 bolus; Site: right antecubital; ld1 Disposition Summary: 09/28/22 16:25 Discharge Ordered Location: Home aj3 Problem: new aj3 Symptoms: have improved aj3 Condition: Stable aj3 Diagnosis - Weakness aj3 - Hyperglycemia, unspecified aj3 Followup: aj3 - With: Private Physician - When: - Reason: If symptoms return, Recheck today's complaints, Re-evaluation by your physician Forms: - Medication Reconciliation Form aj3 - Thank You Letter aj3 - Antibiotic Education aj3 - Prescription Opioid Use aj3 - Patient Portal Instructions aj3 - Leadership Thank You Letter aj3 Signatures: Dispatcher [employer] EDButch Navarro RN RN ll1 Jadyn Rivera RN RN ld1 Zoë Chi, MATT NETWORK TECHNICIAN aj3 Corrections: (The following items were deleted from the chart) 14:43 13:40 According to patient's family, the patient has been slower with ambulation and aj3 speech over the last week. She was recently hospitalized a few months ago after having a head bleed. They report that her symptoms are similar to how she presented the first time. No reports of any recent trauma or injury.. aj3
--- NOTE | 2022-09-28 16:26 | ER ---
Nurse's Notes [facility] Name: Rosi Gaytan Age: 67 yrs Sex: Female : 1955 Arrival Date: 09/28/2022 Time: 13:06 Bed 3 Private MD: Diagnosis: Weakness;Hyperglycemia, unspecified Presentation: 09/28 13:13 Chief complaint: Patient states: Weak, dizzy, SOB, trouble speaking off/on for 1 week. ll1 Very shaky upon arrival. Had brain bleed 3 months ago. Coronavirus screen: Vaccine status: Patient reports being unvaccinated. Client denies travel out of the [place] in the last 14 days. At this time, the client does not indicate any symptoms associated with coronavirus-19. Ebola Screen: Patient denies travel to an Ebola-affected area in the 21 days before illness onset. Initial Sepsis Screen: Does the patient meet any 2 criteria? No. Patient's initial sepsis screen is negative. Does the patient have a suspected source of infection? No. Patient's initial sepsis screen is negative. Risk Assessment: Do you want to hurt yourself or someone else? Patient reports no desire to harm self or others. Onset of symptoms was September 21, 2022. 13:13 Method Of Arrival: Wheelchair ll1 13:13 Acuity: BILL 2 ll1 Triage Assessment: 16:43 General: Appears in no apparent distress. comfortable, Behavior is calm, cooperative, ld1 appropriate for age. Pain: Denies pain. Respiratory: the patient has mild shortness of breath. Historical: - Allergies: 13:12 Ampicillin; ll1 - PMHx: 13:12 Diabetes - IDDM; GERD; Hyperlipidemia; Hypertension; Thyroid problem; ll1 - PSHx: 13:12 hysterectomy; shoulder SX; ll1 - Immunization history:: Client reports having NOT received the Covid vaccine. - Social history:: Smoking status: Patient denies any tobacco usage or history of. Screenin:39 [facility] ED Fall Risk Assessment (Adult) History of falling in the last 3 months, ld1 including since admission No falls in past 3 months (0 pts). Abuse screen: Denies threats or abuse. Denies injuries from another. Nutritional screening: No deficits noted. Tuberculosis screening: No symptoms or risk factors identified. Assessment: 15:39 General: Appears in no apparent distress. comfortable, Behavior is calm, cooperative, ld1 appropriate for age. Pain: Denies pain. Neuro: Level of Consciousness is awake, alert, obeys commands, Oriented to person, place, time, situation, Reports weakness. Cardiovascular: Capillary refill < 3 seconds Patient's skin is warm and dry. Rhythm is sinus bradycardia. Respiratory: Airway is patent Respiratory effort is even, unlabored, Breath sounds are clear bilaterally. GI: Abdomen is round non-distended. : No signs and/or symptoms were reported regarding the genitourinary system. EENT: No signs and/or symptoms were reported regarding the EENT system. Derm: No signs and/or symptoms reported regarding the dermatologic system. Musculoskeletal: No signs and/or symptoms reported regarding the musculoskeletal system. Vital Signs: 13:13 BP 171 / 85; Pulse 62; Resp 17; Temp 97.3; Pulse Ox 99% ; Weight 92.53 kg; Height 5 ft. ll1 2 in. ; Pain 0/10; 15:14 BP 147 / 73; Pulse 52; Resp 18; Pulse Ox 96% on R/A; ld1 15:39 BP 150 / 76; Pulse 56; Resp 18; Pulse Ox 94% ; ld1 13:13 Body Mass Index 37.31 (92.53 kg, 157.48 cm) ll1 13:13 Pain Scale: Adult ll1 ED Course: 13:07 Patient arrived in ED. rg4 13:10 Zoë Chi NP is PHCP. aj3 13:10 Michael Field MD is Attending Physician. aj3 13:14 Triage completed. ll1 13:14 Arm band placed on. ll1 13:49 CT Head Brain wo Cont In Process Unspecified. EDMS 13:51 Stroke CXR 1 View In Process Unspecified. EDMS 14:14 Inserted saline lock: 20 gauge in right antecubital area, using aseptic technique. zm Blood collected. 14:14 Initial lab(s) drawn, by me, sent to lab. zm 14:32 Flaquito Shearer, RN is Primary Nurse. bp 15:39 Patient has correct armband on for positive identification. Placed in gown. Bed in low ld1 position. Call light in reach. Side rails up X2. protection specialist on. Pulse ox on. NIBP on. Door closed. Noise minimized. Warm blanket given. 15:39 Urinalysis W/Microscopic Sent. ld1 15:39 No provider procedures requiring assistance completed. ld1 16:43 IV discontinued, intact, bleeding controlled, No redness/swelling at site. ld1 Administered Medications: 15:41 Drug: NS 0.9% IV 1000 ml Route: IV; Rate: 1 bolus; Site: right antecubital; ld1 Medication: 16:43 VIS not applicable for this client. ld1 Outcome: 16:25 Discharge ordered by MD. nicole 16:43 Discharged to home ambulatory. ld1 16:43 Condition: stable 16:43 Discharge instructions given to patient, Instructed on discharge instructions, follow up and referral plans. Demonstrated understanding of instructions, follow-up care. 16:43 Patient left the ED. ld1 Signatures: Dispatcher [employer] Ines Moreno rg4 Flaquito Shearer RN RN Butch Nogueira RN RN ll1 Jadyn Rivera RN RN ld1 Kiki Atkins Amanda, NP CODING SPECIALIST HOME HEALTH aj3
[2022-09-28 16:57] VITALS: TEMP 97.3
[2022-09-28 17:08] VITALS: BP 150/76; O2SAT 94
--- NOTE | 2022-09-28 18:12 | EKG ---
Test Date: 2022-09-28 Test Time: 15:21:44 Commercial Coordinator: Thang Schwartz MEASUREMENT RESULTS: Intervals: Rate: 55 IN: 208 QRSD: 92 QT: 436 QTc: 417 Iraan: P: 46 IN: 208 QRS: 48 T: 36 INTERPRETIVE STATEMENTS: Sinus bradycardia Otherwise normal ECG Compared to ECG 12/13/2018 09:24:48 Sinus rhythm no longer present Electronically Signed On 09-28-22 18:02:26 CDT by Wesley Ely
== END 2022-09-28 16:43 | disposition home or self-care (01) ==
LOC: ER 13:06
DX: E11.65 Type 2 diabetes mellitus with hyperglycemia (principal); I10 Essential (primary) hypertension; E78.5 Hyperlipidemia, unspecified; Z88.1 Allergy status to other antibiotic agents
CPT/HCPCS: 93005; 85025; 81001; 80048; 36415; 85610; 85730; 84484; 70450; 71045; 99285; J7030

== ENCOUNTER 2024-06-02 21:59 | Emergency (ER) | payer OTHER ==
--- NOTE | 2024-06-02 23:41 | ER ---
Nurse's Notes [facility] Name: Rosi Gaytan Age: 69 yrs Sex: Female : 1955 Arrival Date: 06/02/2024 Time: 21:59 Bed 17 Private MD: Diagnosis: Constipation, unspecified Presentation: 06/02 22:47 Chief complaint: Patient states: CONSTIPATION X2 DAYS. DENIES ABDOMINAL PAIN, C/O dd2 RECTAL PAIN FROM STRAINING. PT REPORTS TAKING DULCOLAX X2 TODAY. Coronavirus screen: At this time, the client does not indicate any symptoms associated with coronavirus-19. Ebola Screen: No symptoms or risks identified at this time. Initial Sepsis Screen: Does the patient meet any 2 criteria? No. Patient's initial sepsis screen is negative. Does the patient have a suspected source of infection? No. Patient's initial sepsis screen is negative. Risk Assessment: Do you want to hurt yourself or someone else? Patient reports no desire to harm self or others. Onset of symptoms was June 01, 2024. 22:47 Method Of Arrival: Ambulatory dd2 22:47 Acuity: BILL 3 dd2 Triage Assessment: 22:56 General: Appears in no apparent distress. uncomfortable, Behavior is calm, cooperative, dd2 appropriate for age. Pain: Complains of pain in RECTAL Pain does not radiate. EENT: No deficits noted. No signs and/or symptoms were reported regarding the EENT system. Neuro: No deficits noted. Level of Consciousness is awake, alert, obeys commands, Oriented to person, place, time, situation, Appropriate for age. Cardiovascular: No deficits noted. Respiratory: No deficits noted. Airway is patent Respiratory effort is even, unlabored, Respiratory pattern is regular, symmetrical. GI: Reports constipation, RECTAL PAIN. Historical: - Allergies: 22:56 Ampicillin; dd2 - PMHx: 22:56 Diabetes - IDDM; GERD; Hyperlipidemia; Hypertension; Thyroid problem; dd2 - PSHx: 22:56 hysterectomy; shoulder SX; dd2 - Immunization history:: Adult Immunizations up to date. - Infectious Disease History:: Denies. - Social history:: Smoking status: Patient denies any tobacco usage or history of. Screenin:47 [facility] ED Fall Risk Assessment (Adult) History of falling in the last 3 months, rg5 including since admission No falls in past 3 months (0 pts) Confusion or Disorientation No (0 pts) Intoxicated or Sedated No (0 pts) Impaired Gait No (0 pts) Mobility Assist Device Used No (0 pt) Altered Elimination No (0 pt) Score/Fall Risk Level 0 - 2 = Low Risk Oriented to surroundings, Maintained a safe environment, Hourly rounding (assess needs \T\ fall precautionary measures) done. Abuse screen: Denies threats or abuse. Nutritional screening: No deficits noted. Tuberculosis screening: No symptoms or risk factors identified. Assessment: 23:47 General: Appears in no apparent distress. comfortable, Behavior is calm, cooperative, rg5 appropriate for age. Pain: Complains of pain in abdomen. Neuro: Level of Consciousness is awake, alert, obeys commands, Oriented to person, place, time, situation. Cardiovascular: Patient's skin is warm and dry. Respiratory: Airway is patent Trachea midline Respiratory effort is even, unlabored, Respiratory pattern is regular, symmetrical. GI: Abdomen is round non-distended, Bowel sounds present in left lower quadrant Abd is soft Reports constipation, cramping. : No signs and/or symptoms were reported regarding the genitourinary system. EENT: No signs and/or symptoms were reported regarding the EENT system. Derm: No signs and/or symptoms reported regarding the dermatologic system. Musculoskeletal: Circulation, motion, and sensation intact. Range of motion: intact in all extremities. Vital Signs: 22:47 BP 154 / 86; Pulse 76; Resp 16; Temp 98.5; Pulse Ox 100% on R/A; Weight 97.52 kg; dd2 Height 5 ft. 2 in. ; Pain 6/10; 23:30 BP 131 / 79; Pulse 75; Resp 18; Pulse Ox 99% ; Pain 0/10; rg5 22:47 Body Mass Index 39.32 (97.52 kg, 157.48 cm) dd2 22:47 Pain Scale: Adult dd2 23:30 Pain Scale: Adult rg5 ED Course: 22:04 Patient arrived in ED. gm2 22:06 Anatoliy Rivera DO is Attending Physician. ms3 22:56 Triage completed. dd2 22:56 Arm band placed on right wrist. dd2 23:04 Titi Martinez, [place] is Primary Nurse. rg5 23:41 John Bonilla MD is Referral Physician. ms3 23:47 Patient has correct armband on for positive identification. Placed in gown. Bed in low rg5 position. Call light in reach. Door closed. Noise minimized. 23:47 Provided Education on: post er care. rg5 23:47 No provider procedures requiring assistance completed. Patient did not have IV access rg5 during this emergency room visit. Administered Medications: 23:24 Drug: soap suds 1 units [place] bolus Route: [place]; rg5 23:49 Follow up: Response: No adverse reaction rg5 Medication: 23:47 VIS not applicable for this client. rg5 Outcome: 23:41 Discharge ordered by . ms3 06/03 00:15 Discharged to home ambulatory, rg5 Condition: stable Discharge instructions given to patient, 00:16 Patient left the ED. rg5 Signatures: Anatoliy Rivera DO DO ms3 Tena Jeong gm2 Titi Martinez RN RN rg5 ABY CUTLER RN RN dd2
--- NOTE | 2024-06-02 23:41 | EDPHYS ---
Physician Documentation [facility] Name: Rosi Gaytan Age: 69 yrs Sex: Female : 1955 Arrival Date: 06/02/2024 Time: 21:59 Bed 17 Private MD: ED Physician Anatoliy Rivera HPI: 06/02 23:33 This 69 yrs old Female presents to ER via Ambulatory with complaints of Pain, ms3 Constipation. 23:33 69-year-old female with past medical history of diabetes, GERD, hyperlipidemia, ms3 hypertension, hypothyroidism presents to the emergency department for constipation x 2 weeks. Patient states she is having rectal pressure and pain at this time. She rates her discomfort a 9/10. She denies any alleviating or inciting factors. Patient states she attempted to take laxatives without resolution of her symptoms.. Historical: - Allergies: 22:56 Ampicillin; dd2 - PMHx: 22:56 Diabetes - IDDM; GERD; Hyperlipidemia; Hypertension; Thyroid problem; dd2 - PSHx: 22:56 hysterectomy; shoulder SX; dd2 - Immunization history:: Adult Immunizations up to date. - Infectious Disease History:: Denies. - Social history:: Smoking status: Patient denies any tobacco usage or history of. ROS: 23:33 Constitutional: Negative for fever, and chills. Cardiovascular: Negative for chest ms3 pain, and palpitations. Respiratory: Negative for shortness of breath, cough, wheezing, and pleuritic chest pain, MS/Extremity: Negative for injury and deformity, Skin: Negative for injury, rash, and discoloration, 23:33 Abdomen/GI: Positive for constipation, Negative for nausea and vomiting, Exam: 23:33 Constitutional: This is a well developed, well nourished patient who is awake, alert, ms3 and in no acute distress. Cardiovascular: Regular rate and rhythm with a normal S1 and S2. No gallops, murmurs, or rubs. Normal PMI, no JVD. No pulse deficits. Respiratory: Lungs have equal breath sounds bilaterally, clear to auscultation and percussion. No rales, rhonchi or wheezes noted. No increased work of breathing, no retractions or nasal flaring. Abdomen/GI: Soft, non-tender, with normal bowel sounds. No distension or tympany. No guarding or rebound. No evidence of tenderness throughout. Skin: Warm, dry with normal turgor. Normal color with no rashes, no lesions, and no evidence of cellulitis. MS/ Extremity: Pulses equal, no cyanosis. Neurovascular intact. Full, normal range of motion. Vital Signs: 22:47 BP 154 / 86; Pulse 76; Resp 16; Temp 98.5; Pulse Ox 100% on R/A; Weight 97.52 kg; dd2 Height 5 ft. 2 in. ; Pain 6/10; 23:30 BP 131 / 79; Pulse 75; Resp 18; Pulse Ox 99% ; Pain 0/10; rg5 22:47 Body Mass Index 39.32 (97.52 kg, 157.48 cm) dd2 22:47 Pain Scale: Adult dd2 23:30 Pain Scale: Adult rg5 MDM: 22:52 Medical Screening Exam initiated ms3 23:33 Differential diagnosis: Constipation. Data reviewed: vital signs, nurses notes, and as ms3 a result, I will discharge patient. I considered the following discharge prescriptions or medication management in the emergency department Medications were administered in the Emergency Department. See MAR. Counseling: I had a detailed discussion with the patient and/or guardian regarding the historical points, exam findings, and any diagnostic results supporting the discharge/admit diagnosis, the need for outpatient follow up, to return to the emergency department if symptoms worsen or persist or if there are any questions or concerns that arise at home. Special discussion: I discussed with the patient/guardian in detail that at this point there is no indication for admission to the hospital. It is understood, however, that if the symptoms persist or worsen the patient needs to return immediately for re-evaluation. ED course: After soapsuds enema patient's symptoms improved, patient states she can comfortably sit at this time. Patient is alert and orient x 4, no apparent distress, nontoxic-appearing, speaking full sentences, abdomen benign. Patient to follow-up with primary care physician in 2 to 3 days. Patient understands and agrees with plan. Return precautions discussed include worsening symptoms, fevers, chills, or any other concerns. Discussed [id number] Metamucil or Benefiber, and MiraLAX with patient.. Administered Medications: 23:24 Drug: soap suds 1 units [place] bolus Route: [place]; rg5 23:49 Follow up: Response: No adverse reaction rg5 Disposition Summary: 06/02/24 23:41 Discharge Ordered Notes: Location: Home ms3 Condition: Stable ms3 Diagnosis - Constipation, unspecified ms3 Followup: ms3 - With: John Bonilla MD - When: 2 - 3 days - Reason: Recheck today's complaints Discharge Instructions: - Discharge Summary Sheet ms3 - Constipation, Adult ms3 Forms: - Medication Reconciliation Form ms3 - Antibiotic Education ms3 - Prescription Opioid Use ms3 - Patient Portal Instructions ms3 - Leadership Thank You Letter ms3 Signatures: Anatoliy Rivera DO DO ms3 Titi Martinez RN RN rg5 ABY CUTLER RN RN dd2
[2024-06-03 02:13] VITALS: TEMP 98.5
[2024-06-03 02:15] VITALS: BP 131/79; O2SAT 99
== END 2024-06-03 00:16 | disposition home or self-care (01) ==
LOC: ER 21:59
DX: K59.00 Constipation, unspecified (principal)
CPT/HCPCS: 99283